=== PATIENT | male | born 1960 | race Caucasian/White ===

== ENCOUNTER 2017-05-13 22:03 | Emergency (ER) | END 2017-05-14 02:47 | disposition home or self-care (01) ==

== ENCOUNTER 2017-12-27 21:54 | Inpatient (IN) | END 2017-12-30 14:50 | disposition home or self-care (01) | DRG 871 ==

== ENCOUNTER 2018-02-16 08:20 | Emergency (ER) | payer MEDICARE, BC ==
[~2018-02-16] VITALS: Ht 177.8 cm; Wt 100.0 kg
[~2018-02-16 08:20] MED LIST: ASPI81TA52 PO; ATOR40TA68 PO; CEPH500C PO; FENO160T13 PO; GLIM4TAB PO; INSU300I SQ; LINA5TAB PO; NIAC1000 PO; OMEG1CAP2 PO
[2018-02-16] MEDS ORDERED: ONDANSETRON 4 MG INJ IV STA (08:24)
[2018-02-16] MEDS ORDERED: morphine 4 MG/ML VIAL IV STA (08:24)
[2018-02-16] MEDS ORDERED: SOD CHLORIDE 0.9% 1,000 ML IV STA (08:24)
[2018-02-16] MEDS ORDERED: PANTOPRAZOLE 40 MG INJ IV ONE (08:30)
[2018-02-16 08:33] VITALS: Ht 177.8 cm; Wt 100.0 kg
[2018-02-16] MEDS ORDERED: CEFTRIAXONE 1 GM/50 ML (PMX) 50 ML IVPB ONE (09:30)
[2018-02-16] MEDS ORDERED: ONDA4TAB14 PO (11:11)
[2018-02-16] MEDS ORDERED: HYDR-4011 PO (11:11)
[2018-02-16] MEDS ORDERED: NITR-58 PO (11:11)
[2018-02-16 11:23] VITALS: BP 117/68; PULSE 92
--- NOTE | 2018-02-16 13:38 | ERD ---
ER Documentation Chief Complaint Chief Complaint pt is bib RA 89 from home with c/o abd pain starting last night + vomiting HPI Patient is a 57-year-old male with diabetes who presents with saying that he feels "sick". The patient was brought in by ambulance. He had abdominal pain which started last night. He stated that he vomited bright red blood this morning. He has never had this before. He said "I think I just threw up too hard". He was vomiting first and then had the bloody vomit. He has had no treatment as of yet. Upon review of old medical records the patient has multiple visits to the ER. He does not remember the name of his primary doctor. ROS All systems reviewed and are negative except as per history of present illness. Medications Home Meds Active Scripts Ondansetron (Ondansetron Odt) 4 Mg Tab.rapdis, 4 MG PO Q6H PRN for NAUSEA AND/OR VOMITING, #10 TAB Prov:SAEED ROMANO MD 02/16/18 Hydrocodone/Acetaminophen ([place] 5-325 Tablet) 1 Each Tablet, 1 TAB PO Q6H PRN for PAIN, #7 TAB Prov:SAEED ROMANO MD 02/16/18 Nitrofurantoin Monohyd Macrocr* (Macrobid*) 100 Mg Capsr, 100 MG PO BID for 7 Days, CAP Prov:SAEED ROMANO MD 02/16/18 Reported Medications Aspirin (Low Dose Aspirin) 81 Mg Tablet.dr, 81 MG PO DAILY, #30 TAB 12/27/17 Niacin* (Niacin* ER) 1,000 Mg Tablet.sa, 1500 MG PO QHS, #30 TAB 12/27/17 Atorvastatin* (Atorvastatin*) 40 Mg Tablet, 40 MG PO QHS, #30 TAB 12/27/17 Insulin Glargine,Hum.rec.anlog ([place] Solostar) 300 Unit/1 Ml Insuln.pen, 30 UNIT SQ QHS, EA 12/27/17 [place]-3 Acid Ethyl Esters (Lovaza) 1 Gm Capsule, 2 GM PO BID, CAP 12/27/17 Linagliptin (TRADJENTA) 5 Mg Tablet, 5 MG PO DAILY, TAB 12/27/17 Fenofibrate, Micronized* (Fenofibrate*) 160 Mg Tablet, 160 MG PO DAILY, TAB 12/27/17 Glimepiride* (Glimepiride*) 4 Mg Tablet, 4 MG PO WITH BREAKFAST DINNE, TAB 12/27/17 Discontinued Scripts Cephalexin* (Cephalexin*) 500 Mg Capsule, 500 MG PO BID for 4 Days, #7 CAP next dose tonight 12/30 Prov:PAM REYONSO MD 12/30/17 Allergies Allergies: Coded Allergies: No Known Allergy (Unverified , 02/16/18) PMhx/Soc History of Surgery: Yes (2017 LEFT NEPHRECTOMY) Anesthesia Reaction: No Hx Neurological Disorder: No Hx Respiratory Disorders: No Hx Cardiac Disorders: Yes (HTN, HLD) Hx Psychiatric Problems: No Hx Miscellaneous Medical Probl: No Hx Alcohol Use: No Hx Substance Use: No Hx Tobacco Use: No Smoking Status: Never smoker FmHx Family History: No diabetes Physical Exam Vitals Vital Signs Date Temp Pulse Resp B/P (MAP) Pulse Ox O2 O2 Flow FiO2 Time Delivery Rate 02/16/18 92 117/68 97 Room Air 11:23 (84) 02/16/18 63 108/85 92 Room Air 09:16 (93) 02/16/18 98.9 89 18 108/85 100 08:33 (93) Physical Exam Const: No acute distress Head: Atraumatic Eyes: Normal Conjunctiva ENT: Normal External Ears, Nose and Mouth. Neck: Full range of motion. No meningismus. Resp: Clear to auscultation bilaterally Cardio: Regular rate and rhythm, no murmurs Abd: Soft, non tender, non distended. Normal bowel sounds Skin: No petechiae or rashes Back: No midline or flank tenderness Ext: No cyanosis, or edema Neur: Awake and alert Psych: Normal Mood and Affect Result Diagram: 02/16/18 0842 02/16/18 0843 Results 24 hrs Laboratory Tests Test 02/16/18 08:42 02/16/18 08:43 White Blood Count 10.8 10^3/ul Red Blood Count 4.43 10^6/ul Hemoglobin 12.9 g/dl Hematocrit 39.4 % Mean Corpuscular Volume 88.9 fl Mean Corpuscular Hemoglobin 29.1 pg Mean Corpuscular Hemoglobin Concent 32.7 g/dl Red Cell Distribution Width 15.3 % Platelet Count 268 10^3/UL Mean Platelet Volume 10.5 fl Immature Granulocytes % 0.300 % Neutrophils % 73.2 % Lymphocytes % 9.3 % Monocytes % 14.0 % Eosinophils % 2.7 % Basophils % 0.5 % Nucleated Red Blood Cells % 0.0 /100WBC Immature Granulocytes # 0.030 10^3/ul Neutrophils # 7.9 10^3/ul Lymphocytes # 1.0 10^3/ul Monocytes # 1.5 10^3/ul Eosinophils # 0.3 10^3/ul Basophils # 0.1 10^3/ul Nucleated Red Blood Cells # 0.0 10^3/ul Urine Color YELLOW Urine Clarity SLIGHTLY CLOUDY Urine pH 5.0 Urine Specific [place] 1.014 Urine Ketones NEGATIVE mg/dL Urine Nitrite NEGATIVE mg/dL Urine Bilirubin NEGATIVE mg/dL Urine Urobilinogen NEGATIVE mg/dL Urine Leukocyte Esterase 1+ Jonathan/ul Urine Microscopic RBC 1 /HPF Urine Microscopic WBC 9 /HPF Urine Hemoglobin 2+ mg/dL Urine Glucose NEGATIVE mg/dL Urine Total Protein 1+ mg/dl Sodium Level 142 mmol/L Potassium Level 4.2 mmol/L Chloride Level 107 mmol/L Carbon Dioxide Level 21 mmol/L Anion Gap 14 Blood Urea Nitrogen 37 mg/dl Creatinine 2.65 mg/dl Est Glomerular Filtrat Rate mL/min 25 mL/min Glucose Level 148 mg/dl Calcium Level 9.4 mg/dl Total Bilirubin 0.3 mg/dl Direct Bilirubin 0.00 mg/dl Indirect Bilirubin 0.3 mg/dl Aspartate Amino Transf (AST/SGOT) 62 IU/L Alanine Aminotransferase (ALT/SGPT) 37 IU/L Alkaline Phosphatase 60 IU/L Total Protein 8.5 g/dl Albumin 4.5 g/dl Globulin 4.00 g/dl Albumin/Globulin Ratio 1.12 Lipase 313 U/L Current Medications Medications Dose Sig/Julisa Start Time Status Last (Trade) Ordered Route PRN Stop Time Admin Dose Reason Admin Sodium 1,000 ml @ Q1H STAT 02/16/18 DC 02/16/18 Chloride 1,000 mls/hr IV 08:24 02/16/18 08:50 09:23 Morphine 4 mg ONCE STAT 02/16/18 DC 02/16/18 Sulfate IV 08:24 02/16/18 08:50 (morphine) 08:25 Ondansetron 4 mg ONCE STAT 02/16/18 DC 02/16/18 HCl (Zofran IV 08:24 02/16/18 08:50 Inj) 08:25 40 mg ONCE ONCE 02/16/18 DC 02/16/18 Pantoprazole IV 08:30 02/16/18 08:50 (Protonix 08:31 Iv) Ceftriaxone 50 ml @ ONCE ONCE 02/16/18 DC 02/16/18 Sodium 100 mls/hr IVPB 09:30 02/16/18 09:21 09:59 Procedures/MDM CT abdomen and pelvis was read by radiology. Patient is a 57-year-old male who presents with complaints of feeling sick with abdominal pain and vomiting blood. The patient has basically normal laboratory studies. He was found to have a mild urinary tract infection. CT scan of the abdomen pelvis shows no surgical process. At this point I doubt sepsis or serious bacterial infection. Laboratory studies were otherwise unremarkable and CT scan shows no surgical process. The patient can be managed as an outpatient does not require admission to the hospital at this time. The patient will be given a prescription for Macrobid but will need to follow-up closely with the primary doctor within 24-48 hours. The patient can return sooner for any worsening symptoms. Copies of laboratory studies and CT scan were given prior to discharge. Departure Diagnosis: Primary Impression: Cystitis Additional Impression: Abdominal pain Abdominal location: unspecified location Qualified Codes: R10.9 - Unspecified abdominal pain Condition: Fair Patient Instructions: Abdominal Pain, Cystitis Referrals: Your doctor Additional Instructions: Call your primary care doctor TOMORROW for an appointment during the next 1-2 days.See the doctor sooner or return here if your condition worsens before your appointment time. SAEED ROMANO MD Feb 16, 2018 13:38
== END 2018-02-16 11:29 | disposition home or self-care (01) ==
LOC: E/R 08:20
DX: N30.90 Cystitis, unspecified without hematuria (principal); I10 Essential (primary) hypertension; Z79.4 Long term (current) use of insulin; Z79.82 Long term (current) use of aspirin
CPT/HCPCS: 36415; 74176; 80053; 81001; 83690; 85025; 87086; 96374; 96375; 99285; C9113; J0696; J2270; J2405; J7030

== ENCOUNTER 2018-04-19 18:39 | Inpatient (IN) | payer MEDICARE, BC ==
[~2018-04-19] VITALS: Ht 172.7 cm; Wt 100.0 kg
[~2018-04-19 18:39] MED LIST changes: -CEPH500C PO; +HYDR-4011 PO; +NITR-58 PO; +ONDA4TAB14 PO
--- NOTE | 2018-04-19 18:47 | ERD ---
ER Documentation Chief Complaint Chief Complaint LUIS CAVAZOS from home,chest sharp nonradiating pain 10/10 HPI The patient is a 58-year-old male, presenting to the ER because of substernal chest pain that began about 30 minutes ago while he was watching TV, the pain is 10/10, no aggravating or relieving factor, denies similar symptoms previously, denies chest pain with vomiting/radiation/exertion/diaphoresis, dyspnea, abdominal pain, vomiting with dysuria, diarrhea. He denies smoking or drink He was treated by EMS with 2 nitroglycerin spray and 162 mg aspirin with some response. Past medical history: Hypertension, dyslipidemia, chronic kidney disease Past surgical history: Partial left nephrectomy ROS All systems reviewed and are negative except as per history of present illness. Medications Home Meds Active Scripts Ondansetron (Ondansetron Odt) 4 Mg Tab.rapdis, 4 MG PO Q6H PRN for NAUSEA AND/OR VOMITING, #10 TAB Prov:SAEED ROMANO MD 02/16/18 Hydrocodone/Acetaminophen ([place] 5-325 Tablet) 1 Each Tablet, 1 TAB PO Q6H PRN for PAIN, #7 TAB Prov:SAEED ROMANO MD 02/16/18 Nitrofurantoin Monohyd Macrocr* (Macrobid*) 100 Mg Capsr, 100 MG PO BID for 7 Days, CAP Prov:SAEED ROMANO MD 02/16/18 Reported Medications Aspirin (Low Dose Aspirin) 81 Mg Tablet.dr, 81 MG PO DAILY, #30 TAB 12/27/17 Niacin* (Niacin* ER) 1,000 Mg Tablet.sa, 1500 MG PO QHS, #30 TAB 12/27/17 Atorvastatin* (Atorvastatin*) 40 Mg Tablet, 40 MG PO QHS, #30 TAB 12/27/17 Insulin Glargine,Hum.rec.anlog ([place] Solostar) 300 Unit/1 Ml Insuln.pen, 30 UNIT SQ QHS, EA 12/27/17 [place]-3 Acid Ethyl Esters (Lovaza) 1 Gm Capsule, 2 GM PO BID, CAP 12/27/17 Linagliptin (TRADJENTA) 5 Mg Tablet, 5 MG PO DAILY, TAB 12/27/17 Fenofibrate, Micronized* (Fenofibrate*) 160 Mg Tablet, 160 MG PO DAILY, TAB 12/27/17 Glimepiride* (Glimepiride*) 4 Mg Tablet, 4 MG PO WITH BREAKFAST DINNE, TAB 12/27/17 Allergies Allergies: Coded Allergies: No Known Allergy (Unverified , 02/16/18) PMhx/Soc History of Surgery: Yes (2017 LEFT NEPHRECTOMY) Anesthesia Reaction: No Hx Neurological Disorder: No Hx Respiratory Disorders: No Hx Cardiac Disorders: Yes (HTN, HLD) Hx Psychiatric Problems: No Hx Miscellaneous Medical Probl: No Hx Alcohol Use: No Hx Substance Use: No Hx Tobacco Use: No Physical Exam Vitals Vital Signs Date Temp Pulse Resp B/P (MAP) Pulse Ox O2 O2 Flow FiO2 Time Delivery Rate 04/19/18 97.7 156 24 111/91 97 Room Air 19:31 (98) 04/19/18 97.9 135 18 131/73 100 18:42 (92) Physical Exam Const: No acute distress. Head: Atraumatic. Eyes: Normal Conjunctiva. ENT: Normal External Ears, Nose and Mouth. Neck: Full range of motion. No meningismus. Resp: Clear to auscultation bilaterally. Cardio: Irregularly irregular and tachycardic Abd: Soft, non distended, normal bowel sounds, non tender. Skin: No petechiae or rashes. Back: No midline or flank tenderness. Ext: No cyanosis, or edema. Neur: Awake and alert. No focal deficit Psych: Normal Mood and Affect. Result Diagram: 04/19/18191504/19/181915 Results 24 hrs Laboratory Tests Test 04/19/18 19:16 04/19/18 19:39 White Blood Count 7.6 10^3/ul Red Blood Count 4.76 10^6/ul Hemoglobin 13.9 g/dl Hematocrit 42.4 % Mean Corpuscular Volume 89.1 fl Mean Corpuscular Hemoglobin 29.2 pg Mean Corpuscular Hemoglobin Concent 32.8 g/dl Red Cell Distribution Width 14.5 % Platelet Count 255 10^3/UL Mean Platelet Volume 10.8 fl Immature Granulocytes % 0.500 % Neutrophils % 64.5 % Lymphocytes % 19.9 % Monocytes % 10.2 % Eosinophils % 4.1 % Basophils % 0.8 % Nucleated Red Blood Cells % 0.0 /100WBC Immature Granulocytes # 0.040 10^3/ul Neutrophils # 4.9 10^3/ul Lymphocytes # 1.5 10^3/ul Monocytes # 0.8 10^3/ul Eosinophils # 0.3 10^3/ul Basophils # 0.1 10^3/ul Nucleated Red Blood Cells # 0.0 10^3/ul Prothrombin Time 13.7 Sec Prothrombin Time Ratio 1.1 INR International Normalized Ratio 1.04 Activated Partial Thromboplast Time 27.7 Sec Sodium Level 136 mmol/L Potassium Level 3.8 mmol/L Chloride Level 99 mmol/L Carbon Dioxide Level 25 mmol/L Anion Gap 12 Blood Urea Nitrogen 31 mg/dl Creatinine 1.80 mg/dl Est Glomerular Filtrat Rate mL/min 39 mL/min Glucose Level 390 mg/dl Calcium Level 9.9 mg/dl Magnesium Level 1.1 mg/dl Troponin I 0.080 ng/ml B-Type Natriuretic Peptide 525 PG/ML Thyroid Stimulating Hormone (TSH) Pending Bedside Urine pH (LAB) 6.5 Bedside Urine Protein (LAB) 2+ Bedside Urine Glucose (UA) 0.50% Bedside Urine Ketones (LAB) Negative Bedside Urine Blood 1+ Bedside Urine Nitrite (LAB) Negative Bedside Urine Leukocyte Esterase (L Trace Current Medications Medications Dose Sig/Julisa Start Time Status Last (Trade) Ordered Route PRN Stop Time Admin Dose Reason Admin Diltiazem 10 mg ONCE ONCE 04/19/18 DC 04/19/18 HCl IV 19:00 04/19/18 19:07 (Cardizem Iv) 19:01 Diltiazem 10 mg ONCE ONCE 04/19/18 DC 04/19/18 HCl IV 20:00 04/19/18 19:58 (Cardizem Iv) 20:22 Diltiazem 10 mg ONCE ONCE 04/19/18 DC 04/19/18 HCl IV 20:00 04/19/18 19:45 (Cardizem Iv) 20:01 Diltiazem 10 mg ONCE ONCE 04/19/18 DC HCl IV 20:00 04/19/18 (Cardizem Iv) 20:01 Magnesium 100 ml @ ONCE ONCE 04/19/18 Sulfate/ 100 mls/hr IVPB 20:30 04/19/18 Dextrose 21:29 Insulin 10 unit ONCE ONCE 04/19/18 Human SC 20:30 04/19/18 Lispro 20:31 (Humalog) Digoxin 250 mcg ONCE ONCE 04/19/18 Cancel (Digoxin) IV 20:30 04/19/18 20:31 DC ONCE ONCE 04/19/18 Miscellaneous previous XX 20:30 04/19/18 hepa... 20:31 Information (* Miscellaneous Pharmacy Order) Heparin 4,000 unit ONCE ONCE 04/19/18 Sodium IV 20:30 04/19/18 (Porcine) 20:31 (Heparin (1000 Units/ml)) Heparin 4,000 unit PER PROTOCOL 04/19/18 Sodium PRN IV 20:30 (Porcine) aPTT<47 (Heparin (1000 Units/ml)) Heparin 250 ml @ PER 04/19/18 Sodium 10 mls/hr PROTOCOL IV 20:30 (Porcine) Procedures/[place] [id number] Radiology Main Line: [phone] DIAGNOSTIC IMAGING REPORT Patient: NICOLE SHAH : 1960 Age: 58 Sex: M MR #: [id number] DOS: 04/19/18 1850 Ordering MD: STELLA LUCERO MD Location: E/R Room/Bed: PROCEDURE: XR Chest CLINICAL INDICATION: Chest Pain. . TECHNIQUE: Frontal view of the chest COMPARISON: CR CHEST 01/28/2015; CR CHEST 07/16/2014; DX CHEST 04/01/2014 FINDINGS: The cardiomediastinal silhouette is within normal limits. No focal pulmonary consolidations. There is no evidence of significant pleural effusion or pneumothorax. There are degenerative changes of the spine. IMPRESSION: No radiographic evidence of acute cardiopulmonary disease. RPTAT: EE Sebas Bourgeois Physician Date Time Electronically viewed and signed by Sebas Bourgeois Physician on 04/19/2018 19:26 HtN/ CC: STELLA LUCERO MD [id number] EKG: Read by emergency physician Rate/Rhythm: Atrial fibrillation 144 beats/min QRS, ST, T-waves: No ST elevation, no T inversion, RVR, inferior ST abno rmality Impression: Abnormal EKG TSH Pending MEDICAL MAKING DECISION: The patient is a 58-year-old male, presenting with acute new onset atrial fibrillation, acute chest pain, acute hypomagnesemia, acute hyperglycemia, acute hematuria. He was treated with magnesium 1 g IV for acute hypomagnesia, Cardizem 10 mg IV x3, heparin bolus and drip per protocol for acute atrial fibrillation with RVR, 10 unit Humalog subcutaneously for acute hyperglycemia with good response The differential diagnoses considered include but are not limited to asthma, COPD, pneumonia, pulmonary embolus, pleural effusion, congestive heart failure. Critical Care: Time: 35 minutes excluding all billable procedures. Treatments/Evaluations: Close monitoring and treatment of unstable vital signs, cardiorespiratory, and neurologic status, while maintaining tight balance of fluid, respiratory, and cardiac interventions. Departure Diagnosis: Primary Impression: New onset atrial fibrillation Additional Impressions: Chest pain Hypomagnesemia Hyperglycemia Hematuria Comments I discussed the findings with the patient. I discussed the patient with the hospitalist Dr Wills at 8:25 pm. who was made aware of the lab, the treatment, the patient condition. The patient is admitted to Tel Disclaimer: Inadvertent spelling and grammatical errors are likely due to EHR/dictation software use and do not reflect on the overall quality of patient care. Also, please note that the electronic time recorded on this note does not necessarily reflect the actual time of the patient encounter. STELLA LUCERO MD Apr 19, 2018 18:47
[2018-04-19] MEDS ORDERED: DILTIAZEM 25 MG INJ IV ONE ×4 (19:00→20:00)
[2018-04-19] MEDS ORDERED: NACL 0.9% 3 ML SYG IV SCH (20:30)
[2018-04-19] MEDS ORDERED: HEPARIN 25000 UNITS/250 ML 250 ML IV SCH (20:30)
[2018-04-19] MEDS ORDERED: DIGOXIN 500 MCG INJ IV ONE (20:30)
[2018-04-19] MEDS ORDERED: MAGNESIUM SULFATE 1 GM/D5W 100 ML IVPB ONE (20:30)
[2018-04-19] MEDS ORDERED: ONDANSETRON 4 MG INJ IV PRN (20:30)
[2018-04-19] MEDS ORDERED: HEPARIN 1000 UNITS/ML 10 ML INJ IV PRN (20:30)
[2018-04-19] MEDS ORDERED: INSULIN LISPRO 100 UNIT/ML VIAL SC ONE (20:30)
[2018-04-19] MEDS ORDERED: morphine 2 MG INJ IV PRN (20:30)
[2018-04-19] MEDS ORDERED: HEPARIN 1000 UNITS/ML 10 ML INJ IV ONE (20:30)
[2018-04-19] MEDS ORDERED: ACETAMINOPHEN 325 MG TAB PO PRN (20:30)
[2018-04-19] MEDS ORDERED: NITROGLYCERIN (SL) 0.4 MG TAB SL PRN (20:30)
[2018-04-19] MEDS ORDERED: MAGNESIUM SULFATE 2 GM/50 ML 50 ML IVPB ONE (21:30)
[2018-04-19 22:34] VITALS: PULSE 79
--- NOTE | 2018-04-19 22:45 | HP ---
Date/Time of Note Date/Time of Note DATE: 04/19/18 TIME: 22:45 Assessment/Plan VTE Prophylaxis Pharmacological prophylaxis: heparin Lines/Catheters IV Catheter Type (from Nrs): Saline Lock Assessment/Plan Hospital Course This is a 58-year-old male being admitted to the telemetry floor for: #1 chest pain: Rule out ACS versus new onset atrial fibrillation. Will check cardiac enzymes x3, the initial troponin was 0.080. Patient was in rapid A. fib with RVR at 144 bpm. He did improve with Cardizem bolus. At the current time he is rate controlled. Check an echocardiogram. Check hemoglobin a1C, lipid panel, TSH. Nitro/morphine for pain. #2 new onset atrial fibrillation: Status post Cardizem 10 mg IV x4 currently rate controlled. PRN Lopressor for heart rate greater than 115. Patient was recently discontinued off atenolol which he does not know why he was taking. chadsvasc: 2. Heparin drip. #3 diabetes mellitus: Resume home basal insulin, insulin sliding scale, check hemoglobin A1c, hold home oral medications, diabetic diet #4 Nonoliguric chronic kidney disease: Patient's creatinine is 1.8 which is improved from previous. Will avoid nephrotoxic agents. Avoid NSAIDs. Renally dose medications. Consider nephrology consultation if patient ends up needing cardiology intervention. #5 hypertension: Monitor blood pressure, currently not on any antihypertensives #6 hyperlipidemia: Continue statin, resume niacin and fenofibrate as clinically indicated #7 elevated BNP: We will check an echocardiogram, no signs of current volume overload #8 DVT GI prophylaxis: Heparin, no GI prophylaxis indicated Further treatment strategy will be implemented as per the clinical course. Result Diagram: 04/19/18191504/19/181915 Results 24hrs Laboratory Tests Test 04/19/18 19:16 04/19/18 19:39 04/19/18 21:40 White Blood Count 7.6 # Red Blood Count 4.76 Hemoglobin 13.9 L Hematocrit 42.4 Mean Corpuscular Volume 89.1 Mean Corpuscular Hemoglobin 29.2 Mean Corpuscular Hemoglobin Concent 32.8 Red Cell Distribution Width 14.5 Platelet Count 255 Mean Platelet Volume 10.8 H Immature Granulocytes % 0.500 H Neutrophils % 64.5 Lymphocytes % 19.9 Monocytes % 10.2 Eosinophils % 4.1 Basophils % 0.8 Nucleated Red Blood Cells % 0.0 Immature Granulocytes # 0.040 H Neutrophils # 4.9 Lymphocytes # 1.5 Monocytes # 0.8 Eosinophils # 0.3 Basophils # 0.1 Nucleated Red Blood Cells # 0.0 Prothrombin Time 13.7 Prothrombin Time Ratio 1.1 INR International Normalized Ratio 1.04 Activated Partial Thromboplast Time 27.7 Sodium Level 136 Potassium Level 3.8 Chloride Level 99 Carbon Dioxide Level 25 Anion Gap 12 Blood Urea Nitrogen 31 H Creatinine 1.80 H Est Glomerular Filtrat Rate mL/min 39 L Glucose Level 390 H Calcium Level 9.9 Magnesium Level 1.1 L Troponin I 0.080 B-Type Natriuretic Peptide 525 H Thyroid Stimulating Hormone (TSH) 4.450 Bedside Urine pH (LAB) 6.5 Bedside Urine Protein (LAB) 2+ H Bedside Urine Glucose (UA) 0.50% H Bedside Urine Ketones (LAB) Negative Bedside Urine Blood 1+ H Bedside Urine Nitrite (LAB) Negative Bedside Urine Leukocyte Esterase (L Trace H Bedside Glucose 351 H HPI/ROS Admit Date/Time Admit Date/Time Hx of Present Illness Chief complaint: Chest pain substernal The patient is a 58-year-old male who presented to the ER from his [place] [facility] via EMS because of substernal chest pain that began about 30 minutes ago while he was watching TV, the pain is 10/10. The pain was nonradiating. He did not have any shortness of breath. He was treated with 2 sprays of nitroglycerin and 162 mg of aspirin in the ambulance. When he arrived in the emergency department he was noted to be in rapid A. fib with RVR. He was given approximately 4 doses of 10 mg of Cardizem which did result in improvement of the heart rate. Patient is currently irregularly irregular rate controlled. He reports resolution of his chest pain. Allergies: NKDA Medications: See MAR, his atenolol was recently discontinued. ROS Const: As per HPI Eyes : No pain discharge or redness or change in visual acuity ENT: No pain, sore throat, congestion, congestion, dysphagia or discharge Respiratory: No shortness of breath, cough, sputum, wheezing, or pleuritic pain Cardiovascular: As per HPI GI : no change in appetite, abdominal pain, nausea, vomiting, diarrhea, con stipation, or change in the color his stool Genitourinary: No dysuria, hematuria, flank pain , discharge or CVA tenderness Musculoskeletal: No joint pain, back pain, neck pain, restricted range of motion in neck or joints Skin: No rash, bruising or hives Neuro: No headache, dizziness, syncope, seizure, focal weakness Endocrine: No polyuria, polydipsia, temperature intolerance Psych: No hallucination, depression, anxiety or suicidal ideation PMH/Family/Social Past Medical History Hypertension, dyslipidemia, chronic kidney disease diabetes mellitus, history of kidney tumor Medications Current Medications Heparin Sodium (Porcine) (Heparin (1000 Units/ml)) 4,000 unit PER PROTOCOL PRN IV aPTT<47; Start 04/19/18 at 20:30 Heparin Sodium (Porcine) 250 ml @ 10 mls/hr PER PROTOCOL IV ; Start 04/19/18 at 20:30 Magnesium Sulfate 50 ml @ 25 mls/hr ONCE ONCE IVPB ; Start 04/19/18 at 21:30; Stop 04/19/18 at 23:29 IV Flush (NS 3 ml) 3 ml PER PROTOCOL IV ; Start 04/19/18 at 20:30 Ondansetron HCl (Zofran Inj) 4 mg Q6H PRN IV NAUSEA/VOMITING; Start 04/19/18 at 20:30 Aspirin (Aspirin) 81 mg DAILY PO ; Start 04/20/18 at 09:00 Nitroglycerin (Nitroglycerin (Sl Tab) 0.4 Mg) 1 tab Q5M PRN SL .CHEST PAIN; Start 04/19/18 at 20:30 Acetaminophen (Tylenol Tab) 650 mg Q6H PRN PO .PAIN 1-3 OR TEMP; Start 04/19/18 at 20:30 Morphine Sulfate (morphine) 1 mg Q4H PRN IV .PAIN 7-10; Start 04/19/18 at 20:30 Coded Allergies: No Known Allergy (Unverified , 02/16/18) Past Surgical History Partial left nephrectomy Past Surgical Hx: other Family History Significant Family History: no pertinent family hx Social History Alcohol Use: none Smoking Status: Never smoker Drug Use: none Exam/Review of Systems Vital Signs Vitals Vital Signs Date Temp Pulse Resp B/P (MAP) Pulse Ox O2 O2 Flow FiO2 Time Delivery Rate 04/19/18 97.7 88 19 135/90 99 Room Air 21:55 (105) Exam Exam General: Is currently sitting in bed in no acute distress HEENT: Atraumatic, normocephalic. The pupils are equal, round and reactive. Extraocular motor are intact Neck: Supple with full range of motion. No rigidity or meningismus Chest: Nontender to palpation Lungs: Clear to auscultation bilaterally no crackles rales or wheezing Heart: Irregularly irregular, rate controlled Abdomen: Obese, soft , nontender, nondistended , bowel sounds are present. No guarding no rebound tenderness , No masses or organomegaly. No costovertebral temporal angle mass Extremities: Normal to inspection, no edema no cyanosis Neurologic: Normal mental status, speech normal, cranial nerves II through XII are intact, motor and sensory are intact, no focal weakness Additional Comments Initial EKG: Rapid A. fib with RVR at approximately 144 bpm PROCEDURE: XR Chest CLINICAL INDICATION: Chest Pain. . TECHNIQUE: Frontal view of the chest COMPARISON: CR CHEST 01/28/2015; CR CHEST 07/16/2014; DX CHEST 04/01/2014 FINDINGS: The cardiomediastinal silhouette is within normal limits. No focal pulmonary consolidations. There is no evidence of significant pleural effusion or pneumothorax. There are degenerative changes of the spine. IMPRESSION: No radiographic evidence of acute cardiopulmonary disease. RPTAT: EE Physician Kody Date Time Electronically viewed and signed by Sebas Bourgeois Physician on 04/19/2018 19:26 HtN/ CC: STELLA LUCERO MD [id number] EMILY CASTILLO Apr 19, 2018 22:45
[2018-04-19] MEDS ORDERED: METOPROLOL 5 MG INJ IV PRN (23:00)
[2018-04-19 23:06] VITALS: Ht 172.7 cm; Wt 100.0 kg
[2018-04-19] MEDS ORDERED: GLUCOSE GEL 15 GRAM TUBE BUCCAL PRN (23:30)
[2018-04-19] MEDS ORDERED: DEXTROSE 50% 50 ML SYRINGE IV PRN ×2 (23:30)
[2018-04-19] MEDS ORDERED: GLUCOSE GEL 15 GRAM TUBE PO PRN ×2 (23:30)
[2018-04-19] MEDS ORDERED: GLUCAGON 1 MG INJ IM PRN (23:30)
[2018-04-19] MEDS: CEFTRIAXONE 1 GM/50 ML (PMX) 50 ML IVPB SCH (23:33)
[2018-04-19 23:49] VITALS: BP 133/83; PULSE 74; RESP 20
[2018-04-20] VITALS (31 sets, daily range): BP systolic 104–156; BP diastolic 60–95; PULSE 68–114; RESP 10–20
[2018-04-20] MEDS: INSULIN GLARGINE [LANTus] (100 UNITS/ML) SYG SC SCH ×2 (01:43→20:15)
[2018-04-20] MEDS: ACCU-CHEK XX SCH (02:00)
[2018-04-20] MEDS ORDERED: HEPARIN 1000 UNITS/ML 10 ML INJ IV PRN (02:00)
[2018-04-20] MEDS ORDERED: HEPARIN 1000 UNITS/ML 10 ML INJ IV ONE (02:00)
[2018-04-20] MEDS ORDERED: HEPARIN 25000 UNITS/250 ML 250 ML IV SCH (02:00)
[2018-04-20] MEDS: FISH OIL 1,000 MG CAP PO SCH ×2 (08:14→20:07)
[2018-04-20] MEDS: ASPIRIN 81 MG TAB PO SCH (08:14)
[2018-04-20] MEDS: INSULIN ASPART [NOVOLOG] 3 ML PEN SC SCH ×4 (08:17→21:32)
--- NOTE | 2018-04-20 08:40 | CONS ---
Assessment/Plan Assessment/Plan Hospital Course (Demo Recall) 1. Non-ST elevation myocardial infarction 2. Atrial fibrillation rapid ventricular response: Now has converted back to sinus 3. Diabetes 4. Hypertension 5. Dyslipidemia 6. Obesity rule out obstructive sleep apnea 7. Chronic kidney disease 8. Arrhythmias with frequent PVCs and bigeminy's Recommendations: Continue with aspirin. Patient has already been started on heparin drip as well . Continue with the beta-paresh statin. Diabetic control as per internal medicine Given his symptoms, chest pain, abnormal troponin, abnormal EKG and frequent PVCs and ischemia on the EKG he was recommended to undergo left heart catheterization coronary angiogram percutaneous coronary intervention. Risks benefits alternatives of procedure have been discussed with the patient in detail. Risks including but not limited to risk of infection vascular complication bleeding complication [place] stroke arrhythmia renal failure etc. discussed with the patient in detail. Increased risk of renal failure given his renal insufficiency have been discussed with the patient. Consent has been obtained. Patient will be taken to the Filing Or Registry Clerk. Thank you for his referral. We will continue to follow along with you SANTIAGO RENTERIA MD [facility] Consultation Date/Type/Reason Admit Date/Time Date of Consultation: Apr 20, 2018 Type of Consult Cardiology Reason for Consultation chest pain. abnormal trop Requesting Provider: EMILY CASTILLO Date/Time of Note DATE: 04/20/18 TIME: 08:33 Hx of Present Illness Interventional cardiology consultation note Chief complaint: Chest pain Reason for consult: Chest pain abnormal troponin atrial fibrillation History of present illness: Thank you for this referral. History was obtained from the patient who is a fair historian at best. From discussion with staff and physician review of the old chart This is a 58-year-old gentleman with history of diabetes hypertension chronic kidney disease obesity dyslipidemia who was brought into the emergency room kari use of chest pain. Patient stated last night she was watching TV when he started having severe chest pain and pressure. Feeling somebody hit him with a hammer in his chest. He came to emergency room was noted to be atrial fibrillation with very frequent PVCs. Since then he has converted back to sinus rhythm. He has still has frequent PVCs and bigeminy's. His troponin have been rising as well. Allergies: No reported drug allergies Medications were reviewed as per medical reconciliation sheet Family history: No history of early coronary artery disease Social history: Does not smoke or drink. Lives in a assisted Past medical history: Diabetes, hypertension, dyslipidemia, chronic kidney disease Review of system: Patient denies all others except for above-mentioned Past Medical History Home Meds Active Scripts Ondansetron (Ondansetron Odt) 4 Mg Tab.rapdis, 4 MG PO Q6H PRN for NAUSEA AND/OR VOMITING, #10 TAB Prov:SAEED ROMANO MD 02/16/18 Hydrocodone/Acetaminophen ([place] 5-325 Tablet) 1 Each Tablet, 1 TAB PO Q6H PRN f or PAIN, #7 TAB Prov:SAEED ROMANO MD 02/16/18 Nitrofurantoin Monohyd Macrocr* (Macrobid*) 100 Mg Capsr, 100 MG PO BID for 7 Days, CAP Prov:SAEED ROMANO MD 02/16/18 Reported Medications Aspirin (Low Dose Aspirin) 81 Mg Tablet.dr, 81 MG PO DAILY, #30 TAB 12/27/17 Niacin* (Niacin* ER) 1,000 Mg Tablet.sa, 1500 MG PO QHS, #30 TAB 12/27/17 Atorvastatin* (Atorvastatin*) 40 Mg Tablet, 40 MG PO QHS, #30 TAB 12/27/17 Insulin Glargine,Hum.rec.anlog (Toutj Solchristophe) 300 Unit/1 Ml Insuln.pen, 30 U NIT SQ QHS, EA 12/27/17 Cascade-3 Acid Ethyl Esters (Lovaza) 1 Gm Capsule, 2 GM PO BID, CAP 12/27/17 Linagliptin (TRADJENTA) 5 Mg Tablet, 5 MG PO DAILY, TAB 12/27/17 Fenofibrate, Micronized* (Fenofibrate*) 160 Mg Tablet, 160 MG PO DAILY, TAB 12/27/17 Glimepiride* (Glimepiride*) 4 Mg Tablet, 4 MG PO WITH BREAKFAST DINNE, TAB 12/27/17 Medications Current Medications Heparin Sodium (Porcine) (Heparin (1000 Units/ml)) 4,000 unit PER PROTOCOL PRN IV aPTT<47 Last administered on 04/20/18at 02:01; Admin Dose 4,000 UNIT; Start 04/19/18 at 20:30 Heparin Sodium (Porcine) 250 ml @ 10 mls/hr PER PROTOCOL IV Last administered on 04/20/18at 02:03; Admin Dose 10 MLS/HR; Start 04/19/18 at 20:30 IV Flush (NS 3 ml) 3 ml PER PROTOCOL IV ; Start 04/19/18 at 20:30 Ondansetron HCl (Zofran Inj) 4 mg Q6H PRN IV NAUSEA/VOMITING; Start 04/19/18 at 20:30 Aspirin (Aspirin) 81 mg DAILY PO Last administered on 04/20/18at 08:14; Admin Dose 81 MG; Start 04/20/18 at 09:00 Nitroglycerin (Nitroglycerin (Sl Tab) 0.4 Mg) 1 tab Q5M PRN SL .CHEST PAIN; Start 04/19/18 at 20:30 Acetaminophen (Tylenol Tab) 650 mg Q6H PRN PO .PAIN 1-3 OR TEMP; Start 04/19/18 at 20:30 Morphine Sulfate (morphine) 1 mg Q4H PRN IV .PAIN 7-10; Start 04/19/18 at 20:30 Atorvastatin Calcium (Lipitor) 40 mg QHS PO ; Start 04/20/18 at 21:00 Fish Oil (Fish Oil) 2,000 mg BID PO Last administered on 04/20/18at 08:14; Admin Dose 2,000 MG; Start 04/20/18 at 09:00 Metoprolol Tartrate (Lopressor) 5 mg Q6H PRN IV AFIB; Start 04/19/18 at 23:00 Insulin Glargine (Lantus) 30 units HS SC Last administered on 04/20/18at 01:43; Admin Dose 30 UNITS; Start 04/20/18 at 01:00 Diagnostic Test (Pha) (Accu-Chek) 1 ea 02 XX ; Start 04/20/18 at 02:00 Insulin Aspart (Novolog Insulin Pen) NOVOLOG *MILD* ALGORITHM WITH MEALS BEDTIME SC Last administered on 04/20/18at 08:17; Admin Dose 1 UNIT; Start 04/20/18 at 08:00 Ceftriaxone Sodium 50 ml @ 100 mls/hr Q24H IVPB Last administered on 04/19/18at 23:33; Admin Dose 100 MLS/HR; Start 04/19/18 at 23:00 Miscellaneous Information 1 ea NOTE XX ; Start 04/19/18 at 23:30 Glucose (Glutose) 15 gm Q15M PRN PO DECREASED GLUCOSE; Start 04/19/18 at 23:30 Glucose (Glutose) 22.5 gm Q15M PRN PO DECREASED GLUCOSE; Start 04/19/18 at 23:30 Dextrose (D50w Syringe) 25 ml Q15M PRN IV DECREASED GLUCOSE; Start 04/19/18 at 23:30 Dextrose (D50w Syringe) 50 ml Q15M PRN IV DECREASED GLUCOSE; Start 04/19/18 at 23:30 Glucagon (Glucagen) 1 mg Q15M PRN IM DECREASED GLUCOSE; Start 04/19/18 at 23:30 Glucose (Glutose) 15 gm Q15M PRN BUCCAL DECREASED GLUCOSE; Start 04/19/18 at 23:30 Allergies: Coded Allergies: No Known Allergy (Unverified , 02/16/18) Past Surgical History Past Surgical Hx: other Social History Alcohol Use: none Smoking Status: Never smoker Drug Use: none Exam/Review of Systems Vital Signs Vitals Vital Signs Date Temp Pulse Resp B/P (MAP) Pulse Ox O2 O2 Flow FiO2 Time Delivery Rate 04/20/18 97.9 71 18 150/83 98 07:38 (105) 04/19/18 2.0 23:50 04/19/18 Nasal 23:49 Cannula Intake and Output 04/19/18 04/19/18 04/20/18 1414:59 22:59 06:59 IntakeIntake Total 700 ml BalanceBalance 700 ml Exam Exam General: Obese gentleman no acute distress HEENT: NC/AT. pupils are equal. round. NECK: NO JVD. no stridor. CV: RRR. systolic murmur; no gallop or rubs. PULM: no wheezing or rhonchi. GI: SOFT, NT, ND, no rebound or guarding Extremity: trace B/L LE edema. no clubbing. neuro: awake and alert, OX3. Psych: calm and pleasant rectal: deferred : normal EKG was personally reviewed which shows atrial fibrillation rapid ventricular response. ST-T wave abnormality suggestive of inferolateral ischemia Chest x-ray shows No radiographic evidence of acute cardiopulmonary disease. Labs Result Diagram: 04/20/18 0309 04/19/18 1916 Results 24hrs Laboratory Tests Test 04/19/18 19:16 04/19/18 19:39 04/19/18 21:40 04/19/18 23:15 White Blood Count 7.6 # Red Blood Count 4.76 Hemoglobin 13.9 L Hematocrit 42.4 Mean Corpuscular Volume 89.1 Mean Corpuscular 29.2 Hemoglobin Mean Corpuscular 32.8 Hemoglobin Concent Red Cell Distribution 14.5 Width Platelet Count 255 Mean Platelet Volume 10.8 H Immature Granulocytes % 0.500 H Neutrophils % 64.5 Lymphocytes % 19.9 Monocytes % 10.2 Eosinophils % 4.1 Basophils % 0.8 Nucleated Red Blood 0.0 Cells % Immature Granulocytes # 0.040 H Neutrophils # 4.9 Lymphocytes # 1.5 Monocytes # 0.8 Eosinophils # 0.3 Basophils # 0.1 Nucleated Red Blood 0.0 Cells # Prothrombin Time 13.7 Prothrombin Time Ratio 1.1 INR International 1.04 Normalized Ratio Activated 27.7 Partial Thromboplast Time Sodium Level 136 Potassium Level 3.8 Chloride Level 99 Carbon Dioxide Level 25 Anion Gap 12 Blood Urea Nitrogen 31 H Creatinine 1.80 H Est Glomerular Filtrat 39 L Rate mL/min Glucose Level 390 H Calcium Level 9.9 Magnesium Level 1.1 L 1.5 L Troponin I 0.080 B-Type Natriuretic 525 H Peptide Thyroid Stimulating 4.450 Hormone (TSH) Bedside Urine pH (LAB) 6.5 Bedside Urine Protein 2+ H (LAB) Bedside Urine Glucose 0.50% H (UA) Bedside Urine Ketones Negative (LAB) Bedside Urine Blood 1+ H Bedside Urine Nitrite Negative (LAB) Bedside Urine Trace H Leukocyte Esterase (L Bedside Glucose 351 H Test 04/20/18 00:36 04/20/18 01:40 04/20/18 03:09 04/20/18 08:09 Creatine Kinase 266 H Creatine Kinase Index 5.6 Creatinine Kinase MB 15.00 H (Mass) Troponin I 1.410 *H Bedside Glucose 188 176 White Blood Count 7.9 Red Blood Count 4.88 Hemoglobin 14.2 Hematocrit 43.5 Mean Corpuscular Volume 89.1 Mean Corpuscular 29.1 Hemoglobin Mean Corpuscular 32.6 Hemoglobin Concent Red Cell Distribution 14.5 Width Platelet Count 193 # Mean Platelet Volume 12.0 H Immature Granulocytes % 0.800 H Neutrophils % 57.8 Lymphocytes % 24.8 Monocytes % 11.1 H Eosinophils % 4.6 Basophils % 0.9 Nucleated Red Blood 0.0 Cells % Immature Granulocytes # 0.060 H Neutrophils # 4.5 Lymphocytes # 2.0 Monocytes # 0.9 Eosinophils # 0.4 Basophils # 0.1 Nucleated Red Blood 0.0 Cells # Prothrombin Time 14.2 Prothrombin Time Ratio 1.1 INR International 1.09 Normalized Ratio Activated Pending Partial Thromboplast Time Medications Medications Current Medications Heparin Sodium (Porcine) (Heparin (1000 Units/ml)) 4,000 unit PER PROTOCOL PRN IV aPTT<47 Last administered on 04/20/18at 02:01; Admin Dose 4,000 UNIT; Start 04/19/18 at 20:30 Heparin Sodium (Porcine) 250 ml @ 10 mls/hr PER PROTOCOL IV Last administered on 04/20/18at 02:03; Admin Dose 10 MLS/HR; Start 04/19/18 at 20:30 IV Flush (NS 3 ml) 3 ml PER PROTOCOL IV ; Start 04/19/18 at 20:30 Ondansetron HCl (Zofran Inj) 4 mg Q6H PRN IV NAUSEA/VOMITING; Start 04/19/18 at 20:30 Aspirin (Aspirin) 81 mg DAILY PO Last administered on 04/20/18at 08:14; Admin Dose 81 MG; Start 04/20/18 at 09:00 Nitroglycerin (Nitroglycerin (Sl Tab) 0.4 Mg) 1 tab Q5M PRN SL .CHEST PAIN; Start 04/19/18 at 20:30 Acetaminophen (Tylenol Tab) 650 mg Q6H PRN PO .PAIN 1-3 OR TEMP; Start 04/19/18 at 20:30 Morphine Sulfate (morphine) 1 mg Q4H PRN IV .PAIN 7-10; Start 04/19/18 at 20:30 Atorvastatin Calcium (Lipitor) 40 mg QHS PO ; Start 04/20/18 at 21:00 Fish Oil (Fish Oil) 2,000 mg BID PO Last administered on 04/20/18at 08:14; Admin Dose 2,000 MG; Start 04/20/18 at 09:00 Metoprolol Tartrate (Lopressor) 5 mg Q6H PRN IV AFIB; Start 04/19/18 at 23:00 Insulin Glargine (Lantus) 30 units HS SC Last administered on 04/20/18at 01:43; Admin Dose 30 UNITS; Start 04/20/18 at 01:00 Diagnostic Test (Pha) (Accu-Chek) 1 ea 02 XX ; Start 04/20/18 at 02:00 Insulin Aspart (Novolog Insulin Pen) NOVOLOG *MILD* ALGORITHM WITH MEALS BEDTIME SC Last administered on 04/20/18at 08:17; Admin Dose 1 UNIT; Start 04/20/18 at 08:00 Ceftriaxone Sodium 50 ml @ 100 mls/hr Q24H IVPB Last administered on 04/19/18at 23:33; Admin Dose 100 MLS/HR; Start 04/19/18 at 23:00 Miscellaneous Information 1 ea NOTE XX ; Start 04/19/18 at 23:30 Glucose (Glutose) 15 gm Q15M PRN PO DECREASED GLUCOSE; Start 04/19/18 at 23:30 Glucose (Glutose) 22.5 gm Q15M PRN PO DECREASED GLUCOSE; Start 04/19/18 at 23:30 Dextrose (D50w Syringe) 25 ml Q15M PRN IV DECREASED GLUCOSE; Start 04/19/18 at 23:30 Dextrose (D50w Syringe) 50 ml Q15M PRN IV DECREASED GLUCOSE; Start 04/19/18 at 23:30 Glucagon (Glucagen) 1 mg Q15M PRN IM DECREASED GLUCOSE; Start 04/19/18 at 23:30 Glucose (Glutose) 15 gm Q15M PRN BUCCAL DECREASED GLUCOSE; Start 04/19/18 at 23:30 SANTIAGO RENTERIA MD Apr 20, 2018 08:40
[2018-04-20] MEDS ORDERED: IODIXANOL LOCM 100 ML BTL ONE (08:49)
[2018-04-20] MEDS ORDERED: LIDOCAINE 1% (MDV) 20 ML INJ ONE (08:49)
[2018-04-20] MEDS ORDERED: FENTAnyl 50 MCG/ML VIAL ONE (08:49)
[2018-04-20] MEDS ORDERED: MIDAZOLAM 1 MG/ML 2 ML INJ ONE (08:49)
[2018-04-20] MEDS ORDERED: NITROFURANTOIN (SR) 100 MG CAP PO SCH (09:00)
[2018-04-20] MEDS ORDERED: ASPIRIN (EC) 81 MG TAB PO SCH (09:00)
[2018-04-20] MEDS ORDERED: SOD CHLORIDE 0.9% 1,000 ML IV ONE (09:30)
--- NOTE | 2018-04-20 09:30 | CONS ---
DATE OF ADMISSION: 04/19/2018 DATE OF CONSULTATION: 04/20/2018 TYPE OF CONSULTATION: Nephrology. REASON FOR CONSULTATION: Acute kidney injury. PHYSICIAN REQUESTING CONSULTATION: Dr. Castillo. HISTORY OF PRESENT ILLNESS: This is a 58-year-old male with a past medical history of chronic kidney disease with a previous baseline creatinine of around 2 mg/dL, history of kidney tumor, status post resection, history of diabetes, hypertension, dyslipidemia, presents to [facility] with complaints of chest pain. The patient apparently was starting to have chest pain while watching television. The patient was having pressure feeling like someone hit him on the chest. As a result , he came to the emergency room. Upon arrival, the patient was noted to have elevated troponin and E KG findings, which suggested ischemia. The patient was placed on heparin drip and admitted to [facility] and pending possible cardiac catheterization. In terms of patient's renal history, the patient has underlying chronic kidney disease with previous baseline creatinine of around 2 mg/dL. On admission here, the patient's creatinine was 1.80 mg/dL. The patient currently denies any hemoptysis, hematemesis or hematochezia. PAST MEDICAL HISTORY: History of chronic kidney disease stage IIIB/IV, history of diabetes, hyperten diamond. PAST SURGICAL HISTORY: History of adrenalectomy. FAMILY HISTORY: No family history of kidney disease. SOCIAL HISTORY: He does not drink, smoke or do drugs. MEDICATIONS: Reviewed. REVIEW OF SYSTEMS: A 14-point review of systems was conducted. Pertinent positives stated in HPI, o therwise negative. PHYSICAL EXAMINATION: VITAL SIGNS: Blood pressure is 135/76, respirations 16, pulse 72, temperature 98.6. HEENT: Head is normocephalic. NECK: Supple. HEART: Regular rate. LUNGS: Show diminished breath sounds at the base. ABDOMEN: Soft, nontender to palpation without rebound or guarding. EXTREMITIES: Negative for clubbing, cyanosis, no edema. DERMATOLOGIC: No rashes. MUSCULOSKELETAL: No joint effusion. NEUROLOGIC: No change in exam. LABORATORY DATA: Shows sodium 136, potassium 3.8, BUN 31, creatinine 1.80, magnesium 1.1. White cou nt 7.3, hemoglobin 14.7, platelet count 239. ASSESSMENT AND PLAN: This is a 58-year-old male who presents with: 1. Chronic kidney disease stage IIIb with previous baseline creatinine around 2.0 mg/dL. The patien t's renal function is currently below previous baseline. The patient is pending cardiac catheterizat ion, is at moderate risk for contrast-associated nephropathy. Risks and benefits were explained to t he patient. Recommendation is to start the patient on IV hydration. We will give Mucomyst. Otherwi se, continue supportive care, renally dose all medicine, defer any KANA inhibitor or ARB at this time. 2. Anemia. Continue to monitor hemoglobin and hematocrit levels. 3. Mineral bone disorder, monitor calcium and phosphorus levels. 4. Hypertension. Continue current blood pressure regimen. Defer any KANA inhibitor or ARB at this t baldemar prior to cardiac catheterization. 5. Non-ST elevation myocardial infarction. The patient is pending cardiac catheterization. Continu e medical management. Follow up with cardiology. Continue heparin drip. 6. Atrial fibrillation. Continue current treatment plan. 7. Diabetes. Continue current insulin regimen. 8. Dyslipidemia. Continue statin therapy. Thank you, Dr. Castillo, for this interesting consult. It will be a pleasure to follow patient with krish abernathy throughout the hospital course. Dictated By: DEVORA KUMARI DO NR/NTS Conf#: [id number] DID#: [id number] CC: SANTIAGO RENTERIA MD; EMILY CASTILLO MD;*End*
[2018-04-20] MEDS ORDERED: CEFAZOLIN 1 GM/50 ML (PMX) 0 ML IVPB ONE (09:56)
[2018-04-20] MEDS ORDERED: CLOPIDOGREL 300 MG TAB ONE ×2 (09:56→11:11)
[2018-04-20] MEDS ORDERED: BIVALIRUDIN 250MG /NS 50 ML 50 ML IVPB ONE ×2 (09:56→10:24)
[2018-04-20] MEDS ORDERED: NITROGLYCERIN (IC) 100 MCG/ML INJ ONE (11:03)
[2018-04-20] MEDS ORDERED: ONDANSETRON 4 MG INJ ONE (11:04)
[2018-04-20] MEDS ORDERED: SOD CHLORIDE 0.9% 1,000 ML IV SCH (11:20)
[2018-04-20] MEDS ORDERED: morphine 2 MG INJ IV PRN (11:30)
[2018-04-20] MEDS ORDERED: OXYCODONE/ACETAMINOPHEN (5/325) TAB PO PRN ×2 (11:30)
[2018-04-20] MEDS ORDERED: ACETAMINOPHEN 325 MG TAB PO PRN (11:30)
[2018-04-20] MEDS ORDERED: BIVALIRUDIN 250 MG in SOD CHLORIDE 0.9% 500 ML IV SCH (11:30)
--- NOTE | 2018-04-20 11:41 | OPR ---
Date/Time of Note Date/Time of Note DATE: 04/20/18 TIME: 11:36 Operative Report Procedure Date: Apr 20, 2018 Preoperative Diagnosis NSTEMI Postoperative Diagnosis NSTEMI Operation/Procedure Performed PCI RCA Surgeon see signature line Electron Tube Assembler N/A Anesthesia Type: moderate sedation Estimated Blood Loss: minimal Transfusion none Specimen none Grafts/Implants none Complications none Procedure Description Disbursing Agent: Santiago Lozano MD Indication: NSTEMI Procure performed: #1 left heart catheterization and selective right and left coronary angiogram #2 Right femoral angiogram and closure using a Perclose device 3. Complex but successful PTCA and stenting of mid right coronary artery using a 2.5 x 20 mm Synergy drug-eluting stent 4. Moderate sedation for more than 75 minutes Findings: 1. Left main: is normal and birfurcates to LAD & LCX. 2. LAD: Is moderate size with no significant stenosis 3. Left circumflex artery: is oh dominant. it has multiple very small obtuse marginal branches. Left circumflex artery is extremely tortuous. It has luminal irregularities 4. RCA: is under size and is codominant . it has 50 % stenosis maximally. Mid level has about 90% stenosis. After successful PCI of the mid RCA no significant residual stenosis left 5. LV EDP is 24 with 10mmHg gradient across the aortic valve Procedure in detail: Written informed consent with obtained after risks benefits and alternatives discussed with the patient in detail. risks including but not limited to risk of infection vascular complications, bleeding complications, MD stroke arrhythmia renal failure at even were discussed with the patient in detail. Patient was brought into the cardiac car barn laborer and placed in supine position. Right and left groin area was prepped and draped in regular sterile fashion and then he was in anesthetized using 1% lidocaine. Right femoral artery was cannulated and using modified seldinger technique a 6 Iranian sheath was placed in the femoral artery. Femoral angiogram was performed JL4 guiding catheter was advanced to engage the left main coronary artery angiographic view was obtained. JR4 catheter was advanced and engaged into the right coronary artery and angiographic view was obtained. Then a pigtail was advanced to engage the left ventricle hemodynamics as recorded by pullback aortic pressure was measured. At this time we decided to perform PCI of the right coronary artery. A JR4 guiding head was advanced to engage the right coronary artery. BMW wire was used and advanced across the lesion and placed in the RV branch. Proximal to this area was angioplastied. Then I used multiple different wires to try to advance it into the distal right coronary artery. This area was extremely tortuous with multiple times that it was very difficult to catheter. With great difficulty was able to advance a PT light support wire into the distal right coronary artery. This area was ballooned with a 2040 by 2 5 balloon. Then I used a 2.5 x 20 mm Synergy drug-eluting stent stent which was placed across the lesion and deployed at 14 [place]. Final angiographic view was obtained which showed [place]-3 flow no evidence of dissection and no significant residual stenosis at the site of the stent. perclose was successfully deployed. Patient tolerated the procedure well with no complication. Patient is to be transferred to recovery in stable condition. contrast used: 115 visipaque Conclusions: Successful PTCA stenting of the mid right coronary artery from 90% stenosis to no significant residual stenosis using a 2.5 x 20 mm Synergy drug- eluting stent. Recommendations: Aggressive medical therapy. aspirin indefinitely dual antiplatlet therapy with aspirin and Plavix SANTIAGO LOZANO MD [facility] SANTIAGO LOZANO MD Apr 20, 2018 11:41
[2018-04-20] MEDS ORDERED: MAGNESIUM SULFATE 4 GM/100 ML 100 ML IVPB SCH (13:30)
--- NOTE | 2018-04-20 16:31 | PN ---
Date/Time of Note Date/Time of Note DATE: 04/20/18 TIME: 16:23 Assessment/Plan VTE Prophylaxis Risk score (from Nsg)>0 risk: 3 SCD applied (from Nsg): Yes Pharmacological prophylaxis: NA/contraindicated Pharm contraindication: low risk/ambulating Lines/Catheters IV C[facility]ter Type (from [facility] Peripheral IV Urinary Cath still in place: No Assessment/Plan Assessment/Plan 58 yo man with IDDM presents with chest pain; found to have NSTEMI # NSTEMI: - trop 0.08 -> 1.8 - Now s/p cardiac cath on 04/20, had 90% mid RCA lesion got PCI. - Aspirin, plavix - Dr. Lozano following #Atrial fibrillation #Frequent PVC with bigeminy and trigeminy - Converted out of A fib on arrival with cardizem bolus. - Dr. Lozano following. - Pending echo. - CHADSVASC 2. Will consider anticoagulation. # diabetes mellitus: - Resume home basal insulin, insulin sliding scale, hold home oral medications, diabetic diet # Nonoliguric chronic kidney disease: - Patient's creatinine is 1.8 which is improved from previous. - Will avoid nephrotoxic agents. - Avoid NSAIDs. - Renally dose medications. - Dr. Tripp consulted. # hypertension: Monitor blood pressure, currently not on any antihypertensives # hyperlipidemia: Continue statin, resume niacin and fenofibrate as clinically indicated # DVT GI prophylaxis: Heparin, no GI prophylaxis indicated Result Diagram: 04/20/18 0834 04/20/18 0834 Subjective 24 Hr Interval Summary Free Text/Dictation This morning went for cardiac cath. Had a mid RCA stenosis, got PCI. Upon return to telemetry he is now is normal sinus with with frequent PVCs causing trigeminy. He reports mild chest soreness, otherwise no complaints. Exam/Review of Systems Exam Vitals Vital Signs Date Temp Pulse Resp B/P (MAP) Pulse Ox O2 O2 Flow FiO2 Time Delivery Rate 04/20/18 97.9 84 18 127/72 97 15:46 (90) 04/20/18 Room Air 15:32 04/19/18 2.0 23:50 Intake and Output 04/19/18 04/19/18 04/20/18 1515:00 23:00 07:00 IntakeIntake Total 700 ml BalanceBalance 700 ml Exam General: Is currently sitting in bed in no acute distress HEENT: Atraumatic, normocephalic. The pupils are equal, round and reactive. Extraocular motor are intact Neck: Supple with full range of motion. No rigidity or meningismus Chest: Nontender to palpation Lungs: Clear to auscultation bilaterally no crackles rales or wheezing Heart:: Irregular with three beats followed by pause. No murmurs. Abdomen: Obese, soft , nontender, nondistended , bowel sounds are present. No guarding no rebound tenderness , No masses or organomegaly. No costovertebral temporal angle mass Extremities: R groin arterial puncture site intact with no hematoma or bleeding. Groin: R scrotum has large, raised, fleshy plaques with rolled borders. Says it has been there since age 19. Results Results 24hrs Laboratory Tests Test 04/19/18 19:16 04/19/18 19:39 04/19/18 21:40 04/19/18 23:15 White Blood Count 7.6 # Red Blood Count 4.76 Hemoglobin 13.9 L Hematocrit 42.4 Mean Corpuscular Volume 89.1 Mean Corpuscular 29.2 Hemoglobin Mean Corpuscular 32.8 Hemoglobin Concent Red Cell Distribution 14.5 Width Platelet Count 255 Mean Platelet Volume 10.8 H Immature Granulocytes % 0.500 H Neutrophils % 64.5 Lymphocytes % 19.9 Monocytes % 10.2 Eosinophils % 4.1 Basophils % 0.8 Nucleated Red Blood 0.0 Cells % Immature Granulocytes # 0.040 H Neutrophils # 4.9 Lymphocytes # 1.5 Monocytes # 0.8 Eosinophils # 0.3 Basophils # 0.1 Nucleated Red Blood 0.0 Cells # Prothrombin Time 13.7 Prothrombin Time Ratio 1.1 INR International 1.04 Normalized Ratio Activated 27.7 Partial Thromboplast Time Sodium Level 136 Potassium Level 3.8 Chloride Level 99 Carbon Dioxide Level 25 Anion Gap 12 Blood Urea Nitrogen 31 H Creatinine 1.80 H Est Glomerular Filtrat 39 L Rate mL/min Glucose Level 390 H Calcium Level 9.9 Magnesium Level 1.1 L 1.5 L Troponin I 0.080 B-Type Natriuretic 525 H Peptide Thyroid Stimulating 4.450 Hormone (TSH) Bedside Urine pH (LAB) 6.5 Bedside Urine Protein 2+ H (LAB) Bedside Urine Glucose 0.50% H (UA) Bedside Urine Ketones Negative (LAB) Bedside Urine Blood 1+ H Bedside Urine Nitrite Negative (LAB) Bedside Urine Trace H Leukocyte Esterase (L Bedside Glucose 351 H Test 04/20/18 00:36 04/20/18 01:40 04/20/18 03:09 04/20/18 08:09 Creatine Kinase 266 H Creatine Kinase Index 5.6 Creatinine Kinase MB 15.00 H (Mass) Troponin I 1.410 *H Bedside Glucose 188 176 White Blood Count 7.9 Red Blood Count 4.88 Hemoglobin 14.2 Hematocrit 43.5 Mean Corpuscular Volume 89.1 Mean Corpuscular 29.1 Hemoglobin Mean Corpuscular 32.6 Hemoglobin Concent Red Cell Distribution 14.5 Width Platelet Count 193 # Mean Platelet Volume 12.0 H Immature Granulocytes % 0.800 H Neutrophils % 57.8 Lymphocytes % 24.8 Monocytes % 11.1 H Eosinophils % 4.6 Basophils % 0.9 Nucleated Red Blood 0.0 Cells % Immature Granulocytes # 0.060 H Neutrophils # 4.5 Lymphocytes # 2.0 Monocytes # 0.9 Eosinophils # 0.4 Basophils # 0.1 Nucleated Red Blood 0.0 Cells # Prothrombin Time 14.2 Prothrombin Time Ratio 1.1 INR International 1.09 Normalized Ratio Activated Pending Partial Thromboplast Time Test 04/20/18 08:33 04/20/18 08:34 04/20/18 12:24 04/20/18 14:10 Activated 60.4 H Partial Thromboplast Time White Blood Count 7.3 Red Blood Count 5.17 Hemoglobin 14.7 Hematocrit 46.5 Mean Corpuscular Volume 89.9 Mean Corpuscular 28.4 L Hemoglobin Mean Corpuscular 31.6 L Hemoglobin Concent Red Cell Distribution 14.6 H Width Platelet Count 239 # Mean Platelet Volume 10.7 H Immature Granulocytes % 0.500 H Neutrophils % 59.7 Lymphocytes % 22.8 Monocytes % 10.4 Eosinophils % 5.6 Basophils % 1.0 Nucleated Red Blood 0.0 Cells % Immature Granulocytes # 0.040 H Neutrophils # 4.4 Lymphocytes # 1.7 Monocytes # 0.8 Eosinophils # 0.4 Basophils # 0.1 Nucleated Red Blood 0.0 Cells # Sodium Level 141 Potassium Level 4.0 Chloride Level 104 Carbon Dioxide Level 25 Anion Gap 12 Blood Urea Nitrogen 28 H Creatinine 1.77 H Est Glomerular Filtrat 40 L Rate mL/min Glucose Level 192 # Hemoglobin A1c 7.2 H Calcium Level 9.9 Magnesium Level 1.6 L Total Bilirubin 0.1 L Direct Bilirubin 0.00 Indirect Bilirubin 0.1 Aspartate Amino 47 H Transf (AST/SGOT) Alanine 38 Aminotransferase (ALT/SG PT) Alkaline Phosphatase 92 Creatine Kinase 308 H 273 H Creatine Kinase Index 6.9 6.1 Creatinine Kinase MB 21.10 H 16.60 H (Mass) Troponin I 1.860 *H 1.820 *H Total Protein 7.5 Albumin 4.2 Globulin 3.30 H Albumin/Globulin Ratio 1.27 Triglycerides Level 446 H Cholesterol Level 266 H LDL Cholesterol, 145 Calculated HDL Cholesterol 32 Cholesterol/HDL Ratio 8.3 Thyroid Stimulating 5.050 H Hormone (TSH) Bedside Glucose 174 Medications Medication Current Medications IV Flush (NS 3 ml) 3 ml PER PROTOCOL IV ; Start 04/19/18 at 20:30 Ondansetron HCl (Zofran Inj) 4 mg Q6H PRN IV NAUSEA/VOMITING Last administered on 04/20/18 12:12; Admin Dose 4 MG; Start 04/19/18 at 20:30 Aspirin (Aspirin) 81 mg DAILY PO Last administered on 04/20/18 08:14; Admin Dose 81 MG; Start 04/20/18 at 09:00 Nitroglycerin (Nitroglycerin (Sl Tab) 0.4 Mg) 1 tab Q5M PRN SL .CHEST PAIN; Start 04/19/18 at 20:30 Fish Oil (Fish Oil) 2,000 mg BID PO Last administered on 04/20/18 08:14; Admin Dose 2,000 MG; Start 04/20/18 at 09:00 Insulin Glargine (Lantus) 30 units HS SC Last administered on 04/20/18 01:43; Admin Dose 30 UNITS; Start 04/20/18 at 01:00 Diagnostic Test (Pha) (Accu-Chek) 1 ea 02 XX ; Start 04/20/18 at 02:00 Insulin Aspart (Novolog Insulin Pen) NOVOLOG *MILD* ALGORITHM WITH MEALS BEDTIME SC Last administered on 04/20/18 08:17; Admin Dose 1 UNIT; Start 04/20/18 at 08:00 Ceftriaxone Sodium 50 ml @ 100 mls/hr Q24H IVPB Last administered on 3/4/19at 23:33; Admin Dose 100 MLS/HR; Start 04/19/18 at 23:00 Miscellaneous Information 1 ea NOTE XX ; Start 04/19/18 at 23:30 Glucose (Glutose) 15 gm Q15M PRN PO DECREASED GLUCOSE; Start 04/19/18 at 23:30 Glucose (Glutose) 22.5 gm Q15M PRN PO DECREASED GLUCOSE; Start 04/19/18 at 23:30 Dextrose (D50w Syringe) 25 ml Q15M PRN IV DECREASED GLUCOSE; Start 04/19/18 at 23:30 Dextrose (D50w Syringe) 50 ml Q15M PRN IV DECREASED GLUCOSE; Start 04/19/18 at 23:30 Glucagon (Glucagen) 1 mg Q15M PRN IM DECREASED GLUCOSE; Start 04/19/18 at 23:30 Glucose (Glutose) 15 gm Q15M PRN BUCCAL DECREASED GLUCOSE; Start 04/19/18 at 23 :30 Clopidogrel Bisulfate (plaVIX) 75 mg DAILY PO ; Start 04/21/18 at 09:00 Acetaminophen (Tylenol Tab) 650 mg Q4H PRN PO PAIN; Start 04/20/18 at 11:30 Oxycodone/ Acetaminophen (Percocet (5/ 325)) 1 tab Q4H PRN PO PAIN 1-5/10; Start 04/20/18 at 11:30 Oxycodone/ Acetaminophen (Percocet (5/ 325)) 2 tab Q4H PRN PO PAIN 6-10/10; Start 04/20/18 at 11:30 Morphine Sulfate (morphine) 1 mg Q1H PRN IV PAIN Last administered on 04/20/18at 12:11; Admin Dose 1 MG; Start 04/20/18 at 11:30 Atorvastatin Calcium (Lipitor) 80 mg DAILY@21 PO ; Start 04/20/18 at 21:00 Sodium Chloride 1,000 ml @ 100 mls/hr Q10H IV Last administered on 04/20/18at 12:50; Admin Dose 100 MLS/HR; Start 04/20/18 at 11:20; Stop 04/20/18 at 21:19 Magnesium Sulfate 100 ml @ 25 mls/hr ONCE IVPB Last administered on 04/20/18at 15:28; Admin Dose 25 MLS/HR; Start 04/20/18 at 13:30; Stop 04/20/18 at 17:29 Metoprolol Succinate (Toprol Xl) 25 mg DAILY PO ; Start 04/21/18 at 09:00 ANNEMARIE HENRY MD Apr 20, 2018 16:31
[2018-04-20] MEDS: ATORVASTATIN 80 MG TAB PO SCH (20:07)
[2018-04-20] MEDS ORDERED: [UNRECOGNIZED DRUG - OTHER] SQ SCH (21:00)
[2018-04-20] MEDS ORDERED: INSULIN GLARGINE HUM REC ANLOG 30 UNIT SQ SCH (21:00)
[2018-04-20] MEDS ORDERED: ATORVASTATIN 40 MG TAB PO SCH (21:00)
[2018-04-21] VITALS (11 sets, daily range): BP systolic 107–134; BP diastolic 61–78; PULSE 50–99; RESP 16–18
[2018-04-21] MEDS: CEFTRIAXONE 1 GM/50 ML (PMX) 50 ML IVPB SCH (00:21)
[2018-04-21] MEDS: ACCU-CHEK XX SCH (02:24)
[2018-04-21] MEDS: CLOPIDOGREL 75 MG TAB PO SCH (08:52)
[2018-04-21] MEDS: FISH OIL 1,000 MG CAP PO SCH ×2 (08:52→20:10)
[2018-04-21] MEDS: METOPROLOL (XL) 25 MG TAB PO SCH (08:53)
[2018-04-21] MEDS: ASPIRIN 81 MG TAB PO SCH (08:53)
[2018-04-21] MEDS: INSULIN ASPART [NOVOLOG] 3 ML PEN SC SCH ×4 (09:01→20:10)
--- NOTE | 2018-04-21 09:05 | PN ---
DATE: 04/21/2018 SUBJECTIVE: The patient is stable, no events overnight. No fevers, chills, nausea, or vomiting. Th e patient had cardiac catheterization yesterday with PCI of the mid coronary arteries using a drug-el uting stent. No other events noted. OBJECTIVE: VITAL SIGNS: Blood pressure is 124/61, respirations 16, pulse 81, temperature 97.4. HEENT: Head is normocephalic. NECK: Supple. HEART: Regular rate. LUNGS: Show diminished breath sounds at the base. ABDOMEN: Soft, nontender to palpation. No rebound or guarding. EXTREMITIES: Negative for clubbing, cyanosis, no edema. DERMATOLOGIC: No rashes. MUSCULOSKELETAL: No joint effusion. NEUROLOGIC: No change in exam. MEDICATIONS: Reviewed. LABORATORY DATA: Shows white count 8.6, hemoglobin 12.7, platelet count 251. Sodium 139, potassium 4.1, BUN 74, creatinine 1.86. ASSESSMENT AND PLAN: 1. Chronic kidney disease stage IIIb with previous baseline creatinine of 2.0 mg/dL. The patient's renal function is currently below baseline. The patient is status post cardiac catheterization. No evidence of contrast-associated nephropathy. We will continue current treatment plan, supportive car e, renally dose all medicines. 2. Anemia. Monitor hemoglobin and hematocrit levels. 3. Mineral bone disorder. Monitor calcium and phosphorus levels. 4. Hypertension. Continue current blood pressure regimen. Okay to resume KANA inhibitor or ARB. 5. Non-ST elevation myocardial infarction. The patient is status post cardiac catheterization with PCI to the right coronary artery. Continue medical management. 6. Atrial fibrillation. Continue current treatment plan. 7. Diabetes. Continue current insulin regimen. 8. Dyslipidemia. Continue statin therapy. Dictated By: DEVORA KUMARI DO NR/NTS Conf#: [id number] DID#: [id number] CC: EMILY CASTILLO MD; SANTIAGO RENTERIA MD; ANNEMARIE HENRY MD;*[facility]*
[2018-04-21] MEDS ORDERED: SOD CHLORIDE 0.9% 1,000 ML IV SCH (10:14)
--- NOTE | 2018-04-21 11:01 | CONS ---
Consult Date/Type/Reason Admit Date/Time Apr 19, 2018 at 20:24 Initial Consult Date 04/20/18 Type of Consultation: CV Requesting Provider: EMILY CASTILLO Date/Time of Note DATE: 04/21/18 TIME: 10:58 Subjective Interventional cardiology follow-up progress note Subjective: Case discussed with the staff telemetry was reviewed patient still with frequent PVC but improving. Discussed with multiple physicians as well. Patient with no chest pain or pressure no palpitation no more episode of atrial fibrillation With no groin pain or bleeding Objective: General: no acute distress HEENT: NC/AT. pupils are equal. round. NECK: NO JVD. no stridor. CV: RRR. systolic murmur; no gallop or rubs. PULM: no wheezing or rhonchi. GI: SOFT, NT, ND, no rebound or guarding Extremity: trace B/L LE edema. no clubbing. neuro: awake and alert, OX3. Psych: calm and pleasant rectal: deferred : normal Vascular: Right femoral no bleeding or hematoma Objective Vitals Vital Signs Date Temp Pulse Resp B/P (MAP) Pulse Ox O2 O2 Flow FiO2 Time Delivery Rate 04/21/18 88 08:37 04/21/18 97.4 16 124/61 94 07:20 (82) 04/21/18 Room Air 04:00 04/19/18 2.0 23:50 Intake and Output 04/20/18 04/20/18 04/21/18 1414:59 22:59 06:59 IntakeIntake Total 60 ml 1870 ml 850 ml OutputOutput Total 800 ml 400 ml BalanceBalance 60 ml 1070 ml 450 ml Results/Medications Result Diagram: 04/21/18 0646 04/21/18 0646 Results 24 hrs Laboratory Tests Test 04/20/18 12:24 04/20/18 14:10 04/20/18 16:00 04/20/18 16:31 Bedside Glucose 174 Creatine Kinase 273 H 291 H Creatine Kinase Index 6.1 6.5 Creatinine Kinase MB 16.60 H 18.90 H (Mass) Troponin I 1.820 *H 3.620 *H Urine Color STRAW Urine Clarity CLEAR Urine pH 6.0 Urine Specific [place] 1.029 Urine Ketones NEGATIVE Urine Nitrite NEGATIVE Urine Bilirubin NEGATIVE Urine Urobilinogen NEGATIVE Urine Leukocyte Esterase 2+ H Urine Microscopic RBC 7 H Urine Microscopic WBC 51 H Urine Bacteria FEW A Urine Hemoglobin 2+ H Urine Random Creatinine 57.82 Urine Random Sodium 119 H Urine Glucose 1+ H Urine Total Protein 65.0 H Test 04/20/18 17:14 04/20/18 19:29 04/21/18 02:23 04/21/18 06:46 Bedside Glucose 152 195 156 White Blood Count 8.6 Red Blood Count 4.41 L Hemoglobin 12.7 L Hematocrit 39.9 L Mean Corpuscular Volume 90.5 Mean Corpuscular 28.8 L Hemoglobin Mean Corpuscular 31.8 L Hemoglobin Concent Red Cell Distribution 14.8 H Width Platelet Count 251 Mean Platelet Volume 10.5 H Immature Granulocytes % 0.600 H Neutrophils % 69.7 Lymphocytes % 14.2 L Monocytes % 9.9 Eosinophils % 4.9 Basophils % 0.7 Nucleated Red Blood 0.0 Cells % Immature Granulocytes # 0.050 H Neutrophils # 6.0 Lymphocytes # 1.2 Monocytes # 0.9 Eosinophils # 0.4 Basophils # 0.1 Nucleated Red Blood 0.0 Cells # Sodium Level 139 Potassium Level 4.1 Chloride Level 104 Carbon Dioxide Level 26 Anion Gap 9 Blood Urea Nitrogen 24 H Creatinine 1.86 H Est Glomerular Filtrat 38 L Rate mL/min Glucose Level 178 Calcium Level 8.9 Phosphorus Level 3.4 Magnesium Level 2.3 Total Bilirubin 0.1 L Direct Bilirubin 0.00 Indirect Bilirubin 0.1 Aspartate Amino 49 H Transf (AST/SGOT) Alanine 32 Aminotransferase (ALT/SG PT) Alkaline Phosphatase 65 Creatine Kinase 249 H Creatine Kinase Index 5.5 Creatinine Kinase MB 13.70 H (Mass) Troponin I 3.710 *H B-Type Natriuretic 346 H Peptide Total Protein 6.9 Albumin 3.7 Globulin 3.20 Albumin/Globulin Ratio 1.15 Thyroid Stimulating Pending Hormone (TSH) Test 04/21/18 08:51 Bedside Glucose 160 Home Meds Active Scripts Ondansetron (Ondansetron Odt) 4 Mg Tab.rapdis, 4 MG PO Q6H PRN for NAUSEA AND/OR VOMITING, #10 TAB Prov:SAEED ROMANO MD 02/16/18 Hydrocodone/Acetaminophen ([place] 5-325 Tablet) 1 Each Tablet, 1 TAB PO Q6H PRN for PAIN, #7 TAB Prov:SAEED ROMANO MD 02/16/18 Nitrofurantoin Monohyd Macrocr* (Macrobid*) 100 Mg Capsr, 100 MG PO BID for 7 Days, CAP Prov:SAEED ROMANO MD 02/16/18 Reported Medications Aspirin (Low Dose Aspirin) 81 Mg Tablet.dr, 81 MG PO DAILY, #30 TAB 12/27/17 Niacin* (Niacin* ER) 1,000 Mg Tablet.sa, 1500 MG PO QHS, #30 TAB 12/27/17 Atorvastatin* (Atorvastatin*) 40 Mg Tablet, 40 MG PO QHS, #30 TAB 12/27/17 Insulin Glargine,Hum.rec.anlog (Toujeo Solostar) 300 Unit/1 Ml Insuln.pen, 30 UNIT SQ QHS, EA 12/27/17 [place]-3 Acid Ethyl Esters (Lovaza) 1 Gm Capsule, 2 GM PO BID, CAP 12/27/17 Linagliptin (TRADJENTA) 5 Mg Tablet, 5 MG PO DAILY, TAB 12/27/17 Fenofibrate, Micronized* (Fenofibrate*) 160 Mg Tablet, 160 MG PO DAILY, TAB 12/27/17 Glimepiride* (Glimepiride*) 4 Mg Tablet, 4 MG PO WITH BREAKFAST DINNE, TAB 12/27/17 Medications Current Medications IV Flush (NS 3 ml) 3 ml PER PROTOCOL IV ; Start 04/19/18 at 20:30 Ondansetron HCl (Zofran Inj) 4 mg Q6H PRN IV NAUSEA/VOMITING Last administered on 04/20/18at 12:12; Admin Dose 4 MG; Start 04/19/18 at 20:30 Aspirin (Aspirin) 81 mg DAILY PO Last administered on 04/21/18at 08:53; Admin Dose 81 MG; Start 04/20/18 at 09:00 Nitroglycerin (Nitroglycerin (Sl Tab) 0.4 Mg) 1 tab Q5M PRN SL .CHEST PAIN; Start 04/19/18 at 20:30 Fish Oil (Fish Oil) 2,000 mg BID PO Last administered on 04/21/18at 08:52; Admin Dose 2,000 MG; Start 04/20/18 at 09:00 Insulin Glargine (Lantus) 30 units HS SC Last administered on 04/20/18at 20:15; Admin Dose 30 UNITS; Start 04/20/18 at 01:00 Diagnostic Test (Pha) (Accu-Chek) 1 ea 02 XX Last administered on 04/21/18at 02:24; Admin Dose 1 EA; Start 04/20/18 at 02:00 Insulin Aspart (Novolog Insulin Pen) NOVOLOG *MILD* ALGORITHM WITH MEALS BEDTIME SC Last administered on 04/21/18at 09:01; Admin Dose 1 UNIT; Start 04/20/18 at 08:00 Ceftriaxone Sodium 50 ml @ 100 mls/hr Q24H IVPB Last administered on 04/21/18at 00:21; Admin Dose 100 MLS/HR; Start 04/19/18 at 23:00 Miscellaneous Information 1 ea NOTE XX ; Start 04/19/18 at 23:30 Glucose (Glutose) 15 gm Q15M PRN PO DECREASED GLUCOSE; Start 04/19/18 at 23:30 Glucose (Glutose) 22.5 gm Q15M PRN PO DECREASED GLUCOSE; Start 04/19/18 at 23:30 Dextrose (D50w Syringe) 25 ml Q15M PRN IV DECREASED GLUCOSE; Start 04/19/18 at 23:30 Dextrose (D50w Syringe) 50 ml Q15M PRN IV DECREASED GLUCOSE; Start 04/19/18 at 23:30 Glucagon (Glucagen) 1 mg Q15M PRN IM DECREASED GLUCOSE; Start 04/19/18 at 23:30 Glucose (Glutose) 15 gm Q15M PRN BUCCAL DECREASED GLUCOSE; Start 04/19/18 at 23:30 Clopidogrel Bisulfate (plaVIX) 75 mg DAILY PO Last administered on 04/21/18at 08:52; Admin Dose 75 MG; Start 04/21/18 at 09:00 Acetaminophen (Tylenol Tab) 650 mg Q4H PRN PO PAIN; Start 04/20/18 at 11:30 Oxycodone/ Acetaminophen (Percocet (5/ 325)) 1 tab Q4H PRN PO PAIN 1-510; Start 04/20/18 at 11:30 Oxycodone/ Acetaminophen (Percocet (5/ 325)) 2 tab Q4H PRN PO PAIN 6-10/10; Start 04/20/18 at 11:30 Morphine Sulfate (morphine) 1 mg Q1H PRN IV PAIN Last administered on 04/20/18at 12:11; Admin Dose 1 MG; Start 04/20/18 at 11:30 Atorvastatin Calcium (Lipitor) 80 mg DAILY@21 PO Last administered on 04/20/18at 20:07; Admin Dose 80 MG; Start 04/20/18 at 21:00 Metoprolol Succinate (Toprol Xl) 25 mg DAILY PO Last administered on 04/21/18at 08:53; Admin Dose 25 MG; Start 04/21/18 at 09:00 Miscellaneous Information (* Miscellaneous Pharmacy Order) Hold all Metformin ... ONCE ONCE XX ; Start 04/21/18 at 10:30; Stop 04/21/18 at 10:31; Status UNV Clopidogrel Bisulfate (plaVIX) 75 mg DAILY PO ; Start 04/22/18 at 09:00; Status UNV Sodium Chloride 1,000 ml @ 50 mls/hr Q20H IV ; Start 04/21/18 at 10:14; Stop 04/21/18 at 15:13; Status UNV Assessment/Plan Hospital Course (Demo Recall) 1. Non-ST elevation myocardial infarction: There is post PCI right coronary artery 2. PAtrial fibrillation rapid ventricular response: Now has converted back to sinus 3. Diabetes 4. Hypertension 5. Dyslipidemia 6. Obesity rule out obstructive sleep apnea 7. Chronic kidney disease 8. Arrhythmias with frequent PVCs and bigeminy's Recommendations: Continue with aspirin. And Plavix. Importance of compliant with medication emp hasized to the patient Continue with the paresh increase as needed/tolerated Continue with statin. Diabetic control as per internal medicine Follow-up renal function Thank you for his referral. We will continue to follow along with you SANTIAGO RENTERIA MD [facility] SANTIAGO RENTERIA MD Apr 21, 2018 11:01
--- NOTE | 2018-04-21 12:30 | RADRPT ---
Echocardiogram Report Patient Name: NICOLE SHAHPatient ID: [id number] : 1960 (58y )Study Date: 04/21/2018 9:40:27 AM Gender: MAccession #: [id number] Tech: Danny Gurdeep [facility] Location[facility] Ref.Physician: EMILY CASTILLO Height(Cm): BSA: Weight(Kg): Quality: AdequateAccount #: Procedures: Echocardiographic Report: Transthoracic echocardiogram with complete 2D, M-Mode, and doppler examination. Indications: New Onset Atrial Fibrillation. Measurements: 2D/M Mode Doppler Measurement Value Normal Range Measurement Value Normal Range LVIDd 2D 4.3 [ 4.2 - 5.8 ] cm AV Peak Evangelista 1.9 [ 100.0 - 170.0 ] cm/sec LVIDs 2D 2.7 [ 2.5 - 4.0 ] cm AV Peak PG 15.0 [ 2.0 - 9.0 ] mmHg LVPWd 2D 1.4 [ 0.6 - 1.0 ] cm LVOT Peak Evangelista 0.6 [ 70.0 - 110.0 ] cm/sec IVSd 2D 1.4 [ 0.6 - 1.0 ] cm LVOT Peak PG 2.0 [ 2.0 - 6.0 ] mmHg AoR Diam 2D 2.8 [ 2.6 - 3.4 ] cm MV E Peak Evangelista 0.9 [ 60.0 - 130.0 ] cm/sec EDV 2D 80.8 [ 62.0 - 150.0 ] ml MV A Peak Evangelista 1.0 [ 100.0 - 120.0 ] cm/sec ESV 2D 26.8 [ 21.0 - 61.0 ] ml MV E/A 0.8 [ 0.8 - 1.5 ] ratio EF 2D 66.8 [ 52.0 - 72.0 ] percent MV Decel Time 169 [ 104 - 258 ] msec LA Dimen 2D 3.4 [ 3.0 - 4.0 ] cm Lat E` Evangelista 0.1 [ 10.0 - 15.0 ] cm/sec Lateral E/E` 13.4 [ 1.0 - 2.0 ] ratio Med E` Evangelista 0.0 cm/sec MV E/A 0.8 [ 0.8 - 1.5 ] ratio TR Peak Evangelista 2.2 [ 100.0 - 280.0 ] cm/sec TR Peak PG 19.0 mmHg RVSP 29.0 [ 10.0 - 36.0 ] mmHg Findings: Left Ventricle: Normal left ventricular systolic function. Normal left ventricular cavity size. Moderate concentric left ventricular hypertrophy. Ejection fraction is visually estimated at 60 %. Tissue Doppler/Mitral Doppler indices are consistent with impaired relaxation (Stage I diastolic dysfunction). Right Ventricle: Normal right ventricular size. Normal right ventricular systolic function. Left Atrium: The left atrium is normal in size. Right Atrium: The right atrium is normal in size. Mitral Valve: Mild mitral leaflet calcification. Mild mitral annular calcification. Trace mitral regurgitation. Aortic Valve: No significant aortic stenosis or insufficiency. Left coronary cusp appears moderately calcified. Right coronary cusp appears moderately calcified. Tricuspid Valve: Normal appearance of the tricuspid valve. Estimated peak PA systolic pressure 29 mmHg. There is mild tricuspid regurgitation. Pulmonic Valve: Normal pulmonic valve appearance. Pericardium: Normal pericardium with no significant pericardial effusion. Aorta: Normal aortic root. IVC: Normal size and normal respiratory collapse consistent with normal right atrial pressure. Conclusions: Normal left ventricular systolic function. Normal left ventricular cavity size. Moderate concentric left ventricular hypertrophy. Ejection fraction is visually estimated at 60 %. Tissue Doppler/Mitral Doppler indices are consistent with impaired relaxation (Stage I diastolic dysfunction). Mild mitral leaflet calcification. Mild mitral annular calcification. Trace mitral regurgitation. No significant aortic stenosis or insufficiency. Left coronary cusp appears moderately calcified. Right coronary cusp appears moderately calcified. Normal appearance of the tricuspid valve. Estimated peak PA systolic pressure 29 mmHg. There is mild tricuspid regurgitation. Electronically Signed By: Edi Lozano 2018-04-21 12:29:46 PST
--- NOTE | 2018-04-21 17:30 | PN ---
Date/Time of Note Date/Time of Note DATE: 04/21/18 TIME: 17:29 Assessment/Plan VTE Prophylaxis Risk score (from Ns)>0 risk: 3 SCD applied (from Ns): Yes Pharmacological prophylaxis: NA/contraindicated Pharm contraindication: low risk/ambulating Lines/Catheters [facility]from [facility] Peripheral IV Urinary Cath still in place: No Assessment/Plan Assessment/Plan 58 yo man with IDDM presents with chest pain; found to have NSTEMI # NSTEMI: - trop 0.08 -> 1.8 - Now s/p cardiac cath on 04/20, had 90% mid RCA lesion got PCI. - Aspirin, plavix - Dr. Lozano following #Atrial fibrillation #Frequent PVC with bigeminy and trigeminy - Converted out of A fib on arrival with cardizem bolus. - Dr. Lozano following. # diabetes mellitus: - Resume home basal insulin, insulin sliding scale, hold home oral medications, diabetic diet # Nonoliguric chronic kidney disease: - Patient's creatinine is 1.8 which is improved from previous. - Will avoid nephrotoxic agents. - Avoid NSAIDs. - Renally dose medications. - Dr. Tripp consulted. # hypertension: Monitor blood pressure, currently not on any antihypertensives # hyperlipidemia: Continue statin, resume niacin and fenofibrate as clinically indicated # DVT GI prophylaxis: Heparin, no GI prophylaxis indicated Dispo: Anticipate discharge tomorrow. Result Diagram: 04/21/18 0646 04/21/18 0646 Subjective 24 Hr Interval Summary Free Text/Dictation Patient doing well. Ambulating, tolerating diet. No chest pain. Still with occasional trigeminy on telemetry. Exam/Review of Systems Exam Vitals Vital Signs Date Temp Pulse Resp B/P (MAP) Pulse Ox O2 O2 Flow FiO2 Time Delivery Rate 04/21/18 87 16:43 04/21/18 97.5 16 109/74 95 16:05 (86) 04/21/18 Room Air 04:00 04/19/18 2.0 23:50 Intake and Output 04/20/18 04/20/18 04/21/18 1515:00 23:00 07:00 IntakeIntake Total 180 ml 1750 ml 850 ml OutputOutput Total 800 ml 400 ml BalanceBalance 180 ml 950 ml 450 ml Exam General: Is currently sitting in bed in no acute distress HEENT: Atraumatic, normocephalic. The pupils are equal, round and reactive. Extraocular motor are intact Neck: Supple with full range of motion. No rigidity or meningismus Chest: Nontender to palpation Lungs: Clear to auscultation bilaterally no crackles rales or wheezing Heart:: Irregular with three beats followed by pause. No murmurs. Abdomen: Obese, soft , nontender, nondistended , bowel sounds are present. No guarding no rebound tenderness , No masses or organomegaly. No costovertebral temporal angle mass Extremities: R groin arterial puncture site intact with no hematoma or bleeding. Groin: R scrotum has large, raised, fleshy plaques with rolled borders. Says it has been there since age 19. Results Results 24hrs Laboratory Tests Test 04/20/18 19:29 04/21/18 02:23 04/21/18 06:46 04/21/18 08:51 Bedside Glucose 195 156 160 White Blood Count 8.6 Red Blood Count 4.41 L Hemoglobin 12.7 L Hematocrit 39.9 L Mean Corpuscular Volume 90.5 Mean Corpuscular 28.8 L Hemoglobin Mean Corpuscular 31.8 L Hemoglobin Concent Red Cell Distribution 14.8 H Width Platelet Count 251 Mean Platelet Volume 10.5 H Immature Granulocytes % 0.600 H Neutrophils % 69.7 Lymphocytes % 14.2 L Monocytes % 9.9 Eosinophils % 4.9 Basophils % 0.7 Nucleated Red Blood 0.0 Cells % Immature Granulocytes # 0.050 H Neutrophils # 6.0 Lymphocytes # 1.2 Monocytes # 0.9 Eosinophils # 0.4 Basophils # 0.1 Nucleated Red Blood 0.0 Cells # Sodium Level 139 Potassium Level 4.1 Chloride Level 104 Carbon Dioxide Level 26 Anion Gap 9 Blood Urea Nitrogen 24 H Creatinine 1.86 H Est Glomerular Filtrat 38 L Rate mL/min Glucose Level 178 Calcium Level 8.9 Phosphorus Level 3.4 Magnesium Level 2.3 Total Bilirubin 0.1 L Direct Bilirubin 0.00 Indirect Bilirubin 0.1 Aspartate Amino 49 H Transf (AST/SGOT) Alanine 32 Aminotransferase (ALT/SG PT) Alkaline Phosphatase 65 Creatine Kinase 249 H Creatine Kinase Index 5.5 Creatinine Kinase MB 13.70 H (Mass) Troponin I 3.710 *H B-Type Natriuretic 346 H Peptide Total Protein 6.9 Albumin 3.7 Globulin 3.20 Albumin/Globulin Ratio 1.15 Thyroid Stimulating 2.930 Hormone (TSH) Free Thyroxine 0.89 Test 04/21/18 11:57 Bedside Glucose 203 Medications Medication Current Medications IV Flush (NS 3 ml) 3 ml PER PROTOCOL IV ; Start 04/19/18 at 20:30 Ondansetron HCl (Zofran Inj) 4 mg Q6H PRN IV NAUSEA/VOMITING Last administered on 04/20/18at 12:12; Admin Dose 4 MG; Start 04/19/18 at 20:30 Aspirin (Aspirin) 81 mg DAILY PO Last administered on 04/21/18 08:53; Admin Dose 81 MG; Start 04/20/18 at 09:00 Nitroglycerin (Nitroglycerin (Sl Tab) 0.4 Mg) 1 tab Q5M PRN SL .CHEST PAIN; Start 04/19/18 at 20:30 Fish Oil (Fish Oil) 2,000 mg BID PO Last administered on 04/21/18at 08:52; Admin Dose 2,000 MG; Start 04/20/18 at 09:00 Insulin Glargine (Lantus) 30 units HS SC Last administered on 04/20/18at 20:15; Admin Dose 30 UNITS; Start 04/20/18 at 01:00 Diagnostic Test (Pha) (Accu-Chek) 1 ea 02 XX Last administered on 04/21/18at 02:24; Admin Dose 1 EA; Start 04/20/18 at 02:00 Insulin Aspart (Novolog Insulin Pen) NOVOLOG *MILD* ALGORITHM WITH MEALS BEDTIME SC Last administered on 04/21/18at 12:06; Admin Dose 2 UNIT; Start 04/20/18 at 08:00 Miscellaneous Information 1 ea NOTE XX ; Start 04/19/18 at 23:30 Glucose (Glutose) 15 gm Q15M PRN PO DECREASED GLUCOSE; Start 04/19/18 at 23:30 Glucose (Glutose) 22.5 gm Q15M PRN PO DECREASED GLUCOSE; Start 04/19/18 at 23:30 Dextrose (D50w Syringe) 25 ml Q15M PRN IV DECREASED GLUCOSE; Start 04/19/18 at 23:30 Dextrose (D50w Syringe) 50 ml Q15M PRN IV DECREASED GLUCOSE; Start 04/19/18 at 23:30 Glucagon (Glucagen) 1 mg Q15M PRN IM DECREASED GLUCOSE; Start 04/19/18 at 23:30 Glucose (Glutose) 15 gm Q15M PRN BUCCAL DECREASED GLUCOSE; Start 04/19/18 at 23:30 Clopidogrel Bisulfate (plaVIX) 75 mg DAILY PO Last administered on 04/21/18at 08:52; Admin Dose 75 MG; Start 04/21/18 at 09:00 Acetaminophen (Tylenol Tab) 650 mg Q4H PRN PO PAIN; Start 04/20/18 at 11:30 Oxycodone/ Acetaminophen (Percocet (5/ 325)) 1 tab Q4H PRN PO PAIN 1-10; Start 04/20/18 at 11:30 Oxycodone/ Acetaminophen (Percocet (5/ 325)) 2 tab Q4H PRN PO PAIN 6-10; Start 04/20/18 at 11:30 Morphine Sulfate (morphine) 1 mg Q1H PRN IV PAIN Last administered on 04/20/18at 12:11; Admin Dose 1 MG; Start 04/20/18 at 11:30 Atorvastatin Calcium (Lipitor) 80 mg DAILY@21 PO Last administered on 04/20/18at 20:07; Admin Dose 80 MG; Start 04/20/18 at 21:00 Metoprolol Succinate (Toprol Xl) 25 mg DAILY PO Last administered on 04/21/18at 08:53; Admin Dose 25 MG; Start 04/21/18 at 09:00 Clopidogrel Bisulfate (plaVIX) 75 mg DAILY PO ; Start 04/22/18 at 09:00 ANNEMARIE HENRY MD Apr 21, 2018 17:30
[2018-04-21] MEDS: ATORVASTATIN 80 MG TAB PO SCH (20:09)
[2018-04-21] MEDS: INSULIN GLARGINE [LANTus] (100 UNITS/ML) SYG SC SCH (20:14)
[2018-04-22] VITALS (7 sets, daily range): BP systolic 111–126; BP diastolic 55–71; PULSE 67–87; RESP 18–20
[2018-04-22] MEDS: ACCU-CHEK XX SCH (02:00)
--- NOTE | 2018-04-22 08:26 | CONS ---
Consult Date/Type/Reason Admit Date/Time Apr 19, 2018 at 20:24 Initial Consult Date 04/20/18 Type of Consultation: CV Requesting Provider: EMILY CASTILLO Date/Time of Note DATE: 04/22/18 TIME: 08:24 Subjective Interventional cardiology follow-up progress note Subjective: Case discussed with the staff telemetry was reviewed patient with less frequent PVC Patient with no chest pain or pressure no palpitation no more episode of atrial fibrillation With no groin pain or bleeding Patient said he was able to walk and wants to go home. His prescription for aspirin Plavix and Lipitor has already been filled. Objective: General: no acute distress HEENT: NC/AT. pupils are equal. round. NECK: NO JVD. no stridor. CV: RRR. systolic murmur; no gallop or rubs. PULM: no wheezing or rhonchi. GI: SOFT, NT, ND, no rebound or guarding Extremity: trace B/L LE edema. no clubbing. neuro: awake and alert, OX3. Psych: calm and pleasant rectal: deferred : normal Vascular: Right femoral no bleeding or hematoma Echocardiogram was personally reviewed which shows: Normal left ventricular systolic function. Normal left ventricular cavity size. Moderate concentric left ventricular hypertrophy. Ejection fraction is visually estimated at 60 %. Tissue Doppler/Mitral Doppler indices are consistent with impaired relaxation (Stage I diastolic dysfunction). Mild mitral leaflet calcification. Mild mitral annular calcification. Trace mitral regurgitation. No significant aortic stenosis or insufficiency. Left coronary cusp appears moderately calcified. Right coronary cusp appears moderately calcified. Normal appearance of the tricuspid valve. Estimated peak PA systolic pressure 29 mmHg. There is mild tricuspid regurgitation. Objective Vitals Vital Signs Date Temp Pulse Resp B/P (MAP) Pulse Ox O2 O2 Flow FiO2 Time Delivery Rate 04/22/18 98.2 78 18 126/64 97 Room Air 07:31 (84) 04/19/18 2.0 23:50 Intake and Output 04/21/18 04/21/18 04/22/18 1515:00 23:00 07:00 IntakeIntake Total 950 ml 450 ml BalanceBalance 950 ml 450 ml Results/Medications Result Diagram: 04/22/18 0606 04/22/18 0606 Results 24 hrs Laboratory Tests Test 04/21/18 08:51 04/21/18 11:57 04/21/18 18:02 04/21/18 20:08 Bedside Glucose 160 203 187 176 Test 04/22/18 06:06 White Blood Count 6.9 Red Blood Count 4.40 L Hemoglobin 12.7 L Hematocrit 40.1 L Mean Corpuscular Volume 91.1 Mean Corpuscular 28.9 L Hemoglobin Mean Corpuscular 31.7 L Hemoglobin Concent Red Cell Distribution 14.6 H Width Platelet Count 223 Mean Platelet Volume 10.5 H Immature Granulocytes % 0.600 H Neutrophils % 57.7 Lymphocytes % 22.8 Monocytes % 11.8 H Eosinophils % 6.5 Basophils % 0.6 Nucleated Red Blood 0.0 Cells % Immature Granulocytes # 0.040 H Neutrophils # 4.0 Lymphocytes # 1.6 Monocytes # 0.8 Eosinophils # 0.5 Basophils # 0.0 Nucleated Red Blood 0.0 Cells # Sodium Level 141 Potassium Level 3.9 Chloride Level 102 Carbon Dioxide Level 27 Anion Gap 12 Blood Urea Nitrogen 26 H Creatinine 2.01 H Est Glomerular Filtrat 34 L Rate mL/min Glucose Level 136 # Calcium Level 9.2 Phosphorus Level 3.6 Magnesium Level 1.8 Home Meds Active Scripts Ondansetron (Ondansetron Odt) 4 Mg Tab.rapdis, 4 MG PO Q6H PRN for NAUSEA AND/OR VOMITING, #10 TAB Prov:SAEED ROMANO MD 02/16/18 Hydrocodone/Acetaminophen ([place] 5-325 Tablet) 1 Each Tablet, 1 TAB PO Q6H PRN for PAIN, #7 TAB Prov:SAEED ROMANO MD 02/16/18 Nitrofurantoin Monohyd Macrocr* (Macrobid*) 100 Mg Capsr, 100 MG PO BID for 7 Days, CAP Prov:SAEED ROMANO MD 02/16/18 Reported Medications Aspirin (Low Dose Aspirin) 81 Mg Tablet.dr, 81 MG PO DAILY, #30 TAB 12/27/17 Niacin* (Niacin* ER) 1,000 Mg Tablet.sa, 1500 MG PO QHS, #30 TAB 12/27/17 Atorvastatin* (Atorvastatin*) 40 Mg Tablet, 40 MG PO QHS, #30 TAB 12/27/17 Insulin Glargine,Hum.rec.anlog ([place] Solchristophe) 300 Unit/1 Ml Insuln.pen, 30 UNIT SQ QHS, EA 12/27/17 [place]-3 Acid Ethyl Esters (Lovaza) 1 Gm Capsule, 2 GM PO BID, CAP 12/27/17 Linagliptin (TRADJENTA) 5 Mg Tablet, 5 MG PO DAILY, TAB 12/27/17 Fenofibrate, Micronized* (Fenofibrate*) 160 Mg Tablet, 160 MG PO DAILY, TAB 12/27/17 Glimepiride* (Glimepiride*) 4 Mg Tablet, 4 MG PO WITH BREAKFAST DINNE, TAB 12/27/17 Medications Current Medications IV Flush (NS 3 ml) 3 ml PER PROTOCOL IV ; Start 04/19/18 at 20:30 Ondansetron HCl (Zofran Inj) 4 mg Q6H PRN IV NAUSEA/VOMITING Last administered on 04/20/18at 12:12; Admin Dose 4 MG; Start 04/19/18 at 20:30 Aspirin (Aspirin) 81 mg DAILY PO Last administered on 04/21/18 08:53; Admin Dose 81 MG; Start 04/20/18 at 09:00 Nitroglycerin (Nitroglycerin (Sl Tab) 0.4 Mg) 1 tab Q5M PRN SL .CHEST PAIN; Start 04/19/18 at 20:30 Fish Oil (Fish Oil) 2,000 mg BID PO Last administered on 04/21/18at 20:10; Admin Dose 2,000 MG; Start 04/20/18 at 09:00 Insulin Glargine (Lantus) 30 units HS SC Last administered on 04/21/18 20:14; Admin Dose 30 UNITS; Start 04/20/18 at 01:00 Diagnostic Test (Pha) (Accu-Chek) 1 ea 02 XX Last administered on 04/21/18at 02:24; Admin Dose 1 EA; Start 04/20/18 at 02:00 Insulin Aspart (Novolog Insulin Pen) NOVOLOG *MILD* ALGORITHM WITH MEALS BEDTIME SC Last administered on 04/21/18 18:06; Admin Dose 2 UNIT; Start 04/20/18 at 08:00 Miscellaneous Information 1 ea NOTE XX ; Start 04/19/18 at 23:30 Glucose (Glutose) 15 gm Q15M PRN PO DECREASED GLUCOSE; Start 04/19/18 at 23:30 Glucose (Glutose) 22.5 gm Q15M PRN PO DECREASED GLUCOSE; Start 04/19/18 at 23:30 Dextrose (D50w Syringe) 25 ml Q15M PRN IV DECREASED GLUCOSE; Start 04/19/18 at 23:30 Dextrose (D50w Syringe) 50 ml Q15M PRN IV DECREASED GLUCOSE; Start 04/19/18 at 23:30 Glucagon (Glucagen) 1 mg Q15M PRN IM DECREASED GLUCOSE; Start 04/19/18 at 23:30 Glucose (Glutose) 15 gm Q15M PRN BUCCAL DECREASED GLUCOSE; Start 04/19/18 at 23:30 Clopidogrel Bisulfate (plaVIX) 75 mg DAILY PO Last administered on 04/21/18at 08:52; Admin Dose 75 MG; Start 04/21/18 at 09:00 Acetaminophen (Tylenol Tab) 650 mg Q4H PRN PO PAIN; Start 04/20/18 at 11:30 Oxycodone/ Acetaminophen (Percocet (5/ 325)) 1 tab Q4H PRN PO PAIN 1-5/10; Start 04/20/18 at 11:30 Oxycodone/ Acetaminophen (Percocet (5/ 325)) 2 tab Q4H PRN PO PAIN 6-10/10; Start 04/20/18 at 11:30 Morphine Sulfate (morphine) 1 mg Q1H PRN IV PAIN Last administered on 04/20/18at 12:11; Admin Dose 1 MG; Start 04/20/18 at 11:30 Atorvastatin Calcium (Lipitor) 80 mg DAILY@21 PO Last administered on 04/21/18at 20:09; Admin Dose 80 MG; Start 04/20/18 at 21:00 Metoprolol Succinate (Toprol Xl) 25 mg DAILY PO Last administered on 04/21/18at 08:53; Admin Dose 25 MG; Start 04/21/18 at 09:00 Clopidogrel Bisulfate (plaVIX) 75 mg DAILY PO ; Start 04/22/18 at 09:00 Assessment/Plan Hospital Course (Demo Recall) 1. Non-ST elevation myocardial infarction: There is post PCI right coronary artery 2. P-Atrial fibrillation rapid ventricular response: Now has converted back to sinus and has remained in normal sinus rhythm since PCI done 3. Diabetes 4. Hypertension 5. Dyslipidemia 6. Obesity rule out obstructive sleep apnea 7. Chronic kidney disease 8. Arrhythmias with frequent PVCs and bigeminy's Recommendations: Continue with aspirin. And Plavix. Importance of compliant with medication emphasized to the patient Continue with the paresh increase as needed/tolerated Continue with statin. Diabetic control as per internal medicine Follow-up renal recommendations Okay to discharge from cardiac standpoint. Patient to follow-up with me within 1-2 weeks. Patient was advised to bring all of his medication for review at the time of the follow-up Thank you for his referral. We will continue to follow along with you SANTIAGO RENTERIA MD [facility] SANTIAGO RENTERIA MD Apr 22, 2018 08:26
--- NOTE | 2018-04-22 08:45 | RADRPT ---
Vent Rate: 77 bpm RR Interval: 0 msec CO Interval: 156 msec QRS Duration: 98 msec QT Interval: 396 msec QTC Interval: 448 msec P-R-T [place]: 21 - 51 - 109 degrees Sinus rhythm with occasional premature ventricular complexes Nonspecific T wave abnormality Abnormal ECG Electronically Signed By: Edi Lozano
[2018-04-22] MEDS ORDERED: CLOPIDOGREL 75 MG TAB PO SCH (09:00)
[2018-04-22] MEDS: INSULIN ASPART [NOVOLOG] 3 ML PEN SC SCH ×2 (09:05→11:58)
--- NOTE | 2018-04-22 09:44 | PN ---
DATE: 04/22/2018 SUBJECTIVE: The patient is stable, no events overnight. No fevers, chills, nausea, or vomiting. OBJECTIVE: VITAL SIGNS: Blood pressure is 126/64, pulse 78, respirations 18, temperature 98.2. HEENT: Normocephalic. NECK: Supple. HEART: Regular rate. LUNGS: Show diminished breath sounds at the base. ABDOMEN: Soft, nontender to palpation without rebound or guarding. EXTREMITIES: Negative for clubbing, cyanosis, no edema. DERMATOLOGIC: No rashes. MUSCULOSKELETAL: No joint effusion. NEUROLOGIC: No change in exam. MEDICATIONS: The patient's medications have been reviewed. LABORATORY DATA: Showed sodium 141, BUN 26, creatinine 2.01. White count 6.9, hemoglobin 12.7, plat elet count is 223. ASSESSMENT AND PLAN: 1. Chronic kidney disease stage IIIb with previous baseline creatinine of 2.0 mg/dL. The patient's renal function is currently at baseline. No signs of contrast-associated nephropathy. Continue curr ent treatment plans, supportive care, renally dose all medicines. 2. Anemia. Continue to monitor hemoglobin and hematocrit levels. 3. Mineral bone disorder, monitor calcium and phosphorus levels. 4. Hypertension. Continue current blood pressure regimen. Okay to resume KANA inhibitor or ARB. 5. Non-ST elevation myocardial infarction. The patient is status post cardiac catheterization with percutaneous coronary intervention to right coronary artery disease. Continue current treatment plan . 6. Atrial fibrillation. Continue medical management. 7. Diabetes. Continue current insulin regimen. 8. Dyslipidemia. Continue statin therapy. Dictated By: DEVORA KUMARI DO NR/NTS Conf#: [id number] DID#: [id number] CC: SANTIAGO RENTERIA MD; ANNEMARIE HENRY MD; EMILY CASTILLO MD;*EndCC*
[2018-04-22] MEDS: FISH OIL 1,000 MG CAP PO SCH (10:13)
[2018-04-22] MEDS: CLOPIDOGREL 75 MG TAB PO SCH (10:13)
[2018-04-22] MEDS: ASPIRIN 81 MG TAB PO SCH (10:14)
[2018-04-22] MEDS: METOPROLOL (XL) 25 MG TAB PO SCH (10:14)
[2018-04-22] MEDS ORDERED: METO-335 PO (10:40)
[2018-04-22] MEDS ORDERED: CLOP75TA28 PO (10:40)
[2018-04-22] MEDS ORDERED: ATOR-2 PO (10:40)
--- NOTE | 2018-04-22 10:42 | PDOCDIS ---
Discharge Instructions DIAGNOSIS Discharge Diagnosis NSTEMI CONDITION [id number] Patient Condition: Aysnd1g Good HOME CARE INSTRUCTIONS: [id number] Special Diet: Dandn3a Diabetic (carbohydrate-controlled) diet ACTIVITY: [id number] Activity Restrictions: [id number] Slowly Increase Activity FOLLOW UP/APPOINTMENTS Follow-up Plan 1. Continue to take all medications as prescribed. 2. Take aspirin and clopidogrel daily for at least one year. 3. See Dr. Lozano in clinic as scheduled 4. If you develop pressure-like chest pain that does not resolve with rest; return to the emergency room. ANNEMARIE HENRY MD Apr 22, 2018 10:42
--- NOTE | 2018-04-22 15:12 | DS ---
Date/Time of Note Date/Time of Note DATE: 04/22/18 TIME: 15:09 Discharge Summary Admission/Discharge Info Admit Date/Time Apr 19, 2018 at 20:24 Discharge Date/Time Apr 22, 2018 at 14:59 Discharge Diagnosis NSTEMI Patient Condition: Good Consults Dr. Lozano, cardiology Procedures 04/20/18: Successful PTCA stenting of the mid right coronary artery from 90% stenosis to no significant residual stenosis using a 2.5 x 20 mm Synergy drug- eluting stent. Hx of Present Illness Chief complaint: Chest pain substernal The patient is a 58-year-old male who presented to the ER from his long-term via EMS because of substernal chest pain that began about 30 minutes ago while he was watching TV, the pain is 10/10. The pain was nonradiating. He did not have any shortness of breath. He was treated with 2 sprays of nitroglycerin and 162 mg of aspirin in the ambulance. When he arrived in the emergency department he was noted to be in rapid A. fib with RVR. He was given approximately 4 doses of 10 mg of Cardizem which did result in improvement of the heart rate. Patient is currently irregularly irregular rate controlled. He reports resolution of his chest pain. Allergies: NKDA Medications: See APR, his atenolol was recently discontinued. Hospital Course On telemetry, he did go back into normal sinus but had frequent ectopy; including bigeminy and trigeminy. Dr. Lozano evaluated him and decided to take him to lab tech. He had 90% stenosis of the mid RCA and got stented. Postoperatively chest pain resolved; although he did continue to have bigeminy and trigeminy on telemetry; asymptomatic. He will be discharged on aspirin and plavix as well as metoprolol. Home Meds Active Scripts Metoprolol Succinate* (Toprol XL*) 25 Mg Tab.sr.24h, 25 MG PO DAILY, #60 TAB Prov:ANNEMARIE HENRY MD 04/22/18 Atorvastatin* (Atorvastatin*) 80 Mg Tablet, 80 MG PO DAILY@21, #60 TAB Prov:ANNEMARIE HENRY MD 04/22/18 Clopidogrel Bisulfate (Clopidogrel) 75 Mg Tablet, 75 MG PO DAILY, #60 TAB Prov:ANNEMARIE HENRY MD 04/22/18 Ondansetron (Ondansetron Odt) 4 Mg Tab.rapdis, 4 MG PO Q6H PRN for NAUSEA AND/OR VOMITING, #10 TAB Prov:SAEED ROMANO MD 02/16/18 Hydrocodone/Acetaminophen ([place] 5-325 Tablet) 1 Each Tablet, 1 TAB PO Q6H PRN for PAIN, #7 TAB Prov:SAEED ROMANO MD 02/16/18 Reported Medications Aspirin (Low Dose Aspirin) 81 Mg Tablet.dr, 81 MG PO DAILY, #30 TAB 12/27/17 Niacin* (Niacin* ER) 1,000 Mg Tablet.sa, 1500 MG PO QHS, #30 TAB 12/27/17 Insulin Glargine,Hum.rec.anlog ([place] Solostar) 300 Unit/1 Ml Insuln.pen, 30 UNIT SQ QHS, EA 12/27/17 [place]-3 Acid Ethyl Esters (Lovaza) 1 Gm Capsule, 2 GM PO BID, CAP 12/27/17 Linagliptin (TRADJENTA) 5 Mg Tablet, 5 MG PO DAILY, TAB 12/27/17 Fenofibrate, Micronized* (Fenofibrate*) 160 Mg Tablet, 160 MG PO DAILY, TAB 12/27/17 Glimepiride* (Glimepiride*) 4 Mg Tablet, 4 MG PO WITH BREAKFAST DINNE, TAB 12/27/17 Discontinued Reported Medications Atorvastatin* (Atorvastatin*) 40 Mg Tablet, 40 MG PO QHS, #30 TAB 12/27/17 Discontinued Scripts Nitrofurantoin Monohyd Macrocr* (Macrobid*) 100 Mg Capsr, 100 MG PO BID for 7 Days, CAP Prov:SAEED ROMANO MD 02/16/18 Follow-up Plan 1. Continue to take all medications as prescribed. 2. Take aspirin and clopidogrel daily for at least one year. 3. See Dr. Lozano in clinic as scheduled 4. If you develop pressure-like chest pain that does not resolve with rest; return to the emergency room. Primary Care Provider Not On Staff Doctor Time spent on discharge: > 30 minutes Pending Labs Laboratory Tests Test 04/21/18 18:02 04/21/18 20:08 04/22/18 06:06 04/22/18 08:09 Bedside 187 176 156 Glucose mg/dL (70-220) mg/dL (70-220) mg/dL (70-220) White Blood 6.9 Count 10^3/ul (4.8-1 0.8) Red Blood 4.40 Count 10^6/ul (4.70- 6.10) Hemoglobin 12.7 g/dl (14.0-18. 0) Hematocrit 40.1 % (42.0-52.0) Mean 91.1 Corpuscular fl (82.0-101.0 Volume ) Mean 28.9 Corpuscular pg (29.0-33.0) Hemoglobin Mean 31.7 Corpuscular g/dl (32.0-37. Hemoglobin Conc 0) ent Red Cell 14.6 Distribution % (11.5-14.5) Width Platelet Count 223 10^3/UL (140-4 15) Mean Platelet 10.5 Volume fl (7.4-10.4) Immature 0.600 Granulocytes % % (0.001-0.429 ) Neutrophils % 57.7 % (39.0-77.0) Lymphocytes % 22.8 % (15.0-51.0) Monocytes % 11.8 % (0.0-11.0) Eosinophils % 6.5 % (0.0-7.0) Basophils % 0.6 % (0.0-2.0) Nucleated Red 0.0 Blood Cells % /100WBC (0.0-0 .0) Immature 0.040 Granulocytes # 10^3/ul (0.0-0 .031) Neutrophils # 4.0 10^3/ul (1.6-7 .5) Lymphocytes # 1.6 10^3/ul (0.8-2 .9) Monocytes # 0.8 10^3/ul (0.3-0 .9) Eosinophils # 0.5 10^3/ul (0.0-0 .5) Basophils # 0.0 10^3/ul (0.0-0 .1) Nucleated Red 0.0 Blood Cells # 10^3/ul (0.0-0 .0) Sodium Level 141 mmol/L (135-14 4) Potassium 3.9 Level mmol/L (3.5-5. 1) Chloride Level 102 mmol/L (97-110 ) Carbon Dioxide 27 Level mmol/L (21-31) Anion Gap 12 (5-13) Blood Urea 26 Nitrogen mg/dl (7-20) Creatinine 2.01 mg/dl (0.61-1. 24) Est Glomerular 34 Filtrat mL/min (>60) Rate mL/min Glucose Level 136 mg/dl (70-220) Calcium Level 9.2 mg/dl (8.4-10. 2) Phosphorus 3.6 Level mg/dl (2.5-4.9 ) Magnesium 1.8 Level mg/dl (1.7-2.5 ) Test 04/22/18 11:55 Bedside 184 Glucose mg/dL (70-220) ANNEMARIE HENRY MD Apr 22, 2018 15:12
--- NOTE | 2018-04-23 14:17 | RADRPT ---
Vent Rate: 111 bpm RR Interval: 0 msec [place] Interval: 0 msec QRS Duration: 100 msec QT Interval: 342 msec QTC Interval: 465 msec P-R-T [place]: 0 - 51 - -39 degrees NSR with frequent PVC T wave abnormality, consider inferior ischemia Abnormal ECG Electronically Signed By: Edi Lozano
== END 2018-04-22 14:59 | disposition home or self-care (01) | DRG 247 ==
LOC: E/R 18:39 → TEL 20:24
PROVIDERS: ADMIT Family Medicine; ATTEND Internal Medicine
PROC: B211YZZ Fluoroscopy of Multiple Coronary Arteries using Other Contrast (ICD-10-PCS; 2018-04-20)
PROC: B215YZZ Fluoroscopy of Left Heart using Other Contrast (ICD-10-PCS; 2018-04-20)
PROC: 027034Z Dilation of Coronary Artery, One Artery with Drug-eluting Intraluminal Device, Percutaneous Approach (ICD-10-PCS; principal; 2018-04-20 10:00)
PROC: 4A023N7 Measurement of Cardiac Sampling and Pressure, Left Heart, Percutaneous Approach (ICD-10-PCS; 2018-04-20 10:00)
DX: I21.4 Non-ST elevation (NSTEMI) myocardial infarction (principal); N17.9 Acute kidney failure, unspecified; I25.10 Atherosclerotic heart disease of native coronary artery without angina pectoris; E11.22 Type 2 diabetes mellitus with diabetic chronic kidney disease; I13.10 Hypertensive heart and chronic kidney disease without heart failure, with stage 1 through stage 4 chronic kidney disease, or unspecified chronic kidney disease; N18.3 Chronic kidney disease, stage 3 (moderate); E78.5 Hyperlipidemia, unspecified; E83.42 Hypomagnesemia; E66.9 Obesity, unspecified; D64.9 Anemia, unspecified; I48.0 Paroxysmal atrial fibrillation; I49.9 Cardiac arrhythmia, unspecified; Z90.5 Acquired absence of kidney; Z79.4 Long term (current) use of insulin; Z79.82 Long term (current) use of aspirin
CPT/HCPCS: 36415; 71045; 80048; 80053; 80061; 81001; 81003; 82043; 82550; 82553; 82962; 83036; 83735; 83880; 84100; 84155; 84300; 84439; 84443; 84484; 85025; 85610; 85730; 87086; 92928; 93005; 93306; 93458; 96374; 96376; C1725; C1760; C1874; C1887; C1894; J0583; J0690; J0696; J1644; J1815; J2250; J2270; J2405; J3010; J3475; J7030; Q9967

== ENCOUNTER 2018-07-05 18:15 | Inpatient (IN) | payer MEDICARE, BC ==
[~2018-07-05] VITALS: Ht 172.7 cm; Wt 99.3 kg
[~2018-07-05 18:15] MED LIST changes: +ATOR-2 PO; -ATOR40TA68 PO; +CLOP75TA28 PO; +METO-335 PO; -NITR-58 PO
--- NOTE | 2018-07-05 18:23 | ERD ---
ER Documentation Chief Complaint Chief Complaint not feeling well HPI The patient is a 58-year-old male, presenting to the ER because he does not feel well, he feels "strange". He denies similar symptoms previously, his friend called 911. When EMS arrived, Accu-Chek was 47, he was given an injection (?glucacon) and a glucose paste, he felt better. Upon arrival to the ER, Accu- Chek was 116. He is awake, alert, able to answer question appropriately. He was admitted to [facility] for hypoglycemia 3 days ago. He is currently taking Amaryl, insulin, linagliptin diabetes mellitus. He denies syncope, near syncope, neck pain, chest pain, dyspnea, abdominal pain, vomiting, dysuria, diarrhea. He does not smoke/drink/use illicit drugs, lives in a skilled nursing Past medical history: Diabetes mellitus, dyslipidemia, CAD, chronic kidney disease, paroxysmal atrial fibrillation Past surgical history: Stent PCI in April 2018, partial left nephrectomy ROS All systems reviewed and are negative except as per history of present illness. Medications Home Meds Reported Medications Atorvastatin* (Atorvastatin*) 80 Mg Tablet, 80 MG PO QHS, #30 TAB 07/05/18 Clopidogrel Bisulfate* (Clopidogrel Bisulfate*) 75 Mg Tablet, 75 MG PO DAILY, #30 TAB 07/05/18 Fenofibrate, Micronized* (Fenofibrate*) 160 Mg Tablet, 160 MG PO DAILY, TAB 07/05/18 Insulin Glargine,Hum.rec.anlog (Basaglar Kwikpen U-100) 100 Unit/1 Ml Insuln.pen, 80 UNIT SC QAM, EA 07/05/18 Icosapent Ethyl (VASCEPA) 1 Gm Capsule, 2 GM PO BID, CAP 07/05/18 Atenolol* (Atenolol*) 50 Mg Tablet, 50 MG PO DAILY, #30 TAB 07/05/18 Linagliptin (TRADJENTA) 5 Mg Tablet, 5 MG PO DAILY, TAB 07/05/18 Metoprolol Succinate* (Toprol XL*) 25 Mg Tab.sr.24h, 25 MG PO DAILY, #30 TAB 07/05/18 Fenofibrate (Triglide) 160 Mg Tablet, 160 MG PO DAILY, TAB 07/05/18 Glimepiride* (Glimepiride*) 4 Mg Tablet, 4 MG PO WITH BREAKFAST DINNE, TAB 07/05/18 Aspirin* (Aspirin* EC) 81 Mg Tablet.dr, 81 MG PO DAILY, TAB 07/05/18 Discontinued Reported Medications Aspirin (Low Dose Aspirin) 81 Mg Tablet.dr, 81 MG PO DAILY, #30 TAB 12/27/17 Niacin* (Niacin* ER) 1,000 Mg Tablet.sa, 1500 MG PO QHS, #30 TAB 12/27/17 Insulin Glargine,Hum.rec.anlog (Toujeo Solostar) 300 Unit/1 Ml Insuln.pen, 30 UNIT SQ QHS, EA 12/27/17 [place]-3 Acid Ethyl Esters (Lovaza) 1 Gm Capsule, 2 GM PO BID, CAP 12/27/17 Linagliptin (TRADJENTA) 5 Mg Tablet, 5 MG PO DAILY, TAB 12/27/17 Fenofibrate, Micronized* (Fenofibrate*) 160 Mg Tablet, 160 MG PO DAILY, TAB 12/27/17 Glimepiride* (Glimepiride*) 4 Mg Tablet, 4 MG PO WITH BREAKFAST DINNE, TAB 12/27/17 Discontinued Scripts Metoprolol Succinate* (Toprol XL*) 25 Mg Tab.sr.24h, 25 MG PO DAILY, #60 TAB Prov:ANNEMARIE HENRY MD 04/22/18 Atorvastatin* (Atorvastatin*) 80 Mg Tablet, 80 MG PO DAILY@21, #60 TAB Prov:ANNEMARIE HENRY MD 04/22/18 Clopidogrel Bisulfate (Clopidogrel) 75 Mg Tablet, 75 MG PO DAILY, #60 TAB Prov:ANNEMARIE HENRY MD 04/22/18 Ondansetron (Ondansetron Odt) 4 Mg Tab.rapdis, 4 MG PO Q6H PRN for NAUSEA AND/OR VOMITING, #10 TAB Prov:SAEED ROMANO MD 02/16/18 Hydrocodone/Acetaminophen ([place] 5-325 Tablet) 1 Each Tablet, 1 TAB PO Q6H PRN for PAIN, #7 TAB Prov:SAEED ROMANO MD 02/16/18 Allergies Allergies: Coded Allergies: No Known Allergy (Unverified , 07/05/18) PMhx/Soc History of Surgery: Yes Anesthesia Reaction: No Hx Neurological Disorder: No Hx Respiratory Disorders: No Hx Cardiac Disorders: Yes Hx Psychiatric Problems: No Hx Miscellaneous Medical Probl: No Hx Alcohol Use: No Hx Substance Use: No Hx Tobacco Use: No Physical Exam Vitals Vital Signs Date Temp Pulse Resp B/P (MAP) Pulse Ox O2 O2 Flow FiO2 Time Delivery Rate 07/05/18 98.9 60 16 110/60 98 18:21 (77) Physical Exam Const: No acute distress. Head: Atraumatic. Eyes: Normal Conjunctiva. ENT: Normal External Ears, Nose and Mouth. Neck: Full range of motion. No meningismus. Resp: Clear to auscultation bilaterally. Cardio: Regular rate and rhythm. Abd: Soft, non distended, normal bowel sounds, non tender. Skin: No petechiae or rashes. Back: No midline or flank tenderness. Ext: No cyanosis, or edema. Neur: Awake and alert. No focal deficit Psych: Normal Mood and Affect. Result Diagram: 07/05/18189907/05/181899 Results 24 hrs Laboratory Tests Test 07/05/18 18:37 07/05/18 19:00 Bedside Glucose 116 mg/dL White Blood Count 8.5 10^3/ul Red Blood Count 5.33 10^6/ul Hemoglobin 14.7 g/dl Hematocrit 46.4 % Mean Corpuscular Volume 87.1 fl Mean Corpuscular Hemoglobin 27.6 pg Mean Corpuscular Hemoglobin Concent 31.7 g/dl Red Cell Distribution Width 15.5 % Platelet Count 300 10^3/UL Mean Platelet Volume 10.3 fl Immature Granulocytes % 0.400 % Neutrophils % 72.6 % Lymphocytes % 14.6 % Monocytes % 7.6 % Eosinophils % 4.3 % Basophils % 0.5 % Nucleated Red Blood Cells % 0.0 /100WBC Immature Granulocytes # 0.030 10^3/ul Neutrophils # 6.2 10^3/ul Lymphocytes # 1.3 10^3/ul Monocytes # 0.7 10^3/ul Eosinophils # 0.4 10^3/ul Basophils # 0.0 10^3/ul Nucleated Red Blood Cells # 0.0 10^3/ul Sodium Level 144 mmol/L Potassium Level 4.2 mmol/L Chloride Level 103 mmol/L Carbon Dioxide Level 32 mmol/L Anion Gap 9 Blood Urea Nitrogen 29 mg/dl Creatinine 2.02 mg/dl Est Glomerular Filtrat Rate mL/min 34 mL/min Glucose Level 125 mg/dl Calcium Level 10.1 mg/dl Magnesium Level 1.5 mg/dl Troponin I 0.059 ng/ml Current Medications Medications Dose Sig/Julisa Start Time Status Last (Trade) Ordered Route PRN Stop Time Admin Dose Reason Admin Magnesium 800 mg ONCE ONCE 07/05/18 Oxide PO 20:00 (Mag-Ox 400) 07/05/18 20:01 Procedures/MDM EKG: Read by emergency physician Rate/Rhythm: Normal Sinus Rhythm 91 beats/min QRS, ST, T-waves: No ST elevation, no T inversion, PVC, trigeminy Impression: Abnormal EKG MEDICAL MAKING DECISION: The patient is a 58-year-old male, presenting with acute hypoglycemia, acute hypomagnesia, acute trigeminy. He was treated with magnesium oxide 80 mg p.o. for acute hypomagnesia, was given a meal to eat The differential diagnoses considered include but are not limited to medical noncompliance/dietary noncompliance, ACS, electrolyte imbalance, dehydration Departure Diagnosis: Primary Impression: Hypoglycemia Additional Impressions: Hypomagnesemia Trigeminy Condition: Stable Comments I discussed the findings with the patient. I discussed the patient with Dr Haley at 7:40p, who was made aware of the lab, the treatment, the patient condition. The patient is admitted to [facility] Disclaimer: Inadvertent spelling and grammatical errors are likely due to EHR/dictation software use and do not reflect on the overall quality of patient care. Also, please note that the electronic time recorded on this note does not necessarily reflect the actual time of the patient encounter. STELLA LUCERO MD July 05, 2018 18:23
[2018-07-05] MEDS ORDERED: ASPI-817 PO (19:25)
[2018-07-05] MEDS ORDERED: FENO160T10 PO (19:26)
[2018-07-05] MEDS ORDERED: GLIM4TAB PO (19:26)
[2018-07-05] MEDS ORDERED: METO-335 PO (19:26)
[2018-07-05] MEDS ORDERED: LINA5TAB PO (19:27)
[2018-07-05] MEDS ORDERED: ATEN50TA PO (19:27)
[2018-07-05] MEDS ORDERED: INSU100I33 SC (19:28)
[2018-07-05] MEDS ORDERED: FENO160T13 PO (19:28)
[2018-07-05] MEDS ORDERED: ICOS1CAP PO (19:28)
[2018-07-05] MEDS ORDERED: ATOR-2 PO (19:29)
[2018-07-05] MEDS ORDERED: CLOP75TA19 PO (19:29)
[2018-07-05] MEDS ORDERED: MAGNESIUM OXIDE 400 MG TAB PO ONE (20:00)
[2018-07-05 20:59] VITALS: PULSE 88
[2018-07-05 21:04] VITALS: BP 101/73; PULSE 61; RESP 20
[2018-07-05 21:10] VITALS: Ht 172.7 cm; Wt 99.3 kg
[2018-07-05] MEDS ORDERED: ONDANSETRON 4 MG INJ IV PRN (22:00)
[2018-07-05] MEDS ORDERED: ACETAMINOPHEN 325 MG TAB PO PRN (22:00)
[2018-07-05] MEDS ORDERED: ALBUTEROL/IPRATROPIUM (NEB) 3 ML AMP HHN PRN (22:00)
[2018-07-05] MEDS ORDERED: NACL 0.9% 3 ML SYG IV SCH (22:00)
--- NOTE | 2018-07-05 22:10 | HP ---
Date/Time of Note Date/Time of Note DATE: 07/05/18 TIME: 22:10 Assessment/Plan VTE Prophylaxis Pharmacological prophylaxis: heparin Lines/Catheters IV Catheter Type (from Nrsg): [place] Lock Urinary Cath still in place: No Assessment/Plan Assessment/Plan 1. Dizziness/generalized weakness: Most likely secondary to hypoglycemia -Currently stable. Will monitor -EKG does show frequent PVCs and trigeminy. Will monitor in the telemetry unit. Check electrolytes 2. Hypoglycemia: Secondary to sulfonylurea. Patient is also on linagliptin and a very high dose Lantus -He said hypoglycemia has been a recurring issue lately and recently had a blood glucose of 20 at [facility] -Currently stable -Hold sulfonylurea. We will also hold old diabetic medications. Glimepiride needs to be stopped upon discharge and Lantus dose needs adjustment. -See #1 3. CAD with stent to RCA (04/2018) -Continue cardiac meds including antiplatelet -Cardiology consult given frequent PVCs and trigeminy -Check electrolytes 4. Type 2 diabetes: See #2 5. CKD: Patient with a history of left kidney tumor status post removal -Monitor 6. Hypertension: BP within acceptable range Result Diagram: 07/05/18 1900 07/05/18 1900 Results 24hrs Laboratory Tests Test 07/05/18 18:37 07/05/18 19:00 Bedside Glucose 116 White Blood Count 8.5 # Red Blood Count 5.33 # Hemoglobin 14.7 Hematocrit 46.4 Mean Corpuscular Volume 87.1 Mean Corpuscular Hemoglobin 27.6 L Mean Corpuscular Hemoglobin Concent 31.7 L Red Cell Distribution Width 15.5 H Platelet Count 300 # Mean Platelet Volume 10.3 Immature Granulocytes % 0.400 Neutrophils % 72.6 Lymphocytes % 14.6 L Monocytes % 7.6 Eosinophils % 4.3 Basophils % 0.5 Nucleated Red Blood Cells % 0.0 Immature Granulocytes # 0.030 Neutrophils # 6.2 Lymphocytes # 1.3 Monocytes # 0.7 Eosinophils # 0.4 Basophils # 0.0 Nucleated Red Blood Cells # 0.0 Sodium Level 144 Potassium Level 4.2 Chloride Level 103 Carbon Dioxide Level 32 H Anion Gap 9 Blood Urea Nitrogen 29 H Creatinine 2.02 H Est Glomerular Filtrat Rate mL/min 34 L Glucose Level 125 Calcium Level 10.1 Magnesium Level 1.5 L Troponin I 0.059 HPI/ROS Admit Date/Time Admit Date/Time July 05, 2018 at 19:48 Hx of Present Illness This is a 58-year-old male with a history of hypertension, type 2 diabetes, CAD with stent, left kidney tumor status post removal, CKD, skin cancer status post removal. Patient was brought to the ER from [facility] for hypo glycemia and dizziness/weakness. Patient stated that he checked his blood glucose and it was in the 50s. He did have a mild acute onset of dizziness and generalized weakness a few minutes prior to EMS arrival. He was found to have a blood glucose as low as 44. He was given glucagon and glucose and upon arrival to the ER POC glucose was 116. His initial vitals were stable and also when he arrived to the ER vitals were stable. Patient was admitted here for NSTEMI a couple months ago and at that time he underwent PCI with stent to RCA. When he presented to the ER, EKG shows PVCs and trigeminy otherwise no ST elevation or depression. First troponin is negative. He said he was recently admitted at [facility] where his blood glucose was 20. Patient is on 4 mg of glimepiride, 80 units of Lantus in the morning and also on linagliptin. He said he is so frustrated with the amount of medication that he has been taking and is also confused about his medications. PMH/Family/Social Past Medical History Medical History: other (See HPI) Medications Current Medications IV Flush (NS 3 ml) 3 ml PER PROTOCOL IV ; Start 07/05/18 at 22:00; Status UNV Ondansetron HCl (Zofran Inj) 4 mg Q6H PRN IV NAUSEA/VOMITING; Start 07/05/18 at 22:00; Status UNV Acetaminophen (Tylenol Tab) 650 mg Q6H PRN PO .PAIN 1-3 OR TEMP; Start 07/05/18 at 22:00; Status UNV Heparin Sodium (Porcine) (Heparin (5000 Units/1ml)) 5,000 unit Q12 SC ; Start 07/06/18 at 09:00; Status UNV Albuterol/ Ipratropium (Duoneb) 3 ml Q2H RESP THERAPY PRN HHN SHORTNESS OF BREATH; Start 07/05/18 at 22:00; Status UNV Aspirin (Halfprin) 81 mg DAILY PO ; Start 07/06/18 at 09:00; Status UNV Atenolol (Tenormin) 50 mg DAILY PO ; Start 07/06/18 at 09:00; Status UNV Atorvastatin Calcium (Lipitor) 80 mg QHS PO ; Start 07/06/18 at 21:00; Status UNV Clopidogrel Bisulfate (plaVIX) 75 mg DAILY PO ; Start 07/06/18 at 09:00; Status UNV Metoprolol Succinate (Toprol Xl) 25 mg DAILY PO ; Start 07/06/18 at 09:00; Status UNV Miscellaneous Information 160 mg DAILY PO ; Start 07/06/18 at 09:00; Status UNV Coded Allergies: No Known Allergy (Unverified , 07/05/18) Past Surgical History Past Surgical Hx: other (See HPI) Family History Significant Family History: no pertinent family hx Social History Alcohol Use: none Smoking Status: Never smoker Drug Use: none Exam/Review of Systems Vital Signs Vitals Vital Signs Date Temp Pulse Resp B/P (MAP) Pulse Ox O2 O2 Flow FiO2 Time Delivery Rate 07/05/18 98.4 61 20 101/73 98 Room Air 21:04 (82) Exam Constitutional: alert, oriented, well developed Head: normocephalic, atraumatic Eyes: EOMI, PERRL Respiratory: clear to auscultation, normal air movement Cardiovascular: regular rate and rhythm, nl pulses Gastrointestinal: soft, non-tender Extremities: normal pulses GIBSON DING MD July 05, 2018 22:10
[2018-07-06] VITALS (11 sets, daily range): BP systolic 94–110; BP diastolic 52–63; PULSE 42–97; RESP 18–22
[2018-07-06] MEDS: ASPIRIN (EC) 81 MG TAB PO SCH (08:33)
[2018-07-06] MEDS: FENOFIBRATE 145 MG TAB PO SCH (08:33)
[2018-07-06] MEDS: CLOPIDOGREL 75 MG TAB PO SCH (08:33)
[2018-07-06] MEDS: HEPARIN 5,000 UNIT/1 ML VIAL SC SCH ×2 (08:37→20:19)
[2018-07-06] MEDS ORDERED: ATENOLOL 50 MG TAB PO SCH (09:00)
[2018-07-06] MEDS ORDERED: METOPROLOL (XL) 25 MG TAB PO SCH (09:00)
[2018-07-06] MEDS ORDERED: GLUCOSE GEL 15 GRAM TUBE PO PRN ×2 (11:30)
[2018-07-06] MEDS ORDERED: DEXTROSE 50% 50 ML SYRINGE IV PRN ×2 (11:30)
[2018-07-06] MEDS ORDERED: GLUCOSE GEL 15 GRAM TUBE BUCCAL PRN (11:30)
[2018-07-06] MEDS ORDERED: GLUCAGON 1 MG INJ IM PRN (11:30)
[2018-07-06] MEDS ORDERED: MAGNESIUM SULFATE 2 GM/50 ML 50 ML IVPB ONE (11:30)
--- NOTE | 2018-07-06 12:10 | CONS ---
Assessment/Plan Assessment/Plan Hospital Course (Demo Recall) 1. hypoglycemia 2. CAD 3/ S/P NSTEMI April 2018 4. s/p PCI RCA April 2018 5. HTN 6. Dyslipidemia 7/ DM 9/ PAFIB: CURRENTLY IN NSR 10 Hypo Mg REC Diabetic management as per internal medicine. Continue with aspirin and Plavix Continue with metoprolol but hold off on atenolol Electrolyte including magnesium will be replaced Continue with high-dose statin We will monitor on telemetry for the time being Thank you for his referral. We will continue to follow along with you SANTIAGO RENTERIA MD [facility] Consultation Date/Type/Reason Admit Date/Time July 05, 2018 at 19:48 Date of Consultation: July 06, 2018 Type of Consult Cardiology Reason for Consultation Arrhythmias Requesting Provider: PORTIA BELL Date/Time of Note DATE: 07/06/18 TIME: 12:02 Hx of Present Illness Interventional cardiology consultation note Chief complaint: Weakness. Hypoglycemia Reason for consult: Arrhythmia with frequent PVC History of present illness: Thank you for this referral. History was obtained from the patient who is a fair historian at best. From discussion with staff and physician review of the old chart This is a 58-year-old gentleman with history of coronary artery disease status post PCI of his right coronary artery diabetes hypertension chronic kidney disease obesity dyslipidemia who was brought into the emergency room because of weakness and hypoglycemia. Patient reported that she was at [facility] for the same reason and was severely hypoglycemic. He is not sure what medication he takes exactly. On the monitor he was noted to have frequent PVCs as well as bigeminy's. He denies any chest pain to me denies any palpitation to me. He has had a history of atrial fibrillation during his last [place] but currently has remained sinus rhythm though. Allergies: No reported drug allergies Medications were reviewed as per medical reconciliation sheet Family history: No history of early coronary artery disease Social history: Does not smoke or drink. Lives in a longterm Past medical history: Diabetes, hypertension, dyslipidemia, chronic kidney disease, coronary artery disease status post non-ST elevation myocardial infarction as well as PCI of his right coronary artery April 2018 Past surgical history: PCI of the artery April 2018 Review of system: Patient denies all others except for above-mentioned Past Medical History Home Meds Reported Medications Atorvastatin* (Atorvastatin*) 80 Mg Tablet, 80 MG PO QHS, #30 TAB 07/05/18 Clopidogrel Bisulfate* (Clopidogrel Bisulfate*) 75 Mg Tablet, 75 MG PO DAILY, #3 0 TAB 07/05/18 Fenofibrate, Micronized* (Fenofibrate*) 160 Mg Tablet, 160 MG PO DAILY, TAB 07/05/18 Insulin Glargine,Hum.rec.anlog (Violetaaglgala Baileypen U-100) 100 Unit/1 Ml Insuln.pen, 80 UNIT SC QAM, EA 07/05/18 Icosapent Ethyl (VASCEPA) 1 Gm Capsule, 2 GM PO BID, CAP 07/05/18 Atenolol* (Atenolol*) 50 Mg Tablet, 50 MG PO DAILY, #30 TAB 07/05/18 Linagliptin (TRADJENTA) 5 Mg Tablet, 5 MG PO DAILY, TAB 07/05/18 Metoprolol Succinate* (Toprol XL*) 25 Mg Tab.sr.24h, 25 MG PO DAILY, #30 TAB 07/05/18 Fenofibrate (Triglide) 160 Mg Tablet, 160 MG PO DAILY, TAB 07/05/18 Glimepiride* (Glimepiride*) 4 Mg Tablet, 4 MG PO WITH BREAKFAST DINNE, TAB 07/05/18 Aspirin* (Aspirin* EC) 81 Mg Tablet.dr, 81 MG PO DAILY, TAB 07/05/18 Discontinued Reported Medications Aspirin (Low Dose Aspirin) 81 Mg Tablet.dr, 81 MG PO DAILY, #30 TAB 12/27/17 Niacin* (Niacin* ER) 1,000 Mg Tablet.sa, 1500 MG PO QHS, #30 TAB 12/27/17 Insulin Glargine,Hum.rec.anlog (Lianne Blevins) 300 Unit/1 Ml Insuln.pen, 30 UNIT SQ QHS, EA 12/27/17 [place]-3 Acid Ethyl Esters (Lovaza) 1 Gm Capsule, 2 GM PO BID, CAP 12/27/17 Linagliptin (TRADJENTA) 5 Mg Tablet, 5 MG PO DAILY, TAB 12/27/17 Fenofibrate, Micronized* (Fenofibrate*) 160 Mg Tablet, 160 MG PO DAILY, TAB 12/27/17 Glimepiride* (Glimepiride*) 4 Mg Tablet, 4 MG PO WITH BREAKFAST DINNE, TAB 12/27/17 Discontinued Scripts Metoprolol Succinate* (Toprol XL*) 25 Mg Tab.sr.24h, 25 MG PO DAILY, #60 TAB Prov:ANNEMARIE HENRY MD 04/22/18 Atorvastatin* (Atorvastatin*) 80 Mg Tablet, 80 MG PO DAILY@21, #60 TAB Prov:ANNEMARIE HENRY MD 04/22/18 Clopidogrel Bisulfate (Clopidogrel) 75 Mg Tablet, 75 MG PO DAILY, #60 TAB Prov:ANNEMARIE HENRY MD 04/22/18 Ondansetron (Ondansetron Odt) 4 Mg Tab.rapdis, 4 MG PO Q6H PRN for NAUSEA AND/OR VOMITING, #10 TAB Prov:SAEED ROMANO MD 02/16/18 Hydrocodone/Acetaminophen ([place] 5-325 Tablet) 1 Each Tablet, 1 TAB PO Q6H PRN for PAIN, #7 TAB Prov:SAEED ROMANO MD 02/16/18 Medications Current Medications IV Flush (NS 3 ml) 3 ml PER PROTOCOL IV ; Start 07/05/18 at 22:00 Ondansetron HCl (Zofran Inj) 4 mg Q6H PRN IV NAUSEA/VOMITING; Start 07/05/18 at 22:00 Acetaminophen (Tylenol Tab) 650 mg Q6H PRN PO .PAIN 1-3 OR TEMP; Start 07/05/18 at 22:00 Heparin Sodium (Porcine) (Heparin (5000 Units/1ml)) 5,000 unit Q12 SC Last administered on 07/06/18at 08:37; Admin Dose 5,000 UNIT; Start 07/06/18 at 09:00 Albuterol/ Ipratropium (Duoneb) 3 ml Q2H RESP THERAPY PRN HHN SHORTNESS OF BREATH; Start 07/05/18 at 22:00 Aspirin (Halfprin) 81 mg DAILY PO Last administered on 07/06/18at 08:33; Admin Dose 81 MG; Start 07/06/18 at 09:00 Atorvastatin Calcium (Lipitor) 80 mg QHS PO ; Start 07/06/18 at 21:00 Clopidogrel Bisulfate (plaVIX) 75 mg DAILY PO Last administered on 07/06/18at 08:33; Admin Dose 75 MG; Start 07/06/18 at 09:00 Metoprolol Succinate (Toprol Xl) 25 mg DAILY PO ; Start 07/06/18 at 09:00 Fenofibrate (Tricor) 145 mg DAILY PO Last administered on 07/06/18at 08:33; Admin Dose 145 MG; Start 07/06/18 at 09:00 Diagnostic Test (Pha) (Accu-Chek) 1 ea 02 XX ; Start 07/07/18 at 02:00 Insulin Aspart (Novolog Insulin Pen) NOVOLOG *MILD* ALGORITHM WITH MEALS BEDTIM E SC ; Start 07/06/18 at 12:00 Miscellaneous Information 1 ea NOTE XX ; Start 07/06/18 at 11:30 Glucose (Glutose) 15 gm Q15M PRN PO DECREASED GLUCOSE; Start 07/06/18 at 11:30 Glucose (Glutose) 22.5 gm Q15M PRN PO DECREASED GLUCOSE; Start 07/06/18 at 11:30 Dextrose (D50w Syringe) 25 ml Q15M PRN IV DECREASED GLUCOSE; Start 07/06/18 at 11:30 Dextrose (D50w Syringe) 50 ml Q15M PRN IV DECREASED GLUCOSE; Start 07/06/18 at 11:30 Glucagon (Glucagen) 1 mg Q15M PRN IM DECREASED GLUCOSE; Start 07/06/18 at 11:30 Glucose (Glutose) 15 gm Q15M PRN BUCCAL DECREASED GLUCOSE; Start 07/06/18 at 11:30 Allergies: Coded Allergies: No Known Allergy (Unverified , 07/05/18) Past Surgical History Past Surgical Hx: other (See HPI) Social History Alcohol Use: none Smoking Status: Never smoker Drug Use: none Exam/Review of Systems Vital Signs Vitals Vital Signs Date Temp Pulse Resp B/P (MAP) Pulse Ox O2 O2 Flow FiO2 Time Delivery Rate 07/06/18 98.0 64 22 109/58 96 Room Air 11:26 (75) Intake and Output 07/05/18 07/05/18 07/06/18 1515:00 23:00 07:00 IntakeIntake Total 200 ml OutputOutput Total 300 ml BalanceBalance -100 ml Exam Exam General: no acute distress HEENT: NC/AT. pupils are equal. round. NECK: NO JVD. no stridor. CV: RRR. systolic murmur; no gallop or rubs. PULM: no wheezing or rhonchi. GI: SOFT, NT, ND, no rebound or guarding Extremity: trace B/L LE edema. no clubbing. neuro: awake and alert, . Psych: calm and pleasant rectal: deferred : normal ECG NSR PVC Labs Result Diagram: 07/06/18 0712 07/06/18 0702 Results 24hrs Laboratory Tests Test 07/05/18 18:37 07/05/18 19:00 07/06/18 00:30 07/06/18 07:02 Bedside Glucose 116 White Blood Count 8.5 # Red Blood Count 5.33 # Hemoglobin 14.7 Hematocrit 46.4 Mean Corpuscular 87.1 Volume Mean Corpuscular 27.6 L Hemoglobin Mean Corpuscular 31.7 L Hemoglobin Concent Red Cell 15.5 H Distribution Width Platelet Count 300 # Mean Platelet Volume 10.3 Immature 0.400 Granulocytes % Neutrophils % 72.6 Lymphocytes % 14.6 L Monocytes % 7.6 Eosinophils % 4.3 Basophils % 0.5 Nucleated Red Blood 0.0 Cells % Immature 0.030 Granulocytes # Neutrophils # 6.2 Lymphocytes # 1.3 Monocytes # 0.7 Eosinophils # 0.4 Basophils # 0.0 Nucleated Red Blood 0.0 Cells # Sodium Level 144 143 Potassium Level 4.2 4.4 Chloride Level 103 106 Carbon Dioxide Level 32 H 26 Anion Gap 9 11 Blood Urea Nitrogen 29 H 33 H Creatinine 2.02 H 1.84 H Est Glomerular 34 L 38 L Filtrat Rate mL/min Glucose Level 125 77 # Calcium Level 10.1 9.7 Magnesium Level 1.5 L 1.6 L Troponin I 0.059 0.059 Creatine Kinase 200 Creatine Kinase 1.1 Index Creatinine Kinase MB 2.24 (Mass) Total Bilirubin 0.4 Direct Bilirubin 0.00 Indirect Bilirubin 0.4 Aspartate Amino 41 Transf (AST/SGOT) Alanine 35 Aminotransferase (AL T/SGPT) Alkaline Phosphatase 57 Total Protein 7.5 Albumin 4.1 Globulin 3.40 H Albumin/Globulin 1.20 Ratio Triglycerides Level 265 H Cholesterol Level 155 LDL Cholesterol, 83 Calculated HDL Cholesterol 19 L Cholesterol/HDL 8.1 Ratio Test 07/06/18 07:12 White Blood Count 8.2 Red Blood Count 4.83 Hemoglobin 13.3 L Hematocrit 42.1 Mean Corpuscular 87.2 Volume Mean Corpuscular 27.5 L Hemoglobin Mean Corpuscular 31.6 L Hemoglobin Concent Red Cell 15.4 H Distribution Width Platelet Count 263 Mean Platelet Volume 10.7 H Immature 0.100 Granulocytes % Neutrophils % 66.8 Lymphocytes % 17.8 Monocytes % 10.9 Eosinophils % 3.8 Basophils % 0.6 Nucleated Red Blood 0.0 Cells % Immature 0.010 Granulocytes # Neutrophils # 5.5 Lymphocytes # 1.5 Monocytes # 0.9 Eosinophils # 0.3 Basophils # 0.1 Nucleated Red Blood 0.0 Cells # Hemoglobin A1c 7.0 H Creatine Kinase 186 Creatine Kinase 1.2 Index Creatinine Kinase MB 2.28 (Mass) Troponin I 0.052 Medications Medications Current Medications IV Flush (NS 3 ml) 3 ml PER PROTOCOL IV ; Start 07/05/18 at 22:00 Ondansetron HCl (Zofran Inj) 4 mg Q6H PRN IV NAUSEA/VOMITING; Start 07/05/18 at 22:00 Acetaminophen (Tylenol Tab) 650 mg Q6H PRN PO .PAIN 1-3 OR TEMP; Start 07/05/18 at 22:00 Heparin Sodium (Porcine) (Heparin (5000 Units/1ml)) 5,000 unit Q12 SC Last administered on 07/06/18at 08:37; Admin Dose 5,000 UNIT; Start 07/06/18 at 09:00 Albuterol/ Ipratropium (Duoneb) 3 ml Q2H RESP THERAPY PRN HHN SHORTNESS OF BREATH; Start 07/05/18 at 22:00 Aspirin (Halfprin) 81 mg DAILY PO Last administered on 07/06/18at 08:33; Admin Dose 81 MG; Start 07/06/18 at 09:00 Atorvastatin Calcium (Lipitor) 80 mg QHS PO ; Start 07/06/18 at 21:00 Clopidogrel Bisulfate (plaVIX) 75 mg DAILY PO Last administered on 07/06/18at 08:33; Admin Dose 75 MG; Start 07/06/18 at 09:00 Metoprolol Succinate (Toprol Xl) 25 mg DAILY PO ; Start 07/06/18 at 09:00 Fenofibrate (Tricor) 145 mg DAILY PO Last administered on 07/06/18at 08:33; Admin Dose 145 MG; Start 07/06/18 at 09:00 Diagnostic Test (Pha) (Accu-Chek) 1 ea 02 XX ; Start 07/07/18 at 02:00 Insulin Aspart (Novolog Insulin Pen) NOVOLOG *MILD* ALGORITHM WITH MEALS BEDTIME SC ; Start 07/06/18 at 12:00 Miscellaneous Information 1 ea NOTE XX ; Start 07/06/18 at 11:30 Glucose (Glutose) 15 gm Q15M PRN PO DECREASED GLUCOSE; Start 07/06/18 at 11:30 Glucose (Glutose) 22.5 gm Q15M PRN PO DECREASED GLUCOSE; Start 07/06/18 at 11:30 Dextrose (D50w Syringe) 25 ml Q15M PRN IV DECREASED GLUCOSE; Start 07/06/18 at 11:30 Dextrose (D50w Syringe) 50 ml Q15M PRN IV DECREASED GLUCOSE; Start 07/06/18 at 11:30 Glucagon (Glucagen) 1 mg Q15M PRN IM DECREASED GLUCOSE; Start 07/06/18 at 11:30 Glucose (Glutose) 15 gm Q15M PRN BUCCAL DECREASED GLUCOSE; Start 07/06/18 at 11:30 SANTIAGO RENTERIA MD July 06, 2018 12:10
[2018-07-06] MEDS: INSULIN ASPART [NOVOLOG] 3 ML PEN SC SCH ×3 (12:58→20:21)
[2018-07-06] MEDS ORDERED: MAGNESIUM SULFATE 4 GM/100 ML 100 ML IVPB ONE (13:30)
--- NOTE | 2018-07-06 15:21 | PN ---
Date/Time of Note Date/Time of Note DATE: 07/06/18 TIME: 15:21 Objective Vitals Vital Signs Date Temp Pulse Resp B/P (MAP) Pulse Ox O2 O2 Flow FiO2 Time Delivery Rate 07/06/18 83 12:01 07/06/18 98.0 22 109/58 96 Room Air 11:26 (75) Intake and Output 07/05/18 07/05/18 07/06/18 1515:00 23:00 07:00 IntakeIntake Total 200 ml OutputOutput Total 300 ml BalanceBalance -100 ml Results Result Diagram: 07/06/18 0712 07/06/18 0702 Medications Medications Current Medications IV Flush (NS 3 ml) 3 ml PER PROTOCOL IV ; Start 07/05/18 at 22:00 Ondansetron HCl (Zofran Inj) 4 mg Q6H PRN IV NAUSEA/VOMITING; Start 07/05/18 at 22:00 Acetaminophen (Tylenol Tab) 650 mg Q6H PRN PO .PAIN 1-3 OR TEMP; Start 07/05/18 at 22:00 Heparin Sodium (Porcine) (Heparin (5000 Units/1ml)) 5,000 unit Q12 SC Last administered on 07/06/18at 08:37; Admin Dose 5,000 UNIT; Start 07/06/18 at 09:00 Albuterol/ Ipratropium (Duoneb) 3 ml Q2H RESP THERAPY PRN HHN SHORTNESS OF BREATH; Start 07/05/18 at 22:00 Aspirin (Halfprin) 81 mg DAILY PO Last administered on 07/06/18at 08:33; Admin Dose 81 MG; Start 07/06/18 at 09:00 Atorvastatin Calcium (Lipitor) 80 mg QHS PO ; Start 07/06/18 at 21:00 Clopidogrel Bisulfate (plaVIX) 75 mg DAILY PO Last administered on 07/06/18at 08:33; Admin Dose 75 MG; Start 07/06/18 at 09:00 Metoprolol Succinate (Toprol Xl) 25 mg DAILY PO ; Start 07/06/18 at 09:00 Fenofibrate (Tricor) 145 mg DAILY PO Last administered on 07/06/18at 08:33; Admin Dose 145 MG; Start 07/06/18 at 09:00 Diagnostic Test (Pha) (Accu-Chek) 1 ea 02 XX ; Start 07/07/18 at 02:00 Insulin Aspart (Novolog Insulin Pen) NOVOLOG *MILD* ALGORITHM WITH MEALS BEDTIME SC Last administered on 07/06/18at 12:58; Admin Dose 4 UNIT; Start 07/06/18 at 12:00 Miscellaneous Information 1 ea NOTE XX ; Start 07/06/18 at 11:30 Glucose (Glutose) 15 gm Q15M PRN PO DECREASED GLUCOSE; Start 07/06/18 at 11:30 Glucose (Glutose) 22.5 gm Q15M PRN PO DECREASED GLUCOSE; Start 07/06/18 at 11:30 Dextrose (D50w Syringe) 25 ml Q15M PRN IV DECREASED GLUCOSE; Start 07/06/18 at 11:30 Dextrose (D50w Syringe) 50 ml Q15M PRN IV DECREASED GLUCOSE; Start 07/06/18 at 11:30 Glucagon (Glucagen) 1 mg Q15M PRN IM DECREASED GLUCOSE; Start 07/06/18 at 11:30 Glucose (Glutose) 15 gm Q15M PRN BUCCAL DECREASED GLUCOSE; Start 07/06/18 at 11:30 Magnesium Sulfate 100 ml @ 25 mls/hr ONCE ONCE IVPB Last administered on 07/06/18at 13:34; Admin Dose 25 MLS/HR; Start 07/06/18 at 13:30; Stop 07/06/18 at 17:29 VTE Prophylaxis Risk score (from Nsg)>0 risk: 5 SCD applied (from Ns): No SCD contraindication: other Lines/Catheters IV Catheter Type: Sánchez in Place: No Assessment/Plan Hospital Course Subjective Patient feeling well, no acute complaints Objective Physical exam General: Patient is laying in bed and answers questions appropriately Mentation: Patient is alert and oriented 4, Head: Normocephalic atraumatic Eyes: EOMI, pupils reactive to light Neck: Supple, nontender, midline Respiratory: Clear to auscultation bilaterally Cardiovascular: regular rate, no obvious murmurs Gastrointestinal: non-tender to palpation, bowel sounds heard. Neurological: Moves all extremities spontaneously Skin: No new skin lesions Assessment and plan Hypoglycemic episodes -Possibly due to sulfonylurea, patient also on very high dose Lantus -Titrate up as tolerated, will slowly increase Lantus and added linagliptin -DC sulfonylurea Dizziness and generalized weakness -Very likely secondary to hypoglycemia, feeling better already, monitor -EKG does show frequent PVCs and trigeminy, cardiology consulted Coronary artery disease with stent to RCA in April 2018 -Continue home meds -Cardiology on board Diabetes mellitus -Appears patient is on a very aggressive regimen at home, will cut back for now and titrate up as tolerated Chronic kidney disease -History of left kidney tumor removal, unknown baseline however, nephrology consulted Hypertension -Continue home meds as tolerated Disposition -Titrate appropriately for his diabetic medications, cardiology and nephrology recommendations pending. PORTIA BELL July 06, 2018 15:21
--- NOTE | 2018-07-06 18:14 | CONS ---
DATE OF ADMISSION: 07/06/2018 DATE OF CONSULTATION: 07/06/2018 TYPE OF CONSULTATION: Nephrology. REASON FOR CONSULTATION: Acute kidney injury, CKD. PHYSICIAN REQUESTING CONSULT: Portia Miner MD HISTORY OF PRESENT ILLNESS: This is a 58-year-old male with a past medical history of chronic kidney disease with a baseline creatinine around 2.0 mg/dL, history of kidney tumor, status post resection, history of diabetes, hypertension, dyslipidemia, who presents to [facility] with d izziness, weakness. The patient was found in the field to have a glucose level of 40 by EMS services . The patient was given Glucagon upon arrival to the emergency room. The patient had EKG which show ed PVC. The patient was given IV fluids in the emergency room and subsequently transferred to [facility] for evaluation. In terms of patient's renal history, the patient has underlying CKD with previous baseline creatinine 2.0 mg/dL. The patient's current creatinine is 1.84 mg/dL. There are no reports of any hemoptysis, hematemesis or hematochezia. PAST MEDICAL HISTORY: History of CKD, history of coronary artery disease, history of diabetes, histo ry of hypertension. PAST SURGICAL HISTORY: Status post PCI. FAMILY HISTORY: No family history of kidney disease. SOCIAL HISTORY: Does not drink, smoke or do drugs. MEDICATIONS: Have been reviewed. REVIEW OF SYSTEMS: A 14-point review of systems conducted. Pertinent positives stated in HPI, other jacobsen negative. PHYSICAL EXAMINATION: VITAL SIGNS: Blood pressure is 134/76, respirations 16, pulse 72. HEENT: Head is normocephalic. NECK: Supple. HEART: Regular rate. LUNGS: Show diminished breath sounds at base. ABDOMEN: Soft, nontender to palpation without rebound or guarding. EXTREMITIES: Negative for clubbing, cyanosis. Trace edema. DERMATOLOGIC: No rashes. MUSCULOSKELETAL: No joint effusion. NEUROLOGIC: No focal deficits. LABORATORY DATA: Have been reviewed. ASSESSMENT AND PLAN: 1. Chronic kidney disease with baseline creatinine around 2.0 mg/dL. The patient's renal function i s currently below baseline. Plan would be to continue current treatment plan, continue supportive ca re, renally dose all medications. 2. Anemia. Monitor hemoglobin and hematocrit levels. 3. Mineral bone disorder. Monitor calcium and phosphorus level. 4. Hypertension. Continue current blood pressure regimen. 5. Hypomagnesemia. We will replete with magnesium sulfate and magnesium oxide. 6. Hypoglycemia. Etiology is likely due to in the setting of chronic kidney disease. We will continue to monitor glucose levels closely. Consider adjusting diuretic regimen. 7. History of coronary artery disease, status post history of PCI. Continue current medical managem ent. Thank you, Dr. Miner, for this interesting consult. It will be a pleasure to follow patient with you t hroughout the hospital course. Dictated By: DEVORA KUMARI DO NR/NTS Conf#: [id number] DID#: [id number] CC: PORTIA MINER MD; SANTIAGO RENTERIA MD; GIBSON DING MD;*[facility]*
[2018-07-06] MEDS: ATORVASTATIN 80 MG TAB PO SCH (20:17)
[2018-07-06] MEDS: INSULIN GLARGINE [LANTus] (100 UNITS/ML) SYG SC SCH (20:17)
[2018-07-07] VITALS (10 sets, daily range): BP systolic 99–104; BP diastolic 56–70; PULSE 54–105; RESP 18–22
[2018-07-07] MEDS: ACCU-CHEK XX SCH (02:00)
[2018-07-07] MEDS: INSULIN ASPART [NOVOLOG] 3 ML PEN SC SCH ×4 (07:56→20:32)
--- NOTE | 2018-07-07 08:29 | CONS ---
Consult Date/Type/Reason Admit Date/Time July 06, 2018 at 09:01 Initial Consult Date 07/06/18 Type of Consultation: cv Requesting Provider: PORTIA BELL Date/Time of Note DATE: 07/07/18 TIME: 08:26 Subjective Interventional cardiology follow-up progress note Subjective: Discussed with the staff and telemetry was reviewed. Patient remains in normal sinus rhythm. He still has frequent PVC intermittently trigeminy but this has improved now Patient with episode of sinus bradycardia overnight. No chest pain or pressure no palpitation Objective: General: no acute distress HEENT: NC/AT. pupils are equal. round. NECK: NO JVD. no stridor. CV: RRR. systolic murmur; no gallop or rubs. PULM: no wheezing or rhonchi. GI: SOFT, NT, ND, no rebound or guarding Extremity: trace B/L LE edema. no clubbing. neuro: awake and alert, . Psych: calm and pleasant rectal: deferred : normal ECG NSR PVC Objective Vitals Vital Signs Date Temp Pulse Resp B/P (MAP) Pulse Ox O2 O2 Flow FiO2 Time Delivery Rate 07/07/18 83 08:00 07/07/18 98.6 22 102/70 Room Air 07:05 (81) 07/07/18 95 03:57 Intake and Output 07/06/18 07/06/18 07/07/18 1515:00 23:00 07:00 IntakeIntake Total 1200 ml 350 ml BalanceBalance 1200 ml 350 ml Results/Medications Result Diagram: 07/07/18 0516 07/07/18 0516 Results 24 hrs Laboratory Tests Test 07/06/18 12:54 07/06/18 17:25 07/06/18 17:30 07/06/18 20:13 Bedside Glucose 278 H 167 150 Urine Color STRAW Urine Clarity CLEAR Urine pH 6.0 Urine Specific 1.014 [place] Urine Ketones NEGATIVE Urine Nitrite NEGATIVE Urine Bilirubin NEGATIVE Urine Urobilinogen NEGATIVE Urine Leukocyte NEGATIVE Esterase Urine Hemoglobin NEGATIVE Urine Random 95.80 Creatinine Urine Random Sodium 111 H Urine Glucose NEGATIVE Urine Total Protein 15.0 H Urine Opiates Screen NEGATIVE Urine Barbiturates NEGATIVE Urine Amphetamines NEGATIVE Screen Urine NEGATIVE Benzodiazepines Screen Urine Cocaine Screen NEGATIVE Urine Cannabinoids NEGATIVE Test 07/07/18 05:16 07/07/18 07:54 White Blood Count 6.8 Red Blood Count 5.08 Hemoglobin 14.1 Hematocrit 44.5 Mean Corpuscular 87.6 Volume Mean Corpuscular 27.8 L Hemoglobin Mean Corpuscular 31.7 L Hemoglobin Concent Red Cell 15.5 H Distribution Width Platelet Count 299 Mean Platelet Volume 10.7 H Immature 0.400 Granulocytes % Neutrophils % 53.0 Lymphocytes % 24.8 Monocytes % 14.1 H Eosinophils % 7.0 Basophils % 0.7 Nucleated Red Blood 0.0 Cells % Immature 0.030 Granulocytes # Neutrophils # 3.6 Lymphocytes # 1.7 Monocytes # 1.0 H Eosinophils # 0.5 Basophils # 0.1 Nucleated Red Blood 0.0 Cells # Sodium Level 143 Potassium Level 4.0 Chloride Level 106 Carbon Dioxide Level 24 Anion Gap 13 Blood Urea Nitrogen 36 H Creatinine 2.13 H Est Glomerular 32 L Filtrat Rate mL/min Glucose Level 87 Hemoglobin A1c 6.7 H Calcium Level 10.1 Phosphorus Level 4.1 Magnesium Level 2.1 Total Bilirubin 0.4 Direct Bilirubin 0.00 Indirect Bilirubin 0.4 Aspartate Amino 36 Transf (AST/SGOT) Alanine 34 Aminotransferase (AL T/SGPT) Alkaline Phosphatase 72 Creatine Kinase 157 Creatine Kinase 1.4 Index Creatinine Kinase MB 2.23 (Mass) Troponin I 0.065 B-Type Natriuretic 258 H Peptide Total Protein 7.9 Albumin 4.4 Globulin 3.50 H Albumin/Globulin 1.25 Ratio Thyroid Stimulating 4.630 Hormone (TSH) Free Thyroxine 0.81 Bedside Glucose 105 Home Meds Reported Medications Atorvastatin* (Atorvastatin*) 80 Mg Tablet, 80 MG PO QHS, #30 TAB 07/05/18 Clopidogrel Bisulfate* (Clopidogrel Bisulfate*) 75 Mg Tablet, 75 MG PO DAILY, #30 TAB 07/05/18 Fenofibrate, Micronized* (Fenofibrate*) 160 Mg Tablet, 160 MG PO DAILY, TAB 07/05/18 Insulin Glargine,Hum.rec.anlog (Basaglar Kwikpen U-100) 100 Unit/1 Ml Insuln.pen, 80 UNIT SC QAM, EA 07/05/18 Icosapent Ethyl (VASCEPA) 1 Gm Capsule, 2 GM PO BID, CAP 07/05/18 Atenolol* (Atenolol*) 50 Mg Tablet, 50 MG PO DAILY, #30 TAB 07/05/18 Linagliptin (TRADJENTA) 5 Mg Tablet, 5 MG PO DAILY, TAB 07/05/18 Metoprolol Succinate* (Toprol XL*) 25 Mg Tab.sr.24h, 25 MG PO DAILY, #30 TAB 07/05/18 Fenofibrate (Triglide) 160 Mg Tablet, 160 MG PO DAILY, TAB 07/05/18 Glimepiride* (Glimepiride*) 4 Mg Tablet, 4 MG PO WITH BREAKFAST DINNE, TAB 07/05/18 Aspirin* (Aspirin* EC) 81 Mg Tablet.dr, 81 MG PO DAILY, TAB 07/05/18 Discontinued Reported Medications Aspirin (Low Dose Aspirin) 81 Mg Tablet.dr, 81 MG PO DAILY, #30 TAB 12/27/17 Niacin* (Niacin* ER) 1,000 Mg Tablet.sa, 1500 MG PO QHS, #30 TAB 12/27/17 Insulin Glargine,Hum.rec.anlog (Toutj Solostar) 300 Unit/1 Ml Insuln.pen, 30 UNIT SQ QHS, EA 12/27/17 [place]-3 Acid Ethyl Esters (Lovaza) 1 Gm Capsule, 2 GM PO BID, CAP 12/27/17 Linagliptin (TRADJENTA) 5 Mg Tablet, 5 MG PO DAILY, TAB 12/27/17 Fenofibrate, Micronized* (Fenofibrate*) 160 Mg Tablet, 160 MG PO DAILY, TAB 12/27/17 Glimepiride* (Glimepiride*) 4 Mg Tablet, 4 MG PO WITH BREAKFAST DINNE, TAB 12/27/17 Discontinued Scripts Metoprolol Succinate* (Toprol XL*) 25 Mg Tab.sr.24h, 25 MG PO DAILY, #60 TAB Prov:ANNEMARIE HENRY MD 04/22/18 Atorvastatin* (Atorvastatin*) 80 Mg Tablet, 80 MG PO DAILY@21, #60 TAB Prov:ANNEMARIE HENRY MD 04/22/18 Clopidogrel Bisulfate (Clopidogrel) 75 Mg Tablet, 75 MG PO DAILY, #60 TAB Prov:ANNEMARIE HENRY MD 04/22/18 Ondansetron (Ondansetron Odt) 4 Mg Tab.rapdis, 4 MG PO Q6H PRN for NAUSEA AND/OR VOMITING, #10 TAB Prov:SAEED ROMANO MD 02/16/18 Hydrocodone/Acetaminophen ([place] 5-325 Tablet) 1 Each Tablet, 1 TAB PO Q6H PRN for PAIN, #7 TAB Prov:SAEED ROMANO MD 02/16/18 Medications Current Medications IV Flush (NS 3 ml) 3 ml PER PROTOCOL IV ; Start 07/05/18 at 22:00 Ondansetron HCl (Zofran Inj) 4 mg Q6H PRN IV NAUSEA/VOMITING; Start 07/05/18 at 22:00 Acetaminophen (Tylenol Tab) 650 mg Q6H PRN PO .PAIN 1-3 OR TEMP; Start 07/05/18 at 22:00 Heparin Sodium (Porcine) (Heparin (5000 Units/1ml)) 5,000 unit Q12 SC Last administered on 07/06/18at 20:19; Admin Dose 5,000 UNIT; Start 07/06/18 at 09:00 Albuterol/ Ipratropium (Duoneb) 3 ml Q2H RESP THERAPY PRN HHN SHORTNESS OF BREATH; Start 07/05/18 at 22:00 Aspirin (Halfprin) 81 mg DAILY PO Last administered on 07/06/18at 08:33; Admin Dose 81 MG; Start 07/06/18 at 09:00 Atorvastatin Calcium (Lipitor) 80 mg QHS PO Last administered on 07/06/18at 20:17; Admin Dose 80 MG; Start 07/06/18 at 21:00 Clopidogrel Bisulfate (plaVIX) 75 mg DAILY PO Last administered on 07/06/18at 08:33; Admin Dose 75 MG; Start 07/06/18 at 09:00 Metoprolol Succinate (Toprol Xl) 25 mg DAILY PO ; Start 07/06/18 at 09:00 Fenofibrate (Tricor) 145 mg DAILY PO Last administered on 07/06/18at 08:33; Admin Dose 145 MG; Start 07/06/18 at 09:00 Diagnostic Test (Pha) (Accu-Chek) 1 ea 02 XX ; Start 07/07/18 at 02:00 Insulin Aspart (Novolog Insulin Pen) NOVOLOG *MILD* ALGORITHM WITH MEALS BEDTIME SC Last administered on 07/06/18at 17:28; Admin Dose 1 UNIT; Start 07/06/18 at 12:00 Miscellaneous Information 1 ea NOTE XX ; Start 07/06/18 at 11:30 Glucose (Glutose) 15 gm Q15M PRN PO DECREASED GLUCOSE; Start 07/06/18 at 11:30 Glucose (Glutose) 22.5 gm Q15M PRN PO DECREASED GLUCOSE; Start 07/06/18 at 11:30 Dextrose (D50w Syringe) 25 ml Q15M PRN IV DECREASED GLUCOSE; Start 07/06/18 at 11:30 Dextrose (D50w Syringe) 50 ml Q15M PRN IV DECREASED GLUCOSE; Start 07/06/18 at 11:30 Glucagon (Glucagen) 1 mg Q15M PRN IM DECREASED GLUCOSE; Start 07/06/18 at 11:30 Glucose (Glutose) 15 gm Q15M PRN BUCCAL DECREASED GLUCOSE; Start 07/06/18 at 11:30 Insulin Glargine (Lantus) 25 units DAILY@2000 SC Last administered on 07/06/18at 20:17; Admin Dose 25 UNITS; Start 07/06/18 at 20:00 Linagliptin (Tradjenta) 5 mg DAILY PO ; Start 07/07/18 at 09:00 Assessment/Plan Hospital Course (Demo Recall) 1. hypoglycemia 2. CAD 3/ S/P NSTEMI April 2018 4. s/p PCI RCA April 2018 5. HTN 6. Dyslipidemia 7/ DM 9/ PAFIB: CURRENTLY IN NSR 10 Hypo Mg REC Diabetic management as per internal medicine. Continue with aspirin and Plavix dec metoprolol due to bradycardia Electrolyte including magnesium will be replaced Continue with high-dose statin DC planning as per internal medicine. Patient already has had a cardiology follow-up with me on August 02 at 10:30 AM. We will keep the appointment and see him in the office Thank you for his referral. We will continue to follow along with you SANTIAGO RENTERIA MD [facility] SANTIAGO RENTERIA MD July 07, 2018 08:29
[2018-07-07] MEDS: CLOPIDOGREL 75 MG TAB PO SCH (09:10)
[2018-07-07] MEDS: ASPIRIN (EC) 81 MG TAB PO SCH (09:10)
[2018-07-07] MEDS: FENOFIBRATE 145 MG TAB PO SCH (09:10)
[2018-07-07] MEDS: METOPROLOL (XL) 25 MG TAB PO SCH (09:11)
[2018-07-07] MEDS: LINAGLIPTIN 5 MG TABLET PO SCH (09:11)
[2018-07-07] MEDS: HEPARIN 5,000 UNIT/1 ML VIAL SC SCH ×2 (09:14→20:33)
--- NOTE | 2018-07-07 13:43 | PN ---
DATE: 07/07/2018 SUBJECTIVE: The patient is stable, no events overnight. No fevers, chills, nausea, vomiting. OBJECTIVE: VITAL SIGNS: Blood pressure is 102/70, pulse 83, respirations 22, temperature 98.6. HEENT: Head is normocephalic. NECK: Supple. HEART: Regular rate. LUNGS: Show diminished breath sounds at the base. ABDOMEN: Soft, nontender to palpation. No rebound or guarding. EXTREMITIES: Negative for clubbing, cyanosis. Trace edema. DERMATOLOGIC: No rashes. MUSCULOSKELETAL: No joint effusion. NEUROLOGIC: No change in exam. MEDICATIONS: Have been reviewed. LABORATORY DATA: Has been reviewed. ASSESSMENT AND PLAN: 1. Nonoliguric acute kidney injury on top of chronic kidney disease with a baseline creatinine aroun d 2.0 mg/dL. The patient's renal function is fluctuating, but overall near baseline. Would continue current treatment plan, supportive care, and renally dose all medications. 2. Anemia. Monitor hemoglobin and hematocrit levels. 3. Mineral bone disorder. Monitor calcium and phosphorus levels. 4. Hypertension. Continue current blood pressure regimen. 5. Hypomagnesemia. Continue to monitor and replete as needed. 6. Hypoglycemia, improved. 7. History of coronary artery disease. Continue medical management. Dictated By: DEVORA DELAROSA/LEON Conf#: [id number] DID#: [id number]
--- NOTE | 2018-07-07 14:20 | PN ---
Date/Time of Note Date/Time of Note DATE: 07/07/18 TIME: 14:19 Objective Vitals Vital Signs Date Temp Pulse Resp B/P (MAP) Pulse Ox O2 O2 Flow FiO2 Time Delivery Rate 07/07/18 67 12:00 07/07/18 97.8 22 102/67 96 Room Air 11:11 (79) Intake and Output 07/06/18 07/06/18 07/07/18 1515:00 23:00 07:00 IntakeIntake Total 1200 ml 350 ml BalanceBalance 1200 ml 350 ml Results Result Diagram: 07/07/18 0516 07/07/18 0516 Medications Medications Current Medications IV Flush (NS 3 ml) 3 ml PER PROTOCOL IV ; Start 07/05/18 at 22:00 Ondansetron HCl (Zofran Inj) 4 mg Q6H PRN IV NAUSEA/VOMITING; Start 07/05/18 at 22:00 Acetaminophen (Tylenol Tab) 650 mg Q6H PRN PO .PAIN 1-3 OR TEMP; Start 07/05/18 at 22:00 Heparin Sodium (Porcine) (Heparin (5000 Units/1ml)) 5,000 unit Q12 SC Last administered on 07/07/18at 09:14; Admin Dose 5,000 UNIT; Start 07/06/18 at 09:00 Albuterol/ Ipratropium (Duoneb) 3 ml Q2H RESP THERAPY PRN HHN SHORTNESS OF BREATH; Start 07/05/18 at 22:00 Aspirin (Halfprin) 81 mg DAILY PO Last administered on 07/07/18at 09:10; Admin Dose 81 MG; Start 07/06/18 at 09:00 Atorvastatin Calcium (Lipitor) 80 mg QHS PO Last administered on 07/06/18at 20:17; Admin Dose 80 MG; Start 07/06/18 at 21:00 Clopidogrel Bisulfate (plaVIX) 75 mg DAILY PO Last administered on 07/07/18at 09:10; Admin Dose 75 MG; Start 07/06/18 at 09:00 Fenofibrate (Tricor) 145 mg DAILY PO Last administered on 07/07/18at 09:10; Admin Dose 145 MG; Start 07/06/18 at 09:00 Diagnostic Test (Pha) (Accu-Chek) 1 ea 02 XX ; Start 07/07/18 at 02:00 Insulin Aspart (Novolog Insulin Pen) NOVOLOG *MILD* ALGORITHM WITH MEALS BEDTIME SC Last administered on 07/06/18at 17:28; Admin Dose 1 UNIT; Start 07/06/18 at 12:00 Miscellaneous Information 1 ea NOTE XX ; Start 07/06/18 at 11:30 Glucose (Glutose) 15 gm Q15M PRN PO DECREASED GLUCOSE; Start 07/06/18 at 11:30 Glucose (Glutose) 22.5 gm Q15M PRN PO DECREASED GLUCOSE; Start 07/06/18 at 11:30 Dextrose (D50w Syringe) 25 ml Q15M PRN IV DECREASED GLUCOSE; Start 07/06/18 at 11:30 Dextrose (D50w Syringe) 50 ml Q15M PRN IV DECREASED GLUCOSE; Start 07/06/18 at 11:30 Glucagon (Glucagen) 1 mg Q15M PRN IM DECREASED GLUCOSE; Start 07/06/18 at 11:30 Glucose (Glutose) 15 gm Q15M PRN BUCCAL DECREASED GLUCOSE; Start 07/06/18 at 11:30 Insulin Glargine (Lantus) 25 units DAILY@2000 SC Last administered on 07/06/18at 20:17; Admin Dose 25 UNITS; Start 07/06/18 at 20:00 Linagliptin (Tradjenta) 5 mg DAILY PO Last administered on 07/07/18at 09:11; Admin Dose 5 MG; Start 07/07/18 at 09:00 Metoprolol Succinate (Toprol Xl) 12.5 mg DAILY PO Last administered on 07/07/18at 09:11; Admin Dose 12.5 MG; Start 07/07/18 at 09:00 VTE Prophylaxis Risk score (from Nsg)>0 risk: 1 SCD applied (from Nsg): No SCD contraindication: other Lines/Catheters IV Catheter Type: Sánchez in Place: No Assessment/Plan Hospital Course Subjective Patient feeling well, no acute complaints Objective Physical exam General: Patient is laying in bed and answers questions appropriately Mentation: Patient is alert and oriented 4, Head: Normocephalic atraumatic Eyes: EOMI, pupils reactive to light Neck: Supple, nontender, midline Respiratory: Clear to auscultation bilaterally Cardiovascular: regular rate, no obvious murmurs Gastrointestinal: non-tender to palpation, bowel sounds heard. Neurological: Moves all extremities spontaneously Skin: No new skin lesions Assessment and plan Hypoglycemic episodes -Possibly due to sulfonylurea, patient also on very high dose Lantus -Titrate up as tolerated, will slowly increase Lantus and added linagliptin -DC sulfonylurea Dizziness and generalized weakness -Very likely secondary to hypoglycemia, feeling better already, monitor -EKG does show frequent PVCs and trigeminy, cardiology consulted Coronary artery disease with stent to RCA in April 2018 -Continue home meds -Cardiology on board Diabetes mellitus -Appears patient is on a very aggressive regimen at home, will cut back for now and titrate up as tolerated Chronic kidney disease -History of left kidney tumor removal, baseline approximately 2.0 per nephrology, nephrology consulted Hypertension -Continue home meds as tolerated Disposition -Titrate appropriately for his diabetic medications, if sugars are stable, will discharge tomorrow PORTIA BELL July 07, 2018 14:20
[2018-07-07] MEDS: ATORVASTATIN 80 MG TAB PO SCH (20:31)
[2018-07-07] MEDS: INSULIN GLARGINE [LANTus] (100 UNITS/ML) SYG SC SCH (20:32)
[2018-07-08] VITALS: BP 96/52; PULSE 62; PULSE 85; RESP 18
[2018-07-08] MEDS: ACCU-CHEK XX SCH (02:13)
[2018-07-08 03:51] VITALS: BP 101/53; PULSE 66; RESP 18
[2018-07-08 07:14] VITALS: BP 107/69; PULSE 61; RESP 17
[2018-07-08] MEDS: INSULIN ASPART [NOVOLOG] 3 ML PEN SC SCH ×2 (07:41→11:53)
[2018-07-08] MEDS: FENOFIBRATE 145 MG TAB PO SCH (08:22)
[2018-07-08] MEDS: CLOPIDOGREL 75 MG TAB PO SCH (08:22)
[2018-07-08] MEDS: ASPIRIN (EC) 81 MG TAB PO SCH (08:23)
[2018-07-08] MEDS: LINAGLIPTIN 5 MG TABLET PO SCH (08:24)
[2018-07-08] MEDS: METOPROLOL (XL) 25 MG TAB PO SCH (08:30)
[2018-07-08] MEDS: HEPARIN 5,000 UNIT/1 ML VIAL SC SCH (08:30)
--- NOTE | 2018-07-08 08:31 | CONS ---
Consult Date/Type/Reason Admit Date/Time July 06, 2018 at 09:01 Initial Consult Date 07/06/18 Type of Consultation: cv Requesting Provider: PORTIA BELL Date/Time of Note DATE: 07/08/18 TIME: 08:29 Subjective Interventional cardiology follow-up progress note Subjective: Discussed with the staff and telemetry was reviewed. Patient is off tele now No chest pain or pressure no palpitation he wants to go home Objective: General: no acute distress HEENT: NC/AT. pupils are equal. round. NECK: NO JVD. no stridor. CV: RRR. systolic murmur; no gallop or rubs. PULM: no wheezing or rhonchi. GI: SOFT, NT, ND, no rebound or guarding Extremity: trace B/L LE edema. no clubbing. neuro: awake and alert, . Psych: calm and pleasant rectal: deferred : normal ECG NSR PVC Objective Vitals Vital Signs Date Temp Pulse Resp B/P (MAP) Pulse Ox O2 O2 Flow FiO2 Time Delivery Rate 07/08/18 98.3 61 17 107/69 96 07:14 (82) 07/08/18 Room Air 00:00 Intake and Output 07/07/18 07/07/18 07/08/18 1515:00 23:00 07:00 IntakeIntake Total 980 ml 1800 ml BalanceBalance 980 ml 1800 ml Results/Medications Result Diagram: 07/07/18 0516 07/08/18 0458 Results 24 hrs Laboratory Tests Test 07/07/18 11:50 07/07/18 17:18 07/07/18 20:29 07/08/18 02:09 Bedside Glucose 101 91 182 106 Test 07/08/18 04:58 07/08/18 07:40 Sodium Level 143 Potassium Level 4.1 Chloride Level 108 Carbon Dioxide Level 27 Anion Gap 8 Blood Urea Nitrogen 37 H Creatinine 1.94 H Est Glomerular 36 L Filtrat Rate mL/min Glucose Level 95 Calcium Level 9.3 Phosphorus Level 4.0 Magnesium Level 1.7 Bedside Glucose 106 Home Meds Reported Medications Atorvastatin* (Atorvastatin*) 80 Mg Tablet, 80 MG PO QHS, #30 TAB 07/05/18 Clopidogrel Bisulfate* (Clopidogrel Bisulfate*) 75 Mg Tablet, 75 MG PO DAILY, #30 TAB 07/05/18 Fenofibrate, Micronized* (Fenofibrate*) 160 Mg Tablet, 160 MG PO DAILY, TAB 07/05/18 Insulin Glargine,Hum.rec.anlog (Violetaaglgala Baileypen U-100) 100 Unit/1 Ml Insuln.pen, 80 UNIT SC QAM, EA 07/05/18 Icosapent Ethyl (VASCEPA) 1 Gm Capsule, 2 GM PO BID, CAP 07/05/18 Atenolol* (Atenolol*) 50 Mg Tablet, 50 MG PO DAILY, #30 TAB 07/05/18 Linagliptin (TRADJENTA) 5 Mg Tablet, 5 MG PO DAILY, TAB 07/05/18 Metoprolol Succinate* (Toprol XL*) 25 Mg Tab.sr.24h, 25 MG PO DAILY, #30 TAB 07/05/18 Fenofibrate (Triglide) 160 Mg Tablet, 160 MG PO DAILY, TAB 07/05/18 Glimepiride* (Glimepiride*) 4 Mg Tablet, 4 MG PO WITH BREAKFAST DINNE, TAB 07/05/18 Aspirin* (Aspirin* EC) 81 Mg Tablet.dr, 81 MG PO DAILY, TAB 07/05/18 Discontinued Reported Medications Aspirin (Low Dose Aspirin) 81 Mg Tablet.dr, 81 MG PO DAILY, #30 TAB 12/27/17 Niacin* (Niacin* ER) 1,000 Mg Tablet.sa, 1500 MG PO QHS, #30 TAB 12/27/17 Insulin Glargine,Hum.rec.anlog (Tofreddieo Nakiairenear) 300 Unit/1 Ml Insuln.pen, 30 UNIT SQ QHS, EA 12/27/17 [place]-3 Acid Ethyl Esters (Lovaza) 1 Gm Capsule, 2 GM PO BID, CAP 12/27/17 Linagliptin (TRADJENTA) 5 Mg Tablet, 5 MG PO DAILY, TAB 12/27/17 Fenofibrate, Micronized* (Fenofibrate*) 160 Mg Tablet, 160 MG PO DAILY, TAB 12/27/17 Glimepiride* (Glimepiride*) 4 Mg Tablet, 4 MG PO WITH BREAKFAST DINNE, TAB 12/27/17 Discontinued Scripts Metoprolol Succinate* (Toprol XL*) 25 Mg Tab.sr.24h, 25 MG PO DAILY, #60 TAB Prov:ANNEMARIE HENRY MD 04/22/18 Atorvastatin* (Atorvastatin*) 80 Mg Tablet, 80 MG PO DAILY@21, #60 TAB Prov:ANNEMARIE HENRY MD 04/22/18 Clopidogrel Bisulfate (Clopidogrel) 75 Mg Tablet, 75 MG PO DAILY, #60 TAB Prov:ANNEMARIE HENRY MD 04/22/18 Ondansetron (Ondansetron Odt) 4 Mg Tab.rapdis, 4 MG PO Q6H PRN for NAUSEA AND/OR VOMITING, #10 TAB Prov:SAEED ROMANO MD 02/16/18 Hydrocodone/Acetaminophen ([place] 5-325 Tablet) 1 Each Tablet, 1 TAB PO Q6H PRN for PAIN, #7 TAB Prov:SAEED ROMANO MD 02/16/18 Medications Current Medications IV Flush (NS 3 ml) 3 ml PER PROTOCOL IV ; Start 07/05/18 at 22:00 Ondansetron HCl (Zofran Inj) 4 mg Q6H PRN IV NAUSEA/VOMITING; Start 07/05/18 at 22:00 Acetaminophen (Tylenol Tab) 650 mg Q6H PRN PO .PAIN 1-3 OR TEMP; Start 07/05/18 at 22:00 Heparin Sodium (Porcine) (Heparin (5000 Units/1ml)) 5,000 unit Q12 SC Last administered on 07/07/18at 20:33; Admin Dose 5,000 UNIT; Start 07/06/18 at 09:00 Albuterol/ Ipratropium (Duoneb) 3 ml Q2H RESP THERAPY PRN HHN SHORTNESS OF BREATH; Start 07/05/18 at 22:00 Aspirin (Halfprin) 81 mg DAILY PO Last administered on 07/07/18at 09:10; Admin Dose 81 MG; Start 07/06/18 at 09:00 Atorvastatin Calcium (Lipitor) 80 mg QHS PO Last administered on 07/07/18at 20:31; Admin Dose 80 MG; Start 07/06/18 at 21:00 Clopidogrel Bisulfate (plaVIX) 75 mg DAILY PO Last administered on 07/07/18at 09:10; Admin Dose 75 MG; Start 07/06/18 at 09:00 Fenofibrate (Tricor) 145 mg DAILY PO Last administered on 07/07/18at 09:10; Admin Dose 145 MG; Start 07/06/18 at 09:00 Diagnostic Test (Pha) (Accu-Chek) 1 ea 02 XX Last administered on 07/08/18at 02:13; Admin Dose 1 EA; Start 07/07/18 at 02:00 Insulin Aspart (Novolog Insulin Pen) NOVOLOG *MILD* ALGORITHM WITH MEALS BEDTIME SC Last administered on 07/07/18at 20:32; Admin Dose 1 UNIT; Start 07/06/18 at 12:00 Miscellaneous Information 1 ea NOTE XX ; Start 07/06/18 at 11:30 Glucose (Glutose) 15 gm Q15M PRN PO DECREASED GLUCOSE; Start 07/06/18 at 11:30 Glucose (Glutose) 22.5 gm Q15M PRN PO DECREASED GLUCOSE; Start 07/06/18 at 11:30 Dextrose (D50w Syringe) 25 ml Q15M PRN IV DECREASED GLUCOSE; Start 07/06/18 at 11:30 Dextrose (D50w Syringe) 50 ml Q15M PRN IV DECREASED GLUCOSE; Start 07/06/18 at 11:30 Glucagon (Glucagen) 1 mg Q15M PRN IM DECREASED GLUCOSE; Start 07/06/18 at 11:30 Glucose (Glutose) 15 gm Q15M PRN BUCCAL DECREASED GLUCOSE; Start 07/06/18 at 11:30 Insulin Glargine (Lantus) 25 units DAILY@2000 SC Last administered on 07/07/18at 20:32; Admin Dose 25 UNITS; Start 07/06/18 at 20:00 Linagliptin (Tradjenta) 5 mg DAILY PO Last administered on 07/07/18at 09:11; Admin Dose 5 MG; Start 07/07/18 at 09:00 Metoprolol Succinate (Toprol Xl) 12.5 mg DAILY PO Last administered on 07/07/18at 09:11; Admin Dose 12.5 MG; Start 07/07/18 at 09:00 Assessment/Plan Hospital Course (Demo Recall) 1. hypoglycemia 2. CAD 3/ S/P NSTEMI April 2018 4. s/p PCI RCA April 2018 5. HTN 6. Dyslipidemia 7/ DM 9/ PAFIB: CURRENTLY IN NSR 10 Hypo Mg REC Diabetic management as per internal medicine. Continue with aspirin and Plavix cont low dose metoprolol only due to bradycardia Electrolyte including magnesium will be replaced Continue with high-dose statin. will add zetia as well DC planning as per internal medicine. Patient already has had a cardiology follow-up with me on August 02 at 10:30 AM. We will keep the appointment and see him in the office Thank you for his referral. We will continue to follow along with you SANTIAGO RENTERIA MD [facility] SANTIAGO RENTERIA MD July 08, 2018 08:31
[2018-07-08] MEDS ORDERED: EZETIMIBE 10 MG TAB PO SCH (09:00)
--- NOTE | 2018-07-08 09:22 | PN ---
DATE: 07/08/2018 SUBJECTIVE: The patient is stable. No events overnight. OBJECTIVE: VITAL SIGNS: Blood pressure is 107/69, pulse 61, respirations 17, temperature 98.3. HEENT: Normocephalic. NECK: Supple. HEART: Regular rate. LUNGS: Show diminished breath sounds at base. ABDOMEN: Soft, nontender to palpation without rebound or guarding. EXTREMITIES: Negative for clubbing, cyanosis, trace edema. DERMATOLOGIC: No rashes. MUSCULOSKELETAL: No joint effusion. NEUROLOGIC: No change in exam. MEDICATIONS: Have been reviewed. LABORATORY DATA: Has been reviewed. ASSESSMENT AND PLAN: 1. Nonoliguric acute kidney injury on top of chronic kidney disease, stage II. Etiology of acute ki dney injury is secondary to hemodynamics. Renal function has been fluctuating but overall stable. C ontinue current plan, supportive care, renally dose all meds. 2. Anemia. Monitor hemoglobin and hematocrit levels. 3. Mineral bone disorder. Monitor calcium and phosphorus levels. 4. Hypertension. Continue current blood pressure regimen. 5. Hypomagnesemia. Continue to monitor and replete as needed. 6. History of coronary artery disease. Continue current treatment plan. 7. Hypoglycemia, improved. Continue current diabetic regimen. Dictated By: DEVORA KUMARI DO NR/NTS Conf#: [id number] DID#: [id number] CC: GIBSON DING MD;*EndCC*
[2018-07-08] MEDS ORDERED: EZET10TA32 PO (10:54)
[2018-07-08] MEDS ORDERED: INSU100I33 SC (10:54)
[2018-07-08] MEDS ORDERED: METO-335 PO (10:54)
--- NOTE | 2018-07-08 10:59 | DS ---
Date/Time of Note Date/Time of Note DATE: 07/08/18 TIME: 10:59 Discharge Summary Admission/Discharge Info Admit Date/Time July 06, 2018 at 09:01 Discharge Date/Time Patient Condition: Stable Hospital Course Patient is a male with a past medical history significant for diabetes mellitus, chronic kidney disease, hypertension, coronary artery disease with maykel nt to the RCA who presented to [facility] with dizziness and generalized weakness and found to be profoundly hypoglycemic. It was found out that patient does not need such high doses of his diabetic medications and did well on a decreased dose of his medications. Patient will not be discharged with a decreased dose of his long-acting insulin as well as appropriate oral insulin medications. Patient was seen by his biologist aide and a ironer machine in both concluded that patient is stable for discharge to follow-up with his normal biologist aide and is scheduled appointment. Patient's medications were adjusted and will be discharged with appropriate changes back to his assisted living facility. Patient doing well with no acute complaints, dizziness and generalized weakness is completely resolved at this time. Discharge diagnosis Hypoglycemia, resolved Dizziness, resolved Generalized weakness, resolved Coronary artery disease with stent to the RCA, chronic Diabetes mellitus, chronic Chronic kidney disease, Hypertension, chronic Home Meds Active Scripts Metoprolol Succinate* (Toprol XL*) 25 Mg Tab.sr.24h, 12.5 MG PO DAILY for 30 Days, #15 1 Refill Prov:PORTIA BELL 07/08/18 Ezetimibe (Ezetimibe) 10 Mg Tablet, 10 MG PO DAILY for 30 Days, #30 TAB 0 Refills Prov:PORTIA BELL 07/08/18 Insulin Glargine,Hum.rec.anlog (Basaglar Kwikpen U-100) 100 Unit/1 Ml Insuln.pen, 25 UNIT SC QPM for 30 Days, EA 2 Refills Prov:PORTIA BELL 07/08/18 Reported Medications Atorvastatin* (Atorvastatin*) 80 Mg Tablet, 80 MG PO QHS, #30 TAB 07/05/18 Clopidogrel Bisulfate* (Clopidogrel Bisulfate*) 75 Mg Tablet, 75 MG PO DAILY, #30 TAB 07/05/18 Fenofibrate, Micronized* (Fenofibrate*) 160 Mg Tablet, 160 MG PO DAILY, TAB 07/05/18 Icosapent Ethyl (VASCEPA) 1 Gm Capsule, 2 GM PO BID, CAP 07/05/18 Atenolol* (Atenolol*) 50 Mg Tablet, 50 MG PO DAILY, #30 TAB 07/05/18 Linagliptin (TRADJENTA) 5 Mg Tablet, 5 MG PO DAILY, TAB 07/05/18 Metoprolol Succinate* (Toprol XL*) 25 Mg Tab.sr.24h, 25 MG PO DAILY, #30 TAB 07/05/18 Fenofibrate (Triglide) 160 Mg Tablet, 160 MG PO DAILY, TAB 07/05/18 Glimepiride* (Glimepiride*) 4 Mg Tablet, 4 MG PO WITH BREAKFAST DINNE, TAB 07/05/18 Aspirin* (Aspirin* EC) 81 Mg Tablet.dr, 81 MG PO DAILY, TAB 07/05/18 Discontinued Reported Medications Aspirin (Low Dose Aspirin) 81 Mg Tablet.dr, 81 MG PO DAILY, #30 TAB 12/27/17 Niacin* (Niacin* ER) 1,000 Mg Tablet.sa, 1500 MG PO QHS, #30 TAB 12/27/17 Insulin Glargine,Hum.rec.anlog ([place] Solostar) 300 Unit/1 Ml Insuln.pen, 30 UNIT SQ QHS, EA 12/27/17 [place]-3 Acid Ethyl Esters (Lovaza) 1 Gm Capsule, 2 GM PO BID, CAP 12/27/17 Linagliptin (TRADJENTA) 5 Mg Tablet, 5 MG PO DAILY, TAB 12/27/17 Fenofibrate, Micronized* (Fenofibrate*) 160 Mg Tablet, 160 MG PO DAILY, TAB 12/27/17 Glimepiride* (Glimepiride*) 4 Mg Tablet, 4 MG PO WITH BREAKFAST DINNE, TAB 12/27/17 Discontinued Scripts Metoprolol Succinate* (Toprol XL*) 25 Mg Tab.sr.24h, 25 MG PO DAILY, #60 TAB Prov:ANNEMARIE HENRY MD 04/22/18 Atorvastatin* (Atorvastatin*) 80 Mg Tablet, 80 MG PO DAILY@21, #60 TAB Prov:ANNEMARIE HENRY MD 04/22/18 Clopidogrel Bisulfate (Clopidogrel) 75 Mg Tablet, 75 MG PO DAILY, #60 TAB Prov:ANNEMARIE HENRY MD 04/22/18 Ondansetron (Ondansetron Odt) 4 Mg Tab.rapdis, 4 MG PO Q6H PRN for NAUSEA AND/OR VOMITING, #10 TAB Prov:SAEED ROMANO MD 02/16/18 Hydrocodone/Acetaminophen ([place] 5-325 Tablet) 1 Each Tablet, 1 TAB PO Q6H PRN for PAIN, #7 TAB Prov:SAEED ROMANO MD 02/16/18 Primary Care Provider Not On Staff Doctor Pending Labs Laboratory Tests Test 07/07/18 11:50 07/07/18 17:18 07/07/18 20:29 07/08/18 02:09 Bedside 101 91 182 106 Glucose mg/dL (70-220) mg/dL (70-220) mg/dL (70-220) mg/dL (70-220) Test 07/08/18 04:58 07/08/18 07:40 Sodium Level 143 mmol/L (135-144 ) Potassium 4.1 Level mmol/L (3.5-5.1 ) Chloride Level 108 mmol/L (97-110) Carbon Dioxide 27 Level mmol/L (21-31) Anion Gap 8 (5-13) Blood Urea 37 mg/dl (7-20) Nitrogen Creatinine 1.94 mg/dl (0.61-1.2 4) Est Glomerular 36 mL/min (>60) Filtrat Rate mL/min Glucose Level 95 mg/dl (70-220) Calcium Level 9.3 mg/dl (8.4-10.2 ) Phosphorus 4.0 Level mg/dl (2.5-4.9) Magnesium 1.7 Level mg/dl (1.7-2.5) Bedside 106 Glucose mg/dL (70-220) PORTIA BELL July 08, 2018 10:59
--- NOTE | 2018-07-08 11:00 | PDOCDIS ---
Discharge Instructions CONDITION [id number] Patient Condition: [id number] Stable FOLLOW UP/APPOINTMENTS Follow-up Plan 1. Please note that your medication doses have changed, please stop atenolol, glimepiride and current dose of metoprolol, new prescriptions for diabetic medications as well as a reduced dose of metoprolol has been given. 2. 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 PORTIA BELL July 08, 2018 11:00
[2018-07-08 11:13] VITALS: BP 105/66; PULSE 68; RESP 18
== END 2018-07-08 15:05 | disposition home or self-care (01) | DRG 639 ==
LOC: E/R 18:15 → 6WM 19:48 → OBSVTOIN 07-06 09:01
PROVIDERS: ADMIT Internal Medicine; ATTEND Internal Medicine
DX: E11.649 Type 2 diabetes mellitus with hypoglycemia without coma (principal); T38.3X5A Adverse effect of insulin and oral hypoglycemic [antidiabetic] drugs, initial encounter; I25.10 Atherosclerotic heart disease of native coronary artery without angina pectoris; Z95.5 Presence of coronary angioplasty implant and graft; I12.9 Hypertensive chronic kidney disease with stage 1 through stage 4 chronic kidney disease, or unspecified chronic kidney disease; E11.22 Type 2 diabetes mellitus with diabetic chronic kidney disease; N18.9 Chronic kidney disease, unspecified; Z85.828 Personal history of other malignant neoplasm of skin; E78.5 Hyperlipidemia, unspecified; I25.2 Old myocardial infarction; I48.0 Paroxysmal atrial fibrillation; E83.42 Hypomagnesemia; N17.9 Acute kidney failure, unspecified
CPT/HCPCS: 36415; 71045; 80048; 80053; 80061; 80307; 81003; 82043; 82550; 82553; 82962; 83036; 83735; 83880; 84100; 84155; 84300; 84439; 84443; 84484; 85025; 93005; G0378; J1644; J1815

== ENCOUNTER 2018-09-04 21:19 | Emergency (ER) | payer MEDICARE, BC ==
[~2018-09-04] VITALS: Ht 172.7 cm; Wt 109.5 kg
[~2018-09-04 21:19] MED LIST changes: +ASPI-817 PO; -ASPI81TA52 PO; +CLOP75TA19 PO; -CLOP75TA28 PO; +EZET10TA32 PO; +FENO160T10 PO; -FENO160T13 PO; -GLIM4TAB PO; -HYDR-4011 PO; +ICOS1CAP PO; +INSU100I33 SC; -INSU300I SQ; -NIAC1000 PO; -OMEG1CAP2 PO; -ONDA4TAB14 PO
[2018-09-04 21:24] VITALS: Ht 172.7 cm; Wt 109.5 kg
[2018-09-04] MEDS ORDERED: IBUPROFEN 600 MG TAB PO ONE (22:00)
[2018-09-04] MEDS ORDERED: IBUP-1542 PO (22:40)
--- NOTE | 2018-09-04 22:41 | ERD ---
ER Documentation Chief Complaint Chief Complaint 3 falls today from "dizziness", started PO baclofen 3 days ago HPI This is a 58-year-old man with a history of chronic back pain brought in by EMS from boarding care facility after mechanical fall, he does recall the entire episode and states he fell onto his buttocks and complains of low back pain. He denies headache or blurry vision, no paresis or paresthesias, no chest pain or shortness of breath, no loss of consciousness. Patient was transported here by EMS without further complications ROS All systems reviewed and are negative except as per history of present illness. Medications Home Meds Active Scripts Ibuprofen* (Ibuprofen*) 600 Mg Tablet, 600 MG PO Q8 PRN for PAIN AND/OR INFLAMMATION, #30 TAB Prov:PORTIA DUCKWORTH MD 09/04/18 Metoprolol Succinate* (Toprol XL*) 25 Mg Tab.sr.24h, 12.5 MG PO DAILY for 30 Days, #15 1 Refill Prov:PORTIA BELL 07/08/18 Ezetimibe (Ezetimibe) 10 Mg Tablet, 10 MG PO DAILY for 30 Days, #30 TAB 0 Refills Prov:PORTIA BELL 07/08/18 Insulin Glargine,Hum.rec.anlog (Basaglar Kwikpen U-100) 100 Unit/1 Ml Insuln.pen, 25 UNIT SC QPM for 30 Days, EA 2 Refills Prov:PORTIA BELL 07/08/18 Reported Medications Atorvastatin* (Atorvastatin*) 80 Mg Tablet, 80 MG PO QHS, #30 TAB 07/05/18 Clopidogrel Bisulfate* (Clopidogrel Bisulfate*) 75 Mg Tablet, 75 MG PO DAILY, #30 TAB 07/05/18 Icosapent Ethyl (VASCEPA) 1 Gm Capsule, 2 GM PO BID, CAP 07/05/18 Linagliptin (TRADJENTA) 5 Mg Tablet, 5 MG PO DAILY, TAB 07/05/18 Fenofibrate (Triglide) 160 Mg Tablet, 160 MG PO DAILY, TAB 07/05/18 Aspirin* (Aspirin* EC) 81 Mg Tablet.dr, 81 MG PO DAILY, TAB 07/05/18 Allergies Allergies: Coded Allergies: No Known Allergy (Unverified , 07/05/18) PMhx/Soc Diabetes mellitus, hypertension, chronic back pain, History of Surgery: Yes (SKIN CA SURGERY,L KIDNEY TUMOR REMOVAL,) Anesthesia Reaction: No Hx Neurological Disorder: No Hx Respiratory Disorders: No Hx Cardiac Disorders: Yes (HTN, IN w/ stent X1) Hx Psychiatric Problems: No Hx Miscellaneous Medical Probl: Yes (TRIGEMINY PVC) Hx Alcohol Use: No Hx Substance Use: No Hx Tobacco Use: No Smoking Status: Never smoker FmHx Family History: No diabetes Physical Exam Vitals Vital Signs Date Temp Pulse Resp B/P (MAP) Pulse Ox O2 O2 Flow FiO2 Time Delivery Rate 09/04/18 97.5 80 18 137/93 96 21:24 (108) Physical Exam Const: No acute distress, well-developed well-nourished, afebrile HEENT: No cervical spine tenderness or deformity Resp: Clear to auscultation bilaterally Cardio: Regular rate and rhythm, no murmurs Skin: No petechiae or rashes, no lacerations or abrasions Back: No midline or flank tenderness, no ecchymosis, hematomas, or contusions Ext: No cyanosis, or edema, calves symmetrical Neur: Awake and alert x3, no focal deficits or facial asymmetry Psych: Normal Mood and Affect Results 24 hrs Current Medications Medications Dose Sig/Julisa Start Time Status Last (Trade) Ordered Route PRN Stop Time Admin Dose Reason Admin Ibuprofen 600 mg ONCE ONCE 09/04/18 DC 09/04/18 (Motrin) PO 22:00 22:21 09/04/18 22:01 Procedures/MDM I administered ibuprofen 600 mg p.o. X-ray LS-Spine 3V Interpreted by me: Bones: No fracture, or lytic lesions Joints: Anterolisthesis of L2 with questionable compression fracture. Foreign body: None Patient's pain was controlled and vital signs are normal, he looks well will be discharged back to the boarding care facility for continued outpatient management Patient feels much better at this time, and vital signs are normal, symptoms have improved. I did give strict instructions to return to the ED if symptoms continue or worsen, patient will otherwise follow-up with primary care ph ysician. Patient understood instructions and agreed to plan. Disclaimer: Inadvertent spelling and grammatical errors are likely due to EHR/dictation software use and do not reflect on the overall quality of patient care. Also, please note that the electronic time recorded on this note does not necessarily reflect the actual time of the patient encounter. Departure Diagnosis: Primary Impression: Back pain Back pain location: low back pain Chronicity: chronic Back pain laterality: bilateral Sciatica presence: without sciatica Qualified Codes: M54.5 - Low back pain; G89.29 - Other chronic pain Condition: Good Patient Instructions: Back Pain (Acute Or Chronic), Fall, Mechanical PORTIA DUCKWORTH MD Sep 04, 2018 22:41
[2018-09-05 01:00] VITALS: BP 139/92; PULSE 74; RESP 20
== END 2018-09-05 01:04 | disposition home or self-care (01) ==
LOC: E/R 21:19
DX: M54.31 Sciatica, right side (principal); M54.32 Sciatica, left side; G89.29 Other chronic pain; I10 Essential (primary) hypertension; I25.2 Old myocardial infarction; E11.9 Type 2 diabetes mellitus without complications; Z85.828 Personal history of other malignant neoplasm of skin; Z79.4 Long term (current) use of insulin; Z79.82 Long term (current) use of aspirin; Z79.02 Long term (current) use of antithrombotics/antiplatelets
CPT/HCPCS: 72100